=== PATIENT | male | born 1950 | race Caucasian/White ===

== ENCOUNTER 2017-02-08 11:38 | Observation (INO) ==
[2017-02-08] MEDS ORDERED: NALOXONE 0.4 MG/ML VIAL IV STA (12:05)
[2017-02-08] MEDS ORDERED: SODIUM CHLORIDE 0.9% 1,000 ML IV STA ×2 (12:05→14:38)
--- NOTE | 2017-02-08 12:24 | XRay Report ---
XR chest 1V portable Indication: Altered mental status Comparison: Chest x-ray dated June 09, 2016 Technique: Single frontal view of the chest Findings: The cardiomediastinal silhouette is stable in configuration. Chronic change of the lungs without focal consolidation, pleural effusion, or pneumothorax. Visualized osseous and surrounding soft tissue structures appear grossly unchanged. IMPRESSION: Stable chest x-ray without acute cardiopulmonary process demonstrated. PROCEDURE INTERPRETED AT [facility] DEPARTMENT OF RADIOLOGY Final Report Signed by: Dr Aditya Herman
--- NOTE | 2017-02-08 12:26 | CT Report ---
CT head/brain wo con Indication: Mental status changes Comparison: CT brain dated June 09, 2015 Technique: Multiple axial tomographic images of the brain were obtained without the use of intravenous contrast. Findings: Midline structures are nondisplaced. There is no acute intracranial hemorrhage or evidence of hydrocephalus. Moderate periventricular and subcortical hypoattenuation noted which is nonspecific but consistent with chronic microvascular ischemic change. Old lacunar infarcts of bilateral basal ganglia and left webber radiata frontal lobe. Patchy ethmoid opacification. Mastoid air cells are clear. IMPRESSION: No acute intracranial abnormality demonstrated. Chronic findings as detailed above. The CT exam was performed using one or more of the following dose reduction techniques: Automated exposure control, adjustment of the mA and/or kV according to patient size, or use of iterative reconstruction technique. PROCEDURE INTERPRETED AT [facility] DEPARTMENT OF RADIOLOGY Final Report Signed by: Dr Aditya Herman
[2017-02-08] MEDS ORDERED: NALOXONE 0.4 MG/ML VIAL ONE (12:30)
[2017-02-08 12:44] LABS: Basophils # 0.1 10*3/uL (0.0-0.2); Basophils % 0.8 % (0.0-0.8); Eosinophils # 0.4 10*3/uL (0.0-0.87); Eosinophils % 4.3 % (0.00-10.9); Hematocrit 34.1 VOL% (42.0-52.0); Hemoglobin 11.6 GM/DL (14.0-18.0); Immature Granulocytes % 0.8 %; Immature Granulocytes Absolute 0.08 #; Lymphocytes # 2.8 10*3/uL (1.4-4.0); Lymphocytes % 28.9 % (21.2-54.2); Mean Corpuscular Hemoglobin 29 PG (27-34); Mean Corpuscular Volume 85.9 FL (87-102); Mean Platelet Volume 10.8 FL (9.6-12.0); Monocytes # 0.8 10*3/uL (0.11-0.8); Neutrophils # 5.6 10*3/uL (1.4-7.4); Neutrophils % 57.2 % (38.7-73.9); Platelet Count 176 T/CUMM (130-400); Red Blood Count 3.97 MC/CUMM (3.8-5.5); Red Cell Distribution Width 13.3 % (9.3-17.3); White Blood Count 9.8 T/CUMM (4-12)
[2017-02-08 13:08] LABS: Barbiturates Screen,Urine Negative (Negative); Benzodiazepines Screen,Urine Positive (Negative); Cannabinoid Screen,Urine Negative (Negative); Opiate Screen,Urine Positive (Negative); Phencyclidine Screen,Urine Negative (Negative)
[2017-02-08 13:24] LABS: Alanine Aminotransferase 18 U/L (16-61); Albumin 3.1 G/DL (3.4-5.0); Alkaline Phosphatase 44 U/L (45-117); Aspartate Amino Transferase 13 U/L (0-37); Bilirubin,Total < 0.39 MG/DL (0.2-1.0); Blood Urea Nitrogen 17 MG/DL (7-18); Calcium 8.4 MG/DL (8.5-10.1); Glucose 130 MG/DL (74-106); Magnesium 1.8 MG/DL (1.8-2.4); Osmolality,Calculated 282.4 MOS/KG (273-304); Potassium 3.6 MMOL/L (3.5-5.1); Sodium 140 MMOL/L (136-145); Total Protein 6.1 G/DL (6.4-8.3)
--- NOTE | 2017-02-08 14:37 | Emergency Department Note ---
Melvi Caldwell Hilary, am scribing for, and in the presence of, Osman Hampton MD 12:05. Memo Caldwell Phillip K, MD, personally performed the services described in this documentation, ascribed by Dary Ogden in my presence, and it is both accurate and complete [id number] . Arrival - Arrival Chief Complaint: Altered Mental Status Stated Complaint: altered mental status ED Nursing Triage Note: Brought in per EMS from [facility] with c/o altered mental status. Patient admits to taking Zanaflex x 2, Xanax x 1 this am. Was in process of being admitted to [facility] and became unresponsive and hypotensive 56/36. Arousable to verbal stimuli. Mode of Arrival: Stretcher Limitations: No Limitations Source: Patient, RN Notes Reviewed - History of Present Illness HPI Narrative: Pt is a 66 y/o male brought into the ED via EMS from [facility] with c/ o AMS. Pt was in the process of being admitted to [facility] and became unresponsive and hypotensive. Pt admits to taking Zanaflex x2, Xanax x1 this AM. No other complaints or problems stated in the ED. Allergies/Adverse Reactions: Allergies Allergy/AdvReac Type Severity Reaction Status Date / Time ketorolac [From Toradol] AdvReac Severe Flushing Verified 02/08/17 11:45 Home Medications: Home Medications Medication Instructions Recorded Confirmed Type Albuterol Sulfate [Proair HFA] 2 puff INH Q6H PRN 08/11/15 02/08/17 History Atorvastatin [Lipitor] 40 mg PO BEDTIME 08/11/15 02/08/17 History Gabapentin 600 mg PO BID 08/11/15 02/08/17 History HYDROcodone/ACETAMIN 10-325 [Eldena 10 mg PO Q6HR PRN 08/11/15 02/08/17 History 10-325] Lisinopril 20 mg PO DAILY 08/11/15 02/08/17 History Metformin HCl 1,000 mg PO BID 08/11/15 02/08/17 History Sertraline [Zoloft] 100 mg PO BID 08/11/15 02/08/17 History sitaGLIPtin [Januvia] 100 mg PO DAILY 08/11/15 02/08/17 History Insulin Detemir [Levemir] 20 units SUBCUT BEDTIME 10/29/16 02/08/17 History Ticagrelor [Brilinta] 90 mg PO BID 10/29/16 02/08/17 History QUEtiapine [SEROquel] 100 mg PO TID #90 tablet 11/10/16 02/08/17 Rx Zaleplon [Sonata] 5 mg PO BEDTIME PRN #30 capsule 11/10/16 02/08/17 Rx traZODone [Desyrel] 50 mg PO TID #90 tablet 11/10/16 02/08/17 Rx ALPRAZolam [Alprazolam] 1 mg PO BID PRN 02/08/17 02/08/17 History Finasteride 5 mg PO DAILY 02/08/17 02/08/17 History Gabapentin 1,200 mg PO BEDTIME 02/08/17 02/08/17 History OXcarbazepine [Oxcarbazepine] 300 mg PO BID 02/08/17 02/08/17 History Thiothixene 10 mg PO TID 02/08/17 02/08/17 History Tizanidine HCl 4 mg PO BEDTIME 02/08/17 02/08/17 History Review of System - Review of System ROS unobtainable: due to mental status 12 point system: reviewed and no additional remarkable complaints except as stated Medical,Surgical,& Family Hx - Medical History Cardio: History of: CAD (Cardiac stent), Hypertension Psychological: History of: Anxiety Disorders, Depression No history of: Behavior Problems ("I DON'T KNOW IF I HAVE OR NOT..."), Violent Behavior, Psychiatric Problems Neurology: No history of: Seizures Endocrine: History of: Diabetes Mellitus (IDDM), Diabetes Mellitus (NIDDM), Dyslipidemia Respiratory: History of: Bronchitis, COPD Genitourinary: History of: Prostate Problems (DIFFICULTY URINATING) Musculoskeletal: History of: Amputation (Right AKA), Back/Neck Problems - Surgical History Cardiac Surgeries: Sugical HX of: Cardiac Catheterization (has had stents of coronary arteries) Orthopedic Surgeries: Surgical HX of;: Orthopedic Surgery (PLATE IN LEFT HIP 2010. Patient has right [id number] amputation) - Family History Family History: Reports;: Family Heart Disease - Social History Smoking Status: Current every day smoker Frequency of Alcohol Use: Unknown Type of Drug Use: Unknown Exam Vital Signs: Vital Signs Temperature 97.1 F L 02/08/17 11:42 Pulse Rate 89 02/08/17 11:42 Respiratory Rate 16 02/08/17 11:42 Blood Pressure 71/43 02/08/17 11:42 O2 Sat by Pulse Oximetry 94 L 02/08/17 11:38 - General General appearance: in no apparent distress, lethargic - Head Head exam: Present: atraumatic, normocephalic - Eye Eye exam: Present: normal appearance, PERRL, EOMI - ENT ENT exam: Present: mucous membranes dry, TM's normal bilaterally. Absent: mucous membranes moist - Neck Neck exam: Present: full ROM, trachea midline. Absent: tenderness - Chest Chest inspection: Present: symmetric chest wall rise. Absent: tenderness - Respiratory Respiratory exam: Present: normal lung sounds bilaterally. Absent: respiratory distress - Cardiovascular Cardiovascular exam: Present: regular rate, normal rhythm, normal heart sounds. Absent: murmur, rubs, gallop - Abdominal Exam Abdominal exam: Present: soft, normal bowel sounds. Absent: distention, tenderness - Extremities Exam Extremities exam: Present: full ROM, other (right above knee amputation ). Absent: tenderness - Back Exam Back exam: Present: full ROM. Absent: tenderness - Neurological Exam Neurological exam: Present: alert, oriented X3, CN II-XII intact. Absent: motor sensory deficit - Psychiatric Psychiatric exam: Present: normal affect, normal mood - Skin Skin exam: Present: warm, dry, intact, normal color. Absent: rash Course Course Narrative: Admit to the hospitalist Results - Labs CBC & BMP: 02/08/17 12:23 02/08/17 12:23 Lab Results: I have reviewed the patients labs Labs: Laboratory Tests 02/08/17 12:23 WBC 9.8 RBC 3.97 Hgb 11.6 L Hct 34.1 L MCV 85.9 L Laboratory Tests 02/08/17 02/08/17 12:23 12:23 Sodium 140 Potassium 3.6 Chloride 103 Carbon Dioxide 27 Glucose 130 H Calcium 8.4 L Alkaline Phosphatase 44 L Total Protein 6.1 L Albumin 3.1 L Albumin/Globulin Ratio 1.0 L Urine Opiates Screen Positive H U Benzodiazepines Scrn Positive H Serum Alcohol < 15 L - Diagnostic Findings Procedure: Chest x-ray: report reviewed by me (Stable chest x-ray without acute cardiopulmonary process demonstrated. ), CT: report reviewed by me (head/brain: No acute intracranial abnormality demonstrated. ) Disposition Clinical Impression: Hypotension, Altered mental status Case discussed with: patient Disposition: Still a Patient Condition: Guarded Additional Instructions: Admit to the hospitalist
[2017-02-08] MEDS ORDERED: ACETAMINOPHEN 325 MG TABLET PO PRN (16:38)
[2017-02-08] MEDS ORDERED: ONDANSETRON 4 MG/2 ML VIAL IV PRN (16:38)
[2017-02-08] MEDS ORDERED: DEXTROSE 50% 25 GM/50 ML VIAL IV PRN (16:48)
[2017-02-08] MEDS ORDERED: GLUCAGON 1 MG VIAL IM PRN (16:48)
[2017-02-08] MEDS: SODIUM CHLORIDE 0.9% 1,000 ML IV SCH (16:58)
[2017-02-08] MEDS ORDERED: ENOXAPARIN 40 MG/0.4 ML SYRINGE SUBCUT SCH (17:00)
--- NOTE | 2017-02-08 17:13 | Hospitalist History & Physical ---
Assessment and Plan (1) Suicidal ideation Status: Acute Current Visit: Yes (2) Major depressive disorder Status: Acute Current Visit: No (3) Anxiety disorder Status: Acute Current Visit: No (4) History of right above knee amputation Status: Acute Current Visit: No (5) Hypotension Status: Acute Current Visit: Yes (6) Altered mental status Status: Acute Assessment and plan: Our plan for this patient will be admission to ICU. Patient will be closely observed. Will consult case management for assistance. We will continue with IV fluids. Check labs in the morning. Hopefully if everything is okay patient can be referred to [facility] tomorrow. We will hold some of his sedating medications at this time. Current Visit: Yes History of Present Illness Chief complaint: Hypotensive decreased responsiveness History of present illness: Mr. Luna is a 66 year old male with past medical history of coronary artery disease, diabetes, depression and prescription drug overuse presents to our ER today. Patient lives with her sister. She feels like she has to watch him all the time. She said he was fine this morning she got in the shower but when she got out he was lying down on the bed. He was very drowsy and hard to arouse. Today was the day he was supposed to be admitted to [facility]. Patient took some Zanaflex and some Xanax. Patient's family seems to be very angry with his doctor prescribing him Xanax. They claim that they did not know that he had any more Xanax. They say typically he takes his months prescription in the first 3 or 4 days. And this I want to take run through Xanax he takes [place]'s or other medications that he is prescribed. He does seem to overindulge in these medications. Apparently they were taken amount to [facility] and shaking him and in his blood pressure was low and they referred him to our emergency room. Patient received 2 L of normal saline while in the emergency room he is still lethargic I was consulted to admit him. I was looking to the paperwork in the chart and apparently patient is expressed desire to hurt himself. I am consulted to admit him for decreased responsiveness suicidal ideation and altered mental status Home Medications Medication Instructions Recorded Confirmed Type Albuterol Sulfate [Proair HFA] 2 puff INH Q6H PRN 08/11/15 02/08/17 History Atorvastatin [Lipitor] 40 mg PO BEDTIME 08/11/15 02/08/17 History Gabapentin 600 mg PO BID 08/11/15 02/08/17 History HYDROcodone/ACETAMIN 10-325 [[place] 10 mg PO Q6HR PRN 08/11/15 02/08/17 History 10-325] Lisinopril 20 mg PO DAILY 08/11/15 02/08/17 History Metformin HCl 1,000 mg PO BID 08/11/15 02/08/17 History Sertraline [Zoloft] 100 mg PO BID 08/11/15 02/08/17 History sitaGLIPtin [Januvia] 100 mg PO DAILY 08/11/15 02/08/17 History Insulin Detemir [Levemir] 20 units SUBCUT BEDTIME 10/29/16 02/08/17 History Ticagrelor [Brilinta] 90 mg PO BID 10/29/16 02/08/17 History QUEtiapine [SEROquel] 100 mg PO TID #90 tablet 11/10/16 02/08/17 Rx Zaleplon [Sonata] 5 mg PO BEDTIME PRN #30 capsule 11/10/16 02/08/17 Rx traZODone [Desyrel] 50 mg PO TID #90 tablet 11/10/16 02/08/17 Rx ALPRAZolam [Alprazolam] 1 mg PO BID PRN 02/08/17 02/08/17 History Finasteride 5 mg PO DAILY 02/08/17 02/08/17 History Gabapentin 1,200 mg PO BEDTIME 02/08/17 02/08/17 History OXcarbazepine [Oxcarbazepine] 300 mg PO BID 02/08/17 02/08/17 History Thiothixene 10 mg PO TID 02/08/17 02/08/17 History Tizanidine HCl 4 mg PO BEDTIME 02/08/17 02/08/17 History Allergies Allergy/AdvReac Type Severity Reaction Status Date / Time ketorolac [From Toradol] AdvReac Severe Flushing Verified 02/08/17 11:45 Medical,Surgical,& Family Hx - Medical History Cardio: History of: CAD (Cardiac stent), Hypertension, Cardiovascular Problems ( stents) Psychological: History of: Anxiety Disorders, Depression, Previous Suicide Attempt No history of: Behavior Problems ("I DON'T KNOW IF I HAVE OR NOT..."), Violent Behavior, Psychiatric Problems Neurology: No history of: Seizures Endocrine: History of: Diabetes Mellitus (IDDM), Diabetes Mellitus (NIDDM), Dyslipidemia Respiratory: History of: Bronchitis, COPD Genitourinary: History of: Prostate Problems (DIFFICULTY URINATING) Musculoskeletal: History of: Amputation (Right AKA), Back/Neck Problems - Surgical History Cardiac Surgeries: Sugical HX of: Cardiac Catheterization (has had stents of coronary arteries) Orthopedic Surgeries: Surgical HX of;: Orthopedic Surgery (PLATE IN LEFT HIP 2010. Patient has right [id number] amputation) - Family History Family History: Reports;: Family Diabetes, Family Heart Disease - Social History Smoking Status: Current every day smoker Frequency of Alcohol Use: Unknown Type of Drug Use: Unknown ROS unobtainable: due to mental status Exam - Constitutional Vitals: Period Temp Pulse Resp BP Sys/Buchanan Pulse Ox Last 24 Hr 13 - General General appearance: in no apparent distress, lethargic - Head Head exam: Present: atraumatic, normocephalic - Eye Eye exam: Present: normal appearance, PERRL, EOMI - ENT ENT exam: Present: mucous membranes dry, TM's normal bilaterally. Absent: mucous membranes moist - Neck Neck exam: Present: full ROM, trachea midline - Chest Chest inspection: Present: symmetric chest wall rise. - Respiratory Respiratory exam: Present: normal lung sounds bilaterally - Cardiovascular Cardiovascular exam: Present: regular rate, normal rhythm, normal heart sounds. - Abdominal Exam Abdominal exam: Present: soft, normal bowel sounds. Absent: distention, tenderness - Extremities Exam Extremities exam: Present: full ROM, other (right above knee amputation ). - Back Exam Back exam: Present: full ROM. - Neurological Exam Neurological exam: Present: alert, oriented X3, CN II-XII intact. - Psychiatric Psychiatric exam: Present: normal affect, normal mood - Skin Skin exam: Present: warm, dry, intact, normal color Results - Labs CBC & BMP: 02/08/17 12:23 02/08/17 12:23
[2017-02-08] MEDS ORDERED: ALBUTEROL 2.5 MG/3 ML NEB RESP TX PRN (19:00)
[2017-02-08] MEDS ORDERED: ATORVASTATIN 40 MG TABLET PO SCH (21:00)
[2017-02-08] MEDS: TICAGRELOR 90 MG TABLET PO SCH (21:42)
[2017-02-08] MEDS: INSULIN REGULAR 100 UNIT/ML SUBCUT SCH (21:42)
[2017-02-08] MEDS: QUEtiapine 100 MG TABLET PO SCH (21:45)
[2017-02-08] MEDS: OXcarbazepine 300 MG TABLET PO SCH (21:49)
[2017-02-08] MEDS: SERTRALINE 100 MG TABLET PO SCH (21:49)
[2017-02-09] MEDS: SODIUM CHLORIDE 0.9% 1,000 ML IV SCH (01:06)
[2017-02-09 05:01] LABS: Basophils # 0.1 10*3/uL (0.0-0.2); Eosinophils # 0.4 10*3/uL (0.0-0.87); Eosinophils % 4.9 % (0.00-10.9); Hematocrit 34.7 VOL% (42.0-52.0); Hemoglobin 11.6 GM/DL (14.0-18.0); Immature Granulocytes % 0.9 %; Immature Granulocytes Absolute 0.07 #; Lymphocytes # 1.9 10*3/uL (1.4-4.0); Lymphocytes % 23.4 % (21.2-54.2); Mean Corpuscular HGB Conc 33.4 GM/DL (32-36); Mean Corpuscular Hemoglobin 28 PG (27-34); Mean Platelet Volume 11.5 FL (9.6-12.0); Monocytes # 0.7 10*3/uL (0.11-0.8); Monocytes % 8.7 % (1.7-12.7); Neutrophils % 61.1 % (38.7-73.9); Platelet Count 189 T/CUMM (130-400); Red Blood Count 4.08 MC/CUMM (3.8-5.5); Red Cell Distribution Width 13.2 % (9.3-17.3); White Blood Count 8.2 T/CUMM (4-12)
[2017-02-09 05:28] LABS: Osmolality,Calculated 282.3 MOS/KG (273-304); Potassium 4.1 MMOL/L (3.5-5.1)
--- NOTE | 2017-02-09 06:01 | EKG Report ---
Stationary ECG Study [facility] ER Test Date: 02/08/2017 12:52:25 PM Pat Name: VICTOR M LOREDO Department: Room: 117 Gender: M [employer] Manager: ISAIAH Yañez : 1950 Requested by: Osman Slaughter Order Number: [id number] Reading MD: MATEUSZ PATIÑO Intervals [place] Rate: 75 P: 55 PA: 134 QRS: -50 QRSD: 122 T: 69 QT: 407 QTc: 435 Interpretive Statements SINUS RHYTHM LEFT ANTERIOR FASCICULAR BLOCK MILD NST Electronically Signed On 02-09-17 08:49:44 CDT by MATEUSZ PATIÑO [email or web address]
[2017-02-09] MEDS: OXcarbazepine 300 MG TABLET PO SCH (08:11)
[2017-02-09] MEDS: SERTRALINE 100 MG TABLET PO SCH (08:11)
[2017-02-09] MEDS: QUEtiapine 100 MG TABLET PO SCH (08:11)
[2017-02-09] MEDS: TICAGRELOR 90 MG TABLET PO SCH (08:11)
[2017-02-09] MEDS: INSULIN REGULAR 100 UNIT/ML SUBCUT SCH ×2 (08:12→12:28)
[2017-02-09] MEDS ORDERED: PANTOPRAZOLE 40 MG TABLET PO SCH (09:00)
[2017-02-09] MEDS ORDERED: FINASTERIDE 5 MG TABLET PO SCH (09:00)
[2017-02-09] MEDS ORDERED: LISINOPRIL 20 MG TABLET PO SCH (09:00)
[2017-02-09] MEDS ORDERED: NICOTINE 21 MG/24 HR PATCH TRANSDERM SCH (09:00)
[2017-02-09] MEDS ORDERED: sitaGLIPtin 100 MG TABLET PO SCH (09:00)
[2017-02-09] MEDS ORDERED: ALPRAZolam 0.5 MG TABLET PO PRN (10:25)
[2017-02-09] MEDS ORDERED: GABAPENTIN 600 MG TABLET PO SCH (10:30)
--- NOTE | 2017-02-09 11:00 | Hospitalist Progress Note ---
Assessment and Plan (1) Suicidal ideation Status: Acute Assessment and plan: No longer having suicidal ideations. We will have [facility] assess. Current Visit: Yes (2) History of prescription drug abuse Status: Acute Assessment and plan: Consult [facility] Current Visit: Yes (3) Essential hypertension Status: Acute Assessment and plan: Hypotensive on admission which is now resolved. Hep-Lock IV fluids and start him back on lisinopril Current Visit: No (4) unspecified mood disorder Status: Acute Assessment and plan: Continue Zoloft, Seroquel, Trileptal and thiothixene Current Visit: No (5) unspecified anxiety disorder Status: Acute Assessment and plan: cont xanax bid, prn will lower dose Current Visit: No (6) poor coping skills problem solving skill Status: Acute Assessment and plan: needs counseling Current Visit: No (7) Hypotension Status: Acute Assessment and plan: resolved HL IVF Current Visit: Yes (8) Altered mental status Status: Acute Assessment and plan: resolved Current Visit: Yes (9) IDDM (insulin dependent diabetes mellitus) Status: Acute Assessment and plan: hold lantus, cont januvia Current Visit: Yes Hospitalist: Subjective Interval history: [facility] has accepted patient but changed their mind when they read the note that he has a history of drug abuse. They have denied him now. Will ask [facility] if they are willing to take him. Patient reports he is not actively suicidal. He seems very depressed though. His hypotension has resolved and we have Hep-Lock his IV fluids. Exam - Constitutional Vitals: Period Temp Pulse Resp BP Sys/Buchanan Pulse Ox Last 24 Hr 97.6 F-98.3 F 72-92 7-23 111-185/48-88 94-100 Exam: Heart Rate-[RRR] Lungs-[CTAB] GI-[+bs soft, NT] Ext-[no edema] Neuro [Motor 5/5], [alert and oriented times 3] psych [depressed mood and affect] General [no acute distress] Results - Labs CBC & BMP: 02/09/17 04:12 02/09/17 04:12 Lab Results: I have reviewed the past 24 hour labs
[2017-02-09] MEDS: ALBUTEROL/IPRATROPIUM 3 ML NEB RESP TX SCH ×2 (11:35→16:03)
[2017-02-09] MEDS ORDERED: ZIPRASIDONE 20 MG/1 ML VIAL IM ONE (16:32)
[2017-02-09] MEDS ORDERED: SERTRALINE 50 MG TABLET PO SCH (16:51)
[2017-02-09 16:54] VITALS: BP 164/75
--- NOTE | 2017-02-09 16:57 | Discharge Summary ---
Hospital Course - Hospital Course Hospital Course: 66-year-old male with a history of prescription drug abuse admitted to the hospital last night due to altered mental status and hypotension. Sisters have told the social work specialist that they want to give him get him some help for his prescription drug abuse. We asked [facility] to look at him that his blood pressure did come back to normal and his altered mental status had resolved. Dr. Browne refused to take him as he does not deal with people who need detox. Patient is on multiple medications that were prescribed by a psychiatrist but he has not taken several of them in [address] Gallegos is his primary care doctor. Both him and the sisters deny suicidal ideation. I do not believe he needs a hold. [place] has come to see him but he does not prefer to go to [facility] because they will not allow him to smoke. Because patient is not actively suicidal he is stable to be discharged home in the care of his sisters. Patient needs a follow-up with [facility] as an outpatient and with Dr. Gallegos in the next few days. - Time spent with patient Time with patient DS: Greater than 30 minutes (50 min) Diagnosis - Discharge Diagnosis (1) Suicidal ideation Status: Acute (2) History of prescription drug abuse Status: Acute (3) Essential hypertension Status: Acute (4) unspecified mood disorder Status: Acute (5) unspecified anxiety disorder Status: Acute (6) poor coping skills problem solving skill Status: Acute (7) Hypotension Status: Acute (8) Altered mental status Status: Acute (9) IDDM (insulin dependent diabetes mellitus) Status: Acute Discharge Plan - Discharge Data Disposition: Disch To Home/Self Care Condition at Discharge: Stable Discharge Diet: heart healthy Activity: resume usual activities as tolerated Hygiene: no restrictions Weight Bearing at Discharge: full weight bearing - Discharge Medications Continue Albuterol Sulfate [Proair HFA] 2 puff INH Q6H PRN PRN Reason: Shortness Of Breath/Wheezing Atorvastatin [Lipitor] 40 mg PO BEDTIME Lisinopril 20 mg PO DAILY sitaGLIPtin [Januvia] 100 mg PO DAILY Metformin HCl 1,000 mg PO BID Gabapentin 600 mg PO BID Finasteride 5 mg PO DAILY OXcarbazepine [Oxcarbazepine] 300 mg PO BID Ticagrelor [Brilinta] 90 mg PO BID Changed ALPRAZolam [Alprazolam] 0.5 mg PO BID PRN #0 PRN Reason: Anxiety Insulin Detemir [Levemir] 10 units SUBCUT BEDTIME #0 Sertraline [Zoloft] 50 mg PO BID #0 traZODone [Desyrel] 50 mg PO BEDTIME #90 tablet QUEtiapine [SEROquel] 100 mg PO BEDTIME #90 tablet Discontinued HYDROcodone/ACETAMIN 10-325 [[place] 10-325] 10 mg PO Q6HR PRN PRN Reason: Pain Gabapentin 1,200 mg PO BEDTIME Thiothixene 10 mg PO TID Tizanidine HCl 4 mg PO BEDTIME Zaleplon [Sonata] 5 mg PO BEDTIME PRN #30 capsule PRN Reason: Sleep - Follow Up or Referral Follow Up: Evangelina Gallegos MD [Physician] - [address] [facility] [Other] - 1 Week - Forms/Instructions Exam - Constitutional Vitals: Period Temp Pulse Resp BP Sys/Buchanan Pulse Ox Last 24 Hr 97.6 F-98.6 F 70-94 7-26 111-185/48-136 92-100 Exam: see note from today Discharge Results Procedures and tests throughout hospitalization: Pending Orders 02/08/17 16:50 MRSA Surveillence, Inf Control Routine Labs on day of discharge: Labs from last 24 hours 02/09/17 02/09/17 02/09/17 11:33 04:12 04:12 WBC 8.2 RBC 4.08 Hgb 11.6 L Hct 34.7 L MCV 85.0 L MCH 28 MCHC 33.4 RDW 13.2 Plt Count 189 MPV 11.5 Neut % (Auto) 61.1 Lymph % (Auto) 23.4 Kaufman % (Auto) 8.7 Eos % (Auto) 4.9 Baso % (Auto) 1.0 H Neut # (Auto) 5.0 Lymph # (Auto) 1.9 Kaufman # (Auto) 0.7 Eos # (Auto) 0.4 Baso # (Auto) 0.1 Immature Gran % 0.9 Nucleated RBC % 0.0 Immature Gran # 0.07 Nucleated RBCs # 0.00 Sodium 141 Potassium 4.1 Chloride 107 Carbon Dioxide 26 Anion Gap 12.1 BUN 14 Creatinine 0.90 GFR Calculation 98 BUN/Creatinine Ratio 15.00 Glucose 123 H POC Glucose 161 H Calculated Osmolality 282.3 Calcium 8.0 L 02/08/17 21:42 WBC RBC Hgb Hct MCV MCH MCHC RDW Plt Count MPV Neut % (Auto) Lymph % (Auto) Kaufman % (Auto) Eos % (Auto) Baso % (Auto) Neut # (Auto) Lymph # (Auto) Kaufman # (Auto) Eos # (Auto) Baso # (Auto) Immature Gran % Nucleated RBC % Immature Gran # Nucleated RBCs # Sodium Potassium Chloride Carbon Dioxide Anion Gap BUN Creatinine GFR Calculation BUN/Creatinine Ratio Glucose POC Glucose 129 H Calculated Osmolality Calcium DS: Provider Date of admission: 02/08/17 15:53 Primary care physician: Cristal Segura MD Attending physician on admission: Micah Araiza MD Consults: 02/08/17 16:42 Consult to Case Mgmt/Social Srvs [CONS] Routine Reason for Case Mgmt/Social Srvs: Psychiatric Management Consult Comment: [facility] Discharging clinician: Rebecca Zuniga MD
[2017-02-09] MEDS ORDERED: QUEtiapine 100 MG TABLET PO SCH (21:00)
[2017-02-09] MEDS ORDERED: INSULIN GLARGINE 100 UNIT/ML SUBCUT SCH (21:00)
== END 2017-02-09 17:15 | disposition home or self-care (01) ==
LOC: EDBD → EDUNIT# → N.EDINP 11:38 → N.ED 11:38 → SUATTDRO 15:53 → N.ICU 16:13 → N.4E 02-09 15:11
PROVIDERS: ADMIT Internal Medicine; ATTEND Internal Medicine

== ENCOUNTER 2017-05-24 16:36 | Observation (INO) ==
[2017-05-24] MEDS ORDERED: NITROGLYCERIN 2% OINT 1 INCH/GM PACK TOP STA (16:48)
[2017-05-24] MEDS ORDERED: ENOXAPARIN 100 MG/ML SYRINGE SUBCUT STA (16:48)
--- NOTE | 2017-05-24 16:51 | EKG Report ---
Stationary ECG Study [facility] ER Test Date: 05/24/2017 4:43:38 PM Pat Name: VICTOR M LOREDO Department: Room: Gender: M Tax Attorney: : 1950 Requested by: Darryl Bahena Order Number: [id number] Reading MD: ABIGAIL RICHMOND Intervals [place] Rate: 76 P: 63 NE: 130 QRS: -14 QRSD: 118 T: 74 QT: 366 QTc: 397 Interpretive Statements SINUS RHYTHM INCOMPLETE RIGHT BUNDLE BRANCH BLOCK Electronically Signed On 05-24-17 20:15:58 CDT by ABIGAIL RICHMOND [id number]
[2017-05-24] MEDS ORDERED: ENOXAPARIN 100 MG/ML SYRINGE SUBCUT ONE (16:55)
[2017-05-24] MEDS ORDERED: NITROGLYCERIN 2% OINT 1 INCH/GM PACK TOP ONE (16:55)
--- NOTE | 2017-05-24 16:58 | Emergency Department Note ---
Ervin Caldwell Gwan, am scribing for, and in the presence of, Darryl Granados MD 16:53 . Roberta Caldwell James D, MD, personally performed the services described in this documentation, ascribed by Yaneth Mueller in my presence, and it is both accurate and complete . 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 pt went to dr gallardo office earlier and was told he had a light mi and is scheduled for a heart cath on . 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 Patient stated that he is scheduled to get a heart catheterization done by Dr. Latif on 05/26/2017. Patient continued to note that his chest pain dissolved in route after being administered 2 NTG. During exam, patient stated that he is asymptomatic. He confirmed that he has a SHx of smoking .5 to 1ppd cigarettes. No other problems/complaints reported in ED. Onset (ago): hour(s) Consistency: constant Severity: moderate Allergies/Adverse Reactions: Allergies Allergy/AdvReac Type Severity Reaction Status Date / Time codeine Allergy HIVES Verified 04/27/17 17:09 ketorolac [From Toradol] AdvReac Severe Flushing Verified 02/18/17 19:09 Home Medications: Home Medications Medication Instructions Recorded Confirmed Type Atorvastatin [Lipitor] 40 mg PO BEDTIME 08/11/15 05/24/17 History Gabapentin 400 mg PO TID 08/11/15 05/24/17 History Lisinopril 20 mg PO QAM 08/11/15 05/24/17 History Metformin HCl 1,000 mg PO BID W/MEALS 08/11/15 05/24/17 History sitaGLIPtin [Januvia] 100 mg PO QAM 08/11/15 05/24/17 History QUEtiapine [SEROquel] 100 mg PO BEDTIME #90 tablet 02/09/17 05/24/17 Rx Buspirone HCl 10 mg PO TID 04/29/17 05/24/17 History Hydrocodone/Acetaminophen [[place] 1 each PO Q6H PRN 04/29/17 05/24/17 History 10-325 Tablet] Carvedilol [Carvedilol] 3.125 mg PO BID 05/24/17 05/24/17 History Insulin Detemir [Levemir] 20 units SUBCUT BEDTIME 05/24/17 05/24/17 History Nitroglycerin Sl Tab [Nitrostat] 0.4 mg SL Q5M PRN 05/24/17 05/24/17 History Omeprazole 20 mg PO DAILY PRN 05/24/17 05/24/17 History Sertraline HCl [Sertraline HCl] 150 mg PO QAM 05/24/17 05/24/17 History Tizanidine HCl [Tizanidine HCl] 2 mg PO BEDTIME 05/24/17 05/24/17 History Review of System - Review of System 12 point system: reviewed and no additional remarkable complaints except as stated - Review of System Constitutional: Absent: chills, fever Eyes: Absent: discharge, pain Respiratory: Present: as per HPI, other (shortness of breathe) Cardiovascular: Present: as per HPI, chest pain. Absent: palpitations Gastrointestinal: Absent: abdominal pain, nausea, diarrhea Medical,Surgical,& Family Hx - Medical History Cardio: History of: CAD (Cardiac stent), Hypertension, [place] (stent placement x3), Cardiovascular Problems (stents) Psychological: History of: Anxiety Disorders, Depression, Previous Suicide Attempt, Psychiatric/Substance Abuse Tx No history of: Violent Behavior, Psychiatric Problems Comment Only: Behavior Problems ("I DON'T KNOW IF I HAVE OR NOT...") Neurology: No history of: Seizures Endocrine: History of: Diabetes Mellitus (IDDM), Diabetes Mellitus (NIDDM), Dyslipidemia Respiratory: History of: Bronchitis, COPD Genitourinary: History of: Prostate Problems (DIFFICULTY URINATING) Musculoskeletal: History of: Amputation (RIGHT AKA), Back/Neck Problems - Surgical History Cardiac Surgeries: Sugical HX of: Cardiac Catheterization (STENTS X3) Orthopedic Surgeries: Surgical HX of;: Orthopedic Surgery (PLATE IN LEFT HIP 2010. Patient has right [id number] amputation) - Family History Family History: Reports;: Family Diabetes, Family Heart Disease - Social History Smoking Status: Current every day smoker Frequency of Alcohol Use: None Type of Drug Use: None Exam Physical Examination: GENERAL: This is a chronically ill-appearing white male, smells of cigarette smoke, in no apparent distress. VITAL SIGNS: HEENT: Head is normocephalic and atraumatic. Pupils are equally round and reactive to light. Extraocular movement are intact. Oropharynx is benign with moist mucous membranes. NECK: Neck is soft and supple without tenderness. There are no masses. There is no lymphadenopathy. LUNGS: Lungs are clear to auscultation bilaterally. Chest rises symmetrically. There is no chest wall tenderness. CV: Heart is regular rate and rhythm without murmurs, rubs, or gallops. ABDOMEN: Abdomen is soft, non-tender to palpation. There are no abnormal masses palpated. There is no organomegaly. Bowel sounds are present and active. SKIN: Skin is warm and dry. No rash. EXTREMITIES: Right AKA. There is no pedal edema. NEUROLOGIC: Awake, alert, and oriented x4. Cranial nerves II through XII are grossly intact. There are no motorsensory deficits. PSYCHIATRIC: Normal affect. Normal mood. Vital Signs: Vital Signs Temperature 98.4 F 05/24/17 16:38 Pulse Rate 70 05/24/17 17:31 Respiratory Rate 21 05/24/17 17:31 Blood Pressure 134/69 05/24/17 17:31 O2 Sat by Pulse Oximetry 100 05/24/17 17:31 Course - Consultations Consultation #1: Discussed with Dr. Vidal. Patient will be admitted to Dr. Latif. Initial orders written for him. Cardiology will assume patient's care upon [facility] to the [facility]. Time: 18:15 Results - Labs CBC & BMP: 05/24/17 17:36 Lab Results: I have reviewed the patients labs Labs: Laboratory Tests 05/24/17 17:36 Troponin I < 0.015 - EKG EKG results: interpreted by ALAYNAD - Impressions EKG: Normal sinus rhythm with a rate of 76, incomplete right bundle branch block , ST segment depression inferiorly and laterally. - Diagnostic Findings Procedure: Chest x-ray: image reviewed by me (Hyperinflation bilaterally without infiltrates.) Disposition Clinical Impression: Coronary artery disease, Diabetes mellitus, Nicotine addiction, narcotic seeking behavior Case discussed with: patient Disposition: Still a Patient
[2017-05-24] MEDS ORDERED: ALBUTEROL 1.25 MG/3 ML NEB RESP TX STA (17:09)
[2017-05-24 17:46] LABS: Basophils # 0.1 10*3/uL (0.0-0.2); Basophils % 0.8 % (0.0-0.8); Eosinophils # 0.2 10*3/uL (0.0-0.87); Eosinophils % 1.9 % (0.00-10.9); Hematocrit 33.2 VOL% (42.0-52.0); Immature Granulocytes % 0.4 %; Immature Granulocytes Absolute 0.05 #; Lymphocytes # 2.7 10*3/uL (1.4-4.0); Lymphocytes % 24.3 % (21.2-54.2); Mean Corpuscular HGB Conc 36.1 GM/DL (32-36); Mean Corpuscular Hemoglobin 29 PG (27-34); Mean Corpuscular Volume 80.8 FL (87-102); Monocytes # 1.1 10*3/uL (0.11-0.8); Monocytes % 9.5 % (1.7-12.7); Neutrophils # 7.1 10*3/uL (1.4-7.4); Neutrophils % 63.1 % (38.7-73.9); Platelet Count 241 T/CUMM (130-400); Red Blood Count 4.11 MC/CUMM (3.8-5.5); Red Cell Distribution Width 12.8 % (9.3-17.3); White Blood Count 11.2 T/CUMM (4-12)
[2017-05-24 17:58] LABS: PT Patient Result 10.7 SECS
--- NOTE | 2017-05-24 18:01 | XRay Report ---
Exam: XR chest 1V portable Indication: Chest pain dyspnea Comparison study: 04/29/2017 Findings: The heart, mediastinum and bony structures are stable from prior. There is no focal consolidation, pneumothorax or pleural effusion identified. Bone anchors noted within the left proximal humerus. Impression: No acute cardiopulmonary process. PROCEDURE INTERPRETED AT [facility] DEPARTMENT OF RADIOLOGY Final Report Signed by: Nathan Garcia
[2017-05-24 18:13] LABS: Blood Urea Nitrogen 20 MG/DL (7-18); Calcium 9.2 MG/DL (8.5-10.1); Glucose 96 MG/DL (74-106); Osmolality,Calculated 253.5 MOS/KG (273-304); Potassium 4.4 MMOL/L (3.5-5.1); Sodium 125 MMOL/L (136-145); Troponin I Only < 0.015 NG/ML (0.00-0.045)
[2017-05-24] MEDS ORDERED: GLUCAGON 1 MG VIAL IM PRN (19:56)
[2017-05-24] MEDS ORDERED: MAGNESIUM SULF RIDER 2 GM in PREMIX 1 EACH IV PRN (19:56)
[2017-05-24] MEDS ORDERED: ALBUTEROL 2.5 MG/3 ML NEB RESP TX PRN (19:56)
[2017-05-24] MEDS ORDERED: MAGNESIUM SULF RIDER 4 GM in PREMIX 1 EACH IV PRN (19:56)
[2017-05-24] MEDS ORDERED: ONDANSETRON 4 MG/2 ML VIAL IV PRN (19:56)
[2017-05-24] MEDS ORDERED: DEXTROSE 50% 25 GM/50 ML SYRINGE IV PRN (19:56)
[2017-05-24] MEDS: SODIUM CHLORIDE 0.9% 1,000 ML IV SCH (22:45)
[2017-05-24] MEDS: INSULIN LISPRO 100 UNIT/ML SUBCUT SCH (22:52)
--- NOTE | 2017-05-25 06:56 | EKG Report ---
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
--- NOTE | 2017-05-25 06:57 | EKG Report ---
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
[2017-05-25] MEDS: SODIUM CHLORIDE 0.9% 1,000 ML IV SCH ×2 (07:02→15:29)
[2017-05-25] MEDS ORDERED: POTASSIUM CHLORIDE RIDER 10 MEQ in PREMIX 1 EACH IV PRN (07:28)
[2017-05-25] MEDS ORDERED: diphenhydrAMINE CAP 50 MG CAPSULE ONE (08:22)
[2017-05-25] MEDS ORDERED: DIAZEPAM 5 MG TABLET ONE (08:23)
[2017-05-25] MEDS ORDERED: ASPIRIN CHEW 81 MG TABLET PO ONE ×3 (09:00→10:04)
[2017-05-25] MEDS ORDERED: diphenhydrAMINE CAP 25 MG CAPSULE PO ONE (09:30)
[2017-05-25] MEDS ORDERED: DIAZEPAM 5 MG TABLET PO ONE (09:30)
[2017-05-25] MEDS ORDERED: NON-FORMULARY MEDICATION (Omeprazole [Omeprazole] 20 MG) PO PRN (09:49)
[2017-05-25] MEDS ORDERED: NITROGLYCERIN SL 0.4 MG TABLET SL PRN (09:49)
[2017-05-25] MEDS ORDERED: MEPERIDINE 25 MG/1 ML VIAL ONE (10:10)
[2017-05-25] MEDS ORDERED: MIDAZOLAM 2 MG/2 ML VIAL ONE (10:10)
--- NOTE | 2017-05-25 10:11 | History and Physical Update ---
Sedation H&P Update - History and Physical H&P was reviewed, the patient examined and there: are no changes in the patients condition since last H&P was completed. - Dictation Physical: refer to H&P completed by admitting physician - Physical Exam Mental Status: alert and oriented Heart: regular rate and rhythm Lung: clear to auscultation Abdomen: within normal limits Vitals: within normal limits History and Physical Changes: He has a right AKA. Right femoral pulse is 2+. Left femoral pulse 2+. Foot pulses are trace to 1+. - Sedation Plan for Sedation: minimal Patient Consent: Procedure disscussed with patient and patinet has consented., Risks and benefits were discussed with patient,including infection,, bleeding, injury to surrounding structures, seizure, temporary nerve, Patient understands and accepts potential risks/benefits and agrees to, proceed. (Left heart cath and possible PTCA or stent were discussed with the patient. The risk of the procedure include but are not limited to a small risk of injury to the vessel, abnormal heart rhythm, stroke, heart attack, need for emergent surgery, contrast reaction, restenosis, infection, or . The patient voices understanding, agrees with the plan, and desires to proceed with the heart catheterization.) ASA Class: II Airway Assessment: Class II: Soft palate, uvula, fauces visible
[2017-05-25] MEDS ORDERED: LIDOCAINE 1% 20 ML VIAL ONE ×3 (10:13→10:42)
--- NOTE | 2017-05-25 10:16 | Cardiology History & Physical ---
Jim Caldwell Lesley, BENJAMIN, am scribing for, and in the presence of, Jian Latif MD 10:15. Assessment and Plan - Time spent with patient Time spent with patient: Greater than 30 minutes (record review, assessment, and documentation) (1) Chest pain Status: Acute Assessment and plan: Progressive chest pain, known CAD, a component of anxiety Plan/recommendation: Admit to telemetry Continue Plavix Left heart cath and possible PTCA or stent. It will be done one day early because he came in earlier because of anxiety The risks, benefits, and alternatives discussed with the patient. He understands and wished to proceed Left heart cath and possible PTCA or stent were discussed with the patient. The risk of the procedure include but are not limited to a small risk of injury to the vessel, abnormal heart rhythm, stroke, heart attack, need for emergent surgery, contrast reaction, restenosis, infection, or . The patient voices understanding, agrees with the plan, and desires to proceed with the heart catheterization. Current Visit: Yes (2) Coronary artery disease Status: Chronic Assessment and plan: SEE PLAN LISTED BELOW Current Visit: Yes (3) Diabetes mellitus Status: Chronic Assessment and plan: SEE PLAN LISTED BELOW Current Visit: Yes (4) Nicotine addiction Status: Chronic Assessment and plan: SEE PLAN LISTED BELOW Current Visit: Yes (5) Anxiety Status: Chronic Assessment and plan: SEE PLAN LISTED BELOW Current Visit: No (6) High risk medication use Status: Chronic Assessment and plan: SEE PLAN LISTED BELOW Current Visit: Yes (7) Hyponatremia Status: Acute Assessment and plan: SEE PLAN LISTED BELOW Current Visit: Yes History of Present Illness Chief complaint: chest pain 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 Luna is a 66 year old male, known to Dr. Latif. He was seen by Dr. Latif in clinic 05/20/2017 and planned for heart cath this week. The patient came in through the emergency room yesterday with complaints of chest pain, anxiety, and shortness of breath. The patient reported that he took 2 sublingual nitroglycerin with some relief in pain. He does not define aggravating factors, and the pain was alleviated with nitroglycerin. He reports the pain was a 5 on the numeric pain scale. Cardiac risk factors include smoker (1 ppd), 3 prior coronary stents, diabetes, hypertension, dyslipidemia, heart murmur, chronic anticoagulation. He does have a positive family history of coronary artery disease and diabetes. Past surgical history includes coronary artery stent placement, cardiac cath, cholecystectomy, above- knee amputation of the right lower extremity. Past medical history significant for anxiety, panic attack, hyponatremia and hypomagnesemia, and psych issues. He does not report an allergy to contrast. C done 07/2015 revealed mild disease of LAD and prox mid circumflex, stent placed to RCA, LVEF 55%. Patient came to the emergency room with complaints of chest pain, shortness of breath, and anxiety. He did take 2 nitroglycerin sublingually with some relief in his chest pain. He reports today that he believes he was having an anxiety attack. The patient denies nausea, vomiting, orthopnea, PND, edema, heart palpitations, syncope, cough, wheezing, hematemesis, hemoptysis, melena. since admission on telemetry, his blood pressures been well controlled, heart rate in the 70s and noted a sinus rhythm from account solutions analyst and EKG. Chest x-ray revealed no acute cardiopulmonary process. Patient reports he did well through the night, denies chest pain and shortness of breath. Labs reviewed: Myoglobin 12, hematocrit 33, this mild anemia seems to be stable compared to lab home previous admissions. Sodium 125, potassium 4.4, BUN 20, creatinine 0.9, glucose 96. Cardiac biomarkers cycled and have remained negative. The patient has been held n.p.o. overnight and will undergo a left heart cath today by Dr. Latif. Risks of the procedure have been discussed with the patient. ASSESSMENT/PLAN: 1. CHEST PAIN - currently free of chest pain, plan for [facility] today. Cardiac biomarkers negative. 2. CAD - continue to monitor and continue medications. C 07/2015 revealed mild disease of LAD and prox mid circumflex, stent placed to RCA, LVEF 55%. 3. TOBACCO ABUSE - Merits of smoking cessation discussed and encouraged with patient. 4. ANXIETY - continue current plan of care, he is a patient at [facility]. 5. ANTICOAGULATION - chronic, has been off of Brilinta for some time. 6. HYPONATREMIA - chronic, psych meds? 7. DIABETES - ACCUCHECKS with SSI. Home Medications Medication Instructions Recorded Confirmed Type Atorvastatin [Lipitor] 40 mg PO BEDTIME 08/11/15 05/24/17 History Gabapentin 400 mg PO TID 08/11/15 05/24/17 History Lisinopril 20 mg PO QAM 08/11/15 05/24/17 History Metformin HCl 1,000 mg PO BID W/MEALS 08/11/15 05/24/17 History sitaGLIPtin [Januvia] 100 mg PO QAM 08/11/15 05/24/17 History QUEtiapine [SEROquel] 100 mg PO BEDTIME #90 tablet 02/09/17 05/24/17 Rx Buspirone HCl 10 mg PO TID 04/29/17 05/24/17 History Hydrocodone/Acetaminophen [[place] 1 each PO Q6H PRN 04/29/17 05/24/17 History 10-325 Tablet] Carvedilol [Carvedilol] 3.125 mg PO BID 05/24/17 05/24/17 History Insulin Detemir [Levemir] 20 units SUBCUT BEDTIME 05/24/17 05/24/17 History Nitroglycerin Sl Tab [Nitrostat] 0.4 mg SL Q5M PRN 05/24/17 05/24/17 History Omeprazole 20 mg PO DAILY PRN 05/24/17 05/24/17 History Sertraline HCl [Sertraline HCl] 150 mg PO QAM 05/24/17 05/24/17 History Tizanidine HCl [Tizanidine HCl] 2 mg PO BEDTIME 05/24/17 05/24/17 History Allergies Allergy/AdvReac Type Severity Reaction Status Date / Time codeine Allergy HIVES Verified 04/27/17 17:09 ketorolac [From Toradol] AdvReac Severe Flushing Verified 02/18/17 19:09 - Constitutional Constitutional: Present: daytime sleepiness. Absent: frequent falls, headache(s ), lethargy - EENT Nose, mouth and throat: Absent: dysphagia, epistaxis, headache(s) - Cardiovascular Cardiovascular: Present: chest pain at rest, dyspnea. Absent: diaphoresis, dyspnea on exertion, edema, lightheadedness, orthopnea, palpitations, PND - Respiratory Respiratory: Present: dyspnea. Absent: cough, hemoptysis, dyspnea on exertion, wheezing - Gastrointestinal Gastrointestinal: Absent: abdominal pain, change in bowel habits, coffee ground emesis, constipation, hematemesis, melena, nausea, vomiting - Genitourinary Genitourinary: Absent: difficulty urinating, dysuria, flank pain, hematuria - Neurological Neurological: Absent: abnormal gait, abnormal speech, behavioral changes - Psychiatric Psychiatric: Present: anxiety, panic attacks - Endocrine Endocrine: Absent: cold intolerance, fatigue - Hematologic/Lymphatic Hematologic/Lymphatic: Absent: easy bleeding Medical,Surgical,& Family Hx - Medical History Cardio: History of: CAD (Cardiac stent), Hypertension, [place] (stent placement x3), Cardiovascular Problems (stents) Psychological: History of: Anxiety Disorders, Depression, Previous Suicide Attempt, Psychiatric/Substance Abuse Tx No history of: Violent Behavior, Psychiatric Problems Comment Only: Behavior Problems ("I DON'T KNOW IF I HAVE OR NOT...") Neurology: No history of: Seizures Endocrine: History of: Diabetes Mellitus (IDDM), Diabetes Mellitus (NIDDM), Dyslipidemia Respiratory: History of: Bronchitis, COPD Genitourinary: History of: Prostate Problems (DIFFICULTY URINATING) Musculoskeletal: History of: Amputation (RIGHT AKA), Back/Neck Problems - Surgical History Cardiac Surgeries: Sugical HX of: Cardiac Catheterization (STENTS X3) Thoracic Surgeries: Patient denies;: Lobectomy Neurologic Surgeries: Patient denies: Neurologic Surgery Abdominal Surgeries: Surgical HX of: Appendectomy Orthopedic Surgeries: Surgical HX of;: Orthopedic Surgery (PLATE IN LEFT HIP 2010. Patient has right [id number] amputation) - Family History Family History: Reports;: Family Diabetes, Family Heart Disease - Social History Smoking Status: Current every day smoker Have you smoked in the last 12 months: Yes Time spent discussing smoking cessation with patient: 3 to 10 minutes Frequency of Alcohol Use: None Type of Drug Use: None Marital Status: Lives With:: Spouse Cardiology Physical Exam - Constitutional Vitals: Vital Signs Temp Pulse Resp BP Pulse Ox 97.7 F 73 18 99/47 93 L 05/25/17 04:09 05/25/17 04:09 05/25/17 04:09 05/25/17 04:09 05/25/17 04:09 Intake and Output 05/24/17 05/25/17 05/25/17 23:59 07:59 15:59 Intake Total 1000 / 1000 Balance 1000 / 1000 Intake: IV 1000 / 1000 Ns 1,000 ml @ 125 mls/hr 1000 / 1000 IV .Q8H MARK Rx#: [id number] Other: # Voids 1 Weight 148 lb 1.6 oz 148 lb 1.6 oz Patient Weight 05/25/17 23:59 Weight 148 lb 1.6 oz Exam: General: Appears well with no apparent distress. Pleasant and cooperative. Appears comfortable. HEENT: PERRL, normocephalic, atraumatic. Mucous membranes moist. No jaundice noted. Conjunctiva moist and clear, sclerae anicteric. Neck: No JVD/HJR, no thyromegaly or lymphadenopathy noted. No carotid bruit appreciated. Cardiac: Regular rate and rhythm. No murmur rub or gallop. PMI is nondisplaced. Lungs: Clear to auscultation without accessory muscle use to assist the respiratory pattern. No oxygen required. Abdomen: Soft, bowel sounds normoactive. Nontender and nondistended. No abdominal bruit or thrill noted. No masses noted. Musculoskeletal: No fluid collection. Full range of motion is noted. Right AKA amputation. Extremities: No clubbing, cyanosis noted. No edema noted. Upper extremity pulses 2+. Lower extremity pulses 2+. Capillary refill less than 3 seconds. Has a left AKA. Femoral pulses are 2+. Distal pulses are trace to 1+. Skin: Warm and dry. No unusual lesions or rashes. No skin breakdown appreciated. Neuro: Awake, alert and oriented 3. Moves all extremities well without hemiparesis or paralysis. No essential tremor is appreciated. Result/EKG - Labs CBC & BMP: 05/24/17 17:36 05/24/17 17:36 Lab Results: I have reviewed the past 24 hour labs Labs: Laboratory Results - last 24 hr 05/24/17 05/24/17 05/24/17 17:36 17:36 17:36 WBC 11.2 RBC 4.11 Hgb 12.0 L Hct 33.2 L MCV 80.8 L MCH 29 MCHC 36.1 H RDW 12.8 Plt Count 241 MPV 10.0 Neut % (Auto) 63.1 Lymph % (Auto) 24.3 [place] % (Auto) 9.5 Eos % (Auto) 1.9 Baso % (Auto) 0.8 Neut # (Auto) 7.1 Lymph # (Auto) 2.7 [place] # (Auto) 1.1 H Eos # (Auto) 0.2 Baso # (Auto) 0.1 Immature Gran % 0.4 Nucleated RBC % 0.0 Immature Gran # 0.05 Nucleated RBCs # 0.00 Immature Plt Fraction 0.0 INR 1.0 PT Patient/Control Mix 10.7 Circ Anticoag PTT 31.0 Sodium 125 L Potassium 4.4 Chloride 92 L Carbon Dioxide 23 Anion Gap 14.4 BUN 20 H Creatinine 0.90 GFR Calculation 97 BUN/Creatinine Ratio 22.00 H Glucose 96 POC Glucose Calculated Osmolality 253.5 L Calcium 9.2 Troponin I < 0.015 05/24/17 05/24/17 05/24/17 20:19 21:22 23:49 WBC RBC Hgb Hct MCV MCH MCHC RDW Plt Count MPV Neut % (Auto) Lymph % (Auto) [place] % (Auto) Eos % (Auto) Baso % (Auto) Neut # (Auto) Lymph # (Auto) [place] # (Auto) Eos # (Auto) Baso # (Auto) Immature Gran % Nucleated RBC % Immature Gran # Nucleated RBCs # Immature Plt Fraction INR PT Patient/Control Mix Circ Anticoag PTT Sodium Potassium Chloride Carbon Dioxide Anion Gap BUN Creatinine GFR Calculation BUN/Creatinine Ratio Glucose POC Glucose 111 H Calculated Osmolality Calcium Troponin I < 0.015 0.016 - Diagnostic Findings Procedure: Chest x-ray: report reviewed by me - EKG EKG results: interpreted by me, sinus rhythm I, Jian Latif MD, personally performed the services described in this documentation, ascribed by Shanna Fernandez NP in my presence, and it is both accurate and complete .
[2017-05-25] MEDS ORDERED: HEPARIN 5,000 UNIT/1 ML VIAL ONE (10:24)
[2017-05-25] MEDS: INSULIN LISPRO 100 UNIT/ML SUBCUT SCH ×4 (11:07→21:49)
--- NOTE | 2017-05-25 11:31 | Operative Note ---
Date of procedure: 05/25/17 Procedure Preformed: Left heart cath--via the right brachial artery-I cannot access the right or left femoral artery Coronary angiography Left ventriculography Supravalvular aortography manual hold of the left femoral artery puncture site, the right femoral artery , and the right brachial artery-successful hemostasis Surgeon / Physician: Jian Latif Dust Box Tender: Rao Deleon Post-op diagnosis: same (Progressive chest pain, known CAD, prior coronary stents, smoker, anxiety, chronic pain) Findings: Impression: No significant critical coronary disease Widely patent coronary stents The tightest areas would be in the right coronary prior to a PDA with there is a 50-6% narrowing. There are other mild to moderate areas of disease Mild global left ventricle systolic dysfunction, LVEF 50% Moderate elevation of LVEDP, 20-25 mmHg Mildly ectatic aortic root without significant regurgitation, follow-through to the distal aorta suggested it is occluded in the iliacs on the left and may be slightly higher on the right. Manual hold of the right brachial artery, left femoral artery culture site, and right femoral artery puncture site. Plan/recommendations: The patient will have risk factors optimized. The patient will be on antiplatelet medications to include aspirin indefinitely and Plavix or Brilinta for at least a year. Follow-up will be scheduled. Addenda: I saw the patient post-cath. the groin puncture site and distal pulse are stable. vital signs are stable and the patient will be observed closely overnight. Specimens: none sent Estimated blood loss: minimal Condition: stable Anesthesia: local, conscious sedation Disposition: floor
--- NOTE | 2017-05-25 13:30 | EKG Report ---
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
[2017-05-25] MEDS: busPIRone 10 MG TABLET PO SCH ×2 (14:40→21:33)
[2017-05-25] MEDS: GABAPENTIN 400 MG CAPSULE PO SCH ×2 (14:40→21:33)
[2017-05-25] MEDS ORDERED: LISINOPRIL 20 MG TABLET PO SCH (16:08)
[2017-05-25] MEDS ORDERED: LISINOPRIL 20 MG TABLET PO ONE (16:15)
[2017-05-25] MEDS ORDERED: metFORMIN 500 MG TABLET PO SCH (17:00)
--- NOTE | 2017-05-25 19:21 | Cardiology Operative Report ---
Date of Procedure:: 05/25/17 Post-op diagnosis: same (Progressive chest pain, known CAD, prior coronary stents, smoker, anxiety, chronic pain) Procedure: Initialization Date: 05/25/17 11:24 Date of procedure: 05/25/17 Procedure Preformed: Left heart cath--via the right brachial artery-I cannot access the right or left femoral artery Coronary angiography Left ventriculography Supravalvular aortography manual hold of the left femoral artery puncture site, the right femoral artery , and the right brachial artery-successful hemostasis Surgeon / Physician: Jian Latif Life Skills Educator: Rao Deleon Post-op diagnosis: same (Progressive chest pain, known CAD, prior coronary stents, smoker, anxiety, chronic pain) procedure: The patient was prepped and draped in usual manner. I could not enter the right femoral artery. A trial of the left femoral artery. I entered it but he came to the point of occlusion. I then removed this may state she can help pressure. I then went to the right brachial artery. I entered using the mini stick sheath and then used a long sheath. It required a Adriano wire to get into the central part area from the periphery. There was some tortuosities in the innominate or neck arteries. I used a sheath and then used a JL4 and engaged left coronary. Multiple views were taken of the left coronary. I then exchanged for a JR4. Multiple views of the right coronary were taken. I then exchanged for an angled pigtail. I crossed the valve. Left ventricular end- diastolic pressures measured. Left ventriculography was done. Left ventricle pullback was done. The catheters were then removed from the patient. Angiogram of the right femoral artery was done either from the follow-through from the LV gram or a separate injection in the right femoral artery. Angio- Seal was done and it was successful. Please see the cath data sheets for the details of catheters used. Complications: None Hemodynamic data: LVEDP was 20 - 25 mmHg. Angiographic data: The left main coronary was large and had 40% distal, smooth narrowing. The left anterior descending artery was large and had a diagonal septal popped corn oven attendant. There were minimal luminal irregularities in this vessel. The left circumflex system was moderate to large and had a small obtuse marginal and a large post lateral branch. There is an ostial 20% narrowing. Otherwise there are minimal luminal irregularities in the circumflex. The right coronary artery was large in size, dominant vessel with the PDA. At the site of the stent in the proximal right coronary, there is no significant narrowing. Just prior to the PDA, there was a 40% eccentric narrowing. More proximal to that area was a 40-50% narrowing. In one view it appeared to be slightly more narrowed, but it may be a Mach effect. The midportion of the PDA had a 50% narrowing. There is a small vessel at that point. STARK left ventriculography revealed near normal global/regional left ventricular systolic function. Overall ejection fraction was at least 50%. There is no significant mitral regurgitation. Angiogram of the right femoral artery revealed the puncture site to be in a large vessel, above the bifurcation. It was suitable for Angio-Seal. Impression: No significant critical coronary disease Widely patent coronary stents The tightest areas would be in the right coronary prior to a PDA with there is a 50-60% narrowing. There are other mild to moderate areas of disease Mild global left ventricle systolic dysfunction, LVEF 50% Moderate elevation of LVEDP, 20-25 mmHg Mildly ectatic aortic root without significant regurgitation, follow-through to the distal aorta suggested it is occluded in the iliacs --on the left and may be slightly higher on the right. Manual hold of the right brachial artery, left femoral artery puncture site, and right femoral artery puncture site. Plan/recommendations: The angiogram does not show a cardiac/coronary explanation for his chest pain. I will reassure the patient. It could be anxiety related could be GI or muscle skeletal. Will treat for all 3 of these. The patient will have risk factors optimized. The patient will be on antiplatelet medications to include aspirin indefinitely and Plavix or Brilinta for at least a year. Follow-up will be scheduled. Addenda: I saw the patient post-cath. the groin puncture site and distal pulse are stable. vital signs are stable and the patient will be observed closely overnight. Specimens: none sent Estimated blood loss: minimal Condition: stable Anesthesia: local, conscious sedation Disposition: floor Anesthesia: local, minimal conscious sedation Surgeon / Physician: Jian Latif Life Skills Educator: other Estimated blood loss: minimal Specimens: none sent Condition: stable Disposition: floor
[2017-05-25] MEDS ORDERED: ATORVASTATIN 40 MG TABLET PO SCH (21:00)
[2017-05-25] MEDS ORDERED: INSULIN GLARGINE 100 UNIT/ML SUBCUT SCH (21:00)
[2017-05-25] MEDS ORDERED: QUEtiapine 100 MG TABLET PO SCH (21:00)
[2017-05-25] MEDS ORDERED: tiZANidine 4 MG TABLET PO SCH (21:00)
[2017-05-25] MEDS: CARVEDILOL 3.125 MG TABLET PO SCH (21:34)
[2017-05-26 05:19] LABS: Basophils # 0.1 10*3/uL (0.0-0.2); Basophils % 0.7 % (0.0-0.8); Eosinophils # 0.3 10*3/uL (0.0-0.87); Eosinophils % 2.7 % (0.00-10.9); Hematocrit 27.3 VOL% (42.0-52.0); Immature Granulocytes % 0.7 %; Immature Granulocytes Absolute 0.08 #; Lymphocytes # 2.4 10*3/uL (1.4-4.0); Lymphocytes % 20.6 % (21.2-54.2); Mean Corpuscular HGB Conc 34.4 GM/DL (32-36); Mean Corpuscular Hemoglobin 29 PG (27-34); Mean Corpuscular Volume 83.5 FL (87-102); Mean Platelet Volume 10.4 FL (9.6-12.0); Monocytes # 0.9 10*3/uL (0.11-0.8); Monocytes % 7.5 % (1.7-12.7); Neutrophils % 67.8 % (38.7-73.9); Platelet Count 214 T/CUMM (130-400); Red Cell Distribution Width 13.1 % (9.3-17.3); White Blood Count 11.8 T/CUMM (4-12)
[2017-05-26 05:34] LABS: Hemoglobin 9.4 GM/DL (14.0-18.0); Red Blood Count 3.27 MC/CUMM (3.8-5.5)
[2017-05-26 05:52] LABS: Calcium 8.4 MG/DL (8.5-10.1); Magnesium 1.5 MG/DL (1.8-2.4); Osmolality,Calculated 270.4 MOS/KG (273-304); Potassium 4.6 MMOL/L (3.5-5.1)
[2017-05-26 05:54] LABS: Calcium 8.4 MG/DL (8.5-10.1); Osmolality,Calculated 272.2 MOS/KG (273-304); Potassium 4.6 MMOL/L (3.5-5.1)
--- NOTE | 2017-05-26 07:25 | EKG Report ---
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
[2017-05-26 08:11] VITALS: BP 100/56
[2017-05-26] MEDS: CARVEDILOL 3.125 MG TABLET PO SCH (08:17)
[2017-05-26] MEDS: GABAPENTIN 400 MG CAPSULE PO SCH (08:17)
[2017-05-26] MEDS: busPIRone 10 MG TABLET PO SCH (08:21)
[2017-05-26] MEDS: INSULIN LISPRO 100 UNIT/ML SUBCUT SCH (08:25)
[2017-05-26] MEDS ORDERED: SERTRALINE 50 MG TABLET PO SCH (09:00)
[2017-05-26] MEDS ORDERED: LISINOPRIL 20 MG TABLET PO SCH (09:00)
[2017-05-26] MEDS ORDERED: sitaGLIPtin 100 MG TABLET PO SCH (09:00)
[2017-05-26] MEDS ORDERED: ASPIRIN CHEW 81 MG TABLET PO SCH (09:00)
[2017-05-26] MEDS ORDERED: PANTOPRAZOLE 40 MG TABLET PO SCH (09:00)
--- NOTE | 2017-05-26 12:50 | Discharge Summary ---
Jim Caldwell Lesley, BENJAMIN, am scribing for, and in the presence of, Leela Guzman NP 12:50. Hospital Course - Hospital Course Hospital Course: RESEARCH AND INSIGHTS EXECUTIVE: Dr. Latif Summary: Mr. Luna is a 66 year old male, seen by Dr. Latif in clinic 05/20/2017 and planned for heart cath this week. The patient came in through the emergency room yesterday with complaints of chest pain, anxiety, and shortness of breath. The patient reported that he took 2 sublingual nitroglycerin with some relief in pain. The patient was admitted and underwent LHC on 05/25/17. Cardiac biomarkers remained negative. The cath revealed no significant critical coronary artery disease, and widely patent coronary stents. Mild global left ventricle systolic dysfunction, LVEF 50% with moderate elevation of LVEDP, 20- 25 mmHg, mildly ectatic aortic root without significant regurgitation, follow- through to the distal aorta suggested it is occluded in the iliacs --on the left and may be slightly higher on the right. The right coronary prior to PDA with 50-60% narrowing, there are other mild to moderate areas of disease. Cath attempted unsuccessfully and bilateral groins, follow-through to the distal aorta suggested occluded bilateral iliacs. Will set up outpatient workup with Dr. Macias for this issue. Bilateral groins assessed today, site soft without hematoma, no bruit auscultated, dressings removed, pedal pulse palpable on the left, AKA on the right. Right brachial artery site soft, small hematoma noted under the skin, no bruit auscultated, brachial and radial pulse palpable. Labs reviewed: Hemoglobin 9.4 hematocrit 27.3, this anemia seems to be stable compared to lab from previous admissions. Will set outpatient workup with gastroenterology for anemia due to his chronic anticoagulation therapy. Discuss the importance of smoking cessation with the patient and his spouse this morning prior to discharge. Will offer local smoking cessation program if available upon discharge, as the patient expressed a financial barrier to getting smoking cessation aids/meds. DISCHARGE MEDICATIONS: Aspirin 81 mg daily Januvia 100 mg p.o. every morning Metformin 1000 mg p.o. twice daily Nitroglycerin sublingual tabs as needed Monopril 20 mg p.o. every morning Carvedilol 3.125 mg p.o. twice daily Lipitor 40 mg p.o. nightly Brilinta 90 mg p.o. twice daily Mag-Ox twice daily - Time spent with patient Time with patient DS: Less than 30 minutes (record review, assessment, and documentation) Time spent discussing smoking cessation with patient: 3 to 10 minutes Diagnosis - Discharge Diagnosis (1) Chest pain Status: Resolved (2) Coronary artery disease Status: Chronic (3) Diabetes mellitus Status: Chronic (4) Nicotine addiction Status: Chronic (5) Anxiety Status: Chronic (6) High risk medication use Status: Chronic (7) Hyponatremia Status: Chronic (8) Hypomagnesemia Status: Chronic (9) Hypertension Status: Chronic (10) Dyslipidemia Status: Chronic Specialty Discharge - Follow Up or Referrals Follow up with: Jian Latif MD [Physician] - 06/08/17 1:30 pm (cbc, bmp with mag, and EKG prior to appointment) Darío Macias MD [Physician] - (PAD workup, suspected occluded bilateral iliac arteries s/p recent heart catheterization. First available appointment) Riley Landeros MD [Physician] - (anemia workup, pt. on anticoagulants chronically First available appointment) Discharge Plan - Discharge Data Disposition: Disch To Home/Self Care Condition at Discharge: Stable Discharge Diet: heart healthy Activity: resume usual activities as tolerated (post cath instructions) Hygiene: may shower Weight Bearing at Discharge: full weight bearing, other (use right arm as little as possible for 2 days) Driving: no restrictions Contact your physician if you experience:: fever over 101, Redness or swelling, Bleeding Wound / Dressing Care Instructions: post cath instructions - Discharge Medications New Carvedilol [Coreg] 3.125 mg PO BID tablet Magnesium Oxide [Magox 400] 400 mg PO BID #60 tablet Sertraline [Zoloft] 150 mg PO QAM tablet Ticagrelor [Brilinta] 90 mg PO BID #60 tablet Aspirin Chew Tab 81 mg PO DAILY #30 tablet Continue Atorvastatin [Lipitor] 40 mg PO BEDTIME Lisinopril 20 mg PO QAM sitaGLIPtin [Januvia] 100 mg PO QAM Metformin HCl 1,000 mg PO BID W/MEALS Gabapentin 400 mg PO TID Buspirone HCl 10 mg PO TID Hydrocodone/Acetaminophen [[place] 10-325 Tablet] 1 each PO Q6H PRN PRN Reason: Pain Nitroglycerin Sl Tab [Nitrostat] 0.4 mg SL Q5M PRN PRN Reason: Chest Pain Carvedilol 3.125 mg PO BID Tizanidine HCl 2 mg PO BEDTIME Insulin Detemir [Levemir] 20 units SUBCUT BEDTIME QUEtiapine [SEROquel] 100 mg PO BEDTIME #90 tablet Omeprazole 20 mg PO DAILY PRN PRN Reason: GERD Discontinued Sertraline HCl [Sertraline HCl] 150 mg PO QAM - Follow Up or Referral Follow Up: Jian Latif MD [Physician] - 06/08/17 1:30 pm (cbc, bmp with mag, and EKG prior to appointment) Darío Macias MD [Physician] - (PAD workup, suspected occluded bilateral iliac arteries s/p recent heart catheterization. First available appointment) Riley Landeros MD [Physician] - (anemia workup, pt. on anticoagulants chronically First available appointment) - Forms/Instructions Instructions: Left Heart Catheterization (DC) Exam - Constitutional Vitals: Period Temp Pulse Resp BP Sys/Buchanan Pulse Ox Last 24 Hr 97 F-98.0 F 61-79 18-20 94-179/53-92 93-97 Exam: General: Appears well with no apparent distress. Pleasant and cooperative. Appears comfortable. HEENT: PERRL, normocephalic, atraumatic. Mucous membranes moist. No jaundice noted. Conjunctiva moist and clear, sclerae anicteric. Neck: No JVD/HJR, no thyromegaly or lymphadenopathy noted. No carotid bruit appreciated. Cardiac: Regular rate and rhythm. No murmur rub or gallop. Lungs: Clear to auscultation without accessory muscle use to assist the respiratory pattern. No oxygen required. Abdomen: Soft, bowel sounds normoactive. Nontender and nondistended. No abdominal bruit or thrill noted. No masses noted. Musculoskeletal: No fluid collection. Full range of motion is noted. Extremities: No clubbing, cyanosis noted. No edema noted. Upper extremity pulses 2+. Lower extremity pulses 2+. Capillary refill less than 3 seconds. Right brachial soft, small hematoma noted and marked. Pulse 2+. Skin: No unusual lesions or rashes. No skin breakdown appreciated. Neuro: Awake, alert and oriented 3. Moves all extremities well without hemiparesis or paralysis. No essential tremor is appreciated. Discharge Results Labs on day of discharge: Labs from last 24 hours 05/26/17 05/26/17 05/26/17 07:40 04:31 04:31 WBC RBC Hgb Hct MCV MCH MCHC RDW Plt Count MPV Neut % (Auto) Lymph % (Auto) [place] % (Auto) Eos % (Auto) Baso % (Auto) Neut # (Auto) Lymph # (Auto) [place] # (Auto) Eos # (Auto) Baso # (Auto) Immature Gran % Nucleated RBC % Immature Gran # Nucleated RBCs # Immature Plt Fraction Sodium 134 L 133 L Potassium 4.6 4.6 Chloride 102 102 Carbon Dioxide 24 25 Anion Gap 12.6 10.6 BUN 17 17 Creatinine 0.80 0.80 GFR Calculation 102 102 BUN/Creatinine Ratio 21.00 H 21.00 H Glucose 146 H 148 H POC Glucose 129 H Calculated Osmolality 272.2 L 270.4 L Calcium 8.4 L 8.4 L Magnesium 1.5 L 05/26/17 05/25/17 05/25/17 04:31 20:38 17:09 WBC 11.8 RBC 3.27 L D Hgb 9.4 L D Hct 27.3 L MCV 83.5 L MCH 29 MCHC 34.4 RDW 13.1 Plt Count 214 MPV 10.4 Neut % (Auto) 67.8 Lymph % (Auto) 20.6 L [place] % (Auto) 7.5 Eos % (Auto) 2.7 Baso % (Auto) 0.7 Neut # (Auto) 8.0 H Lymph # (Auto) 2.4 [place] # (Auto) 0.9 H Eos # (Auto) 0.3 Baso # (Auto) 0.1 Immature Gran % 0.7 Nucleated RBC % 0.0 Immature Gran # 0.08 Nucleated RBCs # 0.00 Immature Plt Fraction 0.0 Sodium Potassium Chloride Carbon Dioxide Anion Gap BUN Creatinine GFR Calculation BUN/Creatinine Ratio Glucose POC Glucose 213 H 123 H Calculated Osmolality Calcium Magnesium DS: Provider Consults: 05/25/17 05:47 Consult to Pastoral Services [CONS] Routine Comment: Pastoral Screen: Request Metal Sheet Roller Operator Visit Pastoral Screen Source of Request: Patient Expected date of discharge: 05/26/17 Thomas Caldwell Bonnie E, NP, personally performed the services described in this documentation, ascribed by Vincent,Shanna, LINUX DEVOPS ENGINEER in my presence, and it is both accurate and complete 250 .
== END 2017-05-26 11:25 | disposition home or self-care (01) ==
LOC: EDBD → EDUNIT# → N.EDINP 16:36 → N.ED 16:36 → N.EDINP 19:27 → N.TELEN 19:55
PROVIDERS: ADMIT Internal Medicine Cardiovascular Disease; ATTEND Internal Medicine Cardiovascular Disease
PROC: CLCCHCL (ICD-10-PCS; 2017-05-25 10:45)

== ENCOUNTER 2017-10-01 11:44 | Inpatient (IN) ==
[2017-10-01] MEDS ORDERED: NICOTINE 21 MG/24 HR PATCH TRANSDERM ONE (14:14)
[2017-10-01] MEDS ORDERED: hydrOXYzine HCL 25 MG/1 ML VIAL IM ONE (14:15)
[2017-10-01] MEDS ORDERED: HydrOXYzine PAMOATE 25 MG CAPSULE ONE ×2 (14:59→15:04)
[2017-10-01 15:04] LABS: Basophils # 0.1 10*3/uL (0.0-0.2); Basophils % 0.9 % (0.0-0.8); Eosinophils # 0.3 10*3/uL (0.0-0.87); Hemoglobin 12.8 GM/DL (14.0-18.0); Immature Granulocytes % 0.7 %; Immature Granulocytes Absolute 0.07 #; Lymphocytes % 20.4 % (21.2-54.2); Mean Corpuscular HGB Conc 32.8 GM/DL (32-36); Mean Corpuscular Hemoglobin 28 PG (27-34); Mean Corpuscular Volume 84.8 FL (87-102); Mean Platelet Volume 10.6 FL (9.6-12.0); Monocytes # 0.7 10*3/uL (0.11-0.8); Monocytes % 7.6 % (1.7-12.7); Neutrophils # 6.6 10*3/uL (1.4-7.4); Neutrophils % 67.4 % (38.7-73.9); Platelet Count 187 T/CUMM (130-400); Red Cell Distribution Width 14.6 % (9.3-17.3); White Blood Count 9.7 T/CUMM (4-12)
[2017-10-01 15:15] LABS: Alanine Aminotransferase 32 U/L (16-61); Albumin 3.8 G/DL (3.4-5.0); Alkaline Phosphatase 44 U/L (45-117); Aspartate Amino Transferase 19 U/L (0-37); Bilirubin,Total < 0.39 MG/DL (0.2-1.0); Blood Urea Nitrogen 12 MG/DL (7-18); Calcium 9.1 MG/DL (8.5-10.1); Glucose 102 MG/DL (74-106); Magnesium 1.8 MG/DL (1.8-2.4); Osmolality,Calculated 265.4 MOS/KG (273-304); Sodium 133 MMOL/L (136-145); Total Protein 7.2 G/DL (6.4-8.3); Troponin I Only < 0.015 NG/ML (0.00-0.045)
[2017-10-01 16:33] LABS: Apearance,Urine Slightly Hazy (Clear); Bilirubin,Urine Negative (Negative); Blood, Urine Negative (Negative); Glucose,Urine (UA) Negative (Negative); Ketones,Urine Negative (Negative); Nitrite,Urine Positive (Negative); Protein,Urine Negative; RBC,Urine <1 /HPF (0-4); Squamous Epithelial Cell,Urine Few /HPF (0-10); Urine Color Yellow (Yellow); Urine Urobilinogen < 2.0 EU/DL (0.2-1.0); WBC,Urine 3 /HPF (0-6)
[2017-10-01 16:34] LABS: Bacteria,Urine Many /HPF (Few); Mucus,Urine Few /LPF (Occasional)
[2017-10-01 16:39] LABS: Barbiturates Screen,Urine Negative (Negative); Benzodiazepines Screen,Urine Negative (Negative); Cannabinoid Screen,Urine Negative (Negative); Opiate Screen,Urine Positive (Negative); Phencyclidine Screen,Urine Negative (Negative)
[2017-10-01] MEDS ORDERED: ONDANSETRON 4 MG/2 ML VIAL IV PRN (18:18)
[2017-10-01] MEDS: cephALEXin 500 MG CAPSULE PO SCH (20:46)
[2017-10-01] MEDS: SERTRALINE 100 MG TABLET PO SCH (20:46)
[2017-10-01] MEDS: CARVEDILOL 3.125 MG TABLET PO SCH (20:47)
[2017-10-01] MEDS: hydrOXYzine HCL 25 MG/1 ML VIAL IM PRN (21:08)
[2017-10-01] MEDS: SODIUM CHLORIDE 0.9% 1,000 ML IV SCH (22:00)
[2017-10-01] MEDS: CLORAZEPATE 3.75 MG TABLET PO PRN (23:05)
[2017-10-02] MEDS: hydrOXYzine HCL 25 MG/1 ML VIAL IM PRN (03:37)
[2017-10-02 05:51] LABS: Basophils # 0.1 10*3/uL (0.0-0.2); Basophils % 1.1 % (0.0-0.8); Eosinophils # 0.3 10*3/uL (0.0-0.87); Eosinophils % 3.3 % (0.00-10.9); Hematocrit 34.8 VOL% (42.0-52.0); Hemoglobin 11.4 GM/DL (14.0-18.0); Immature Granulocytes % 0.5 %; Immature Granulocytes Absolute 0.05 #; Lymphocytes % 21.3 % (21.2-54.2); Mean Corpuscular HGB Conc 32.8 GM/DL (32-36); Mean Corpuscular Hemoglobin 28 PG (27-34); Mean Corpuscular Volume 85.1 FL (87-102); Mean Platelet Volume 11.7 FL (9.6-12.0); Monocytes # 0.8 10*3/uL (0.11-0.8); Monocytes % 8.9 % (1.7-12.7); Neutrophils # 6.1 10*3/uL (1.4-7.4); Neutrophils % 64.9 % (38.7-73.9); Platelet Count 174 T/CUMM (130-400); Red Blood Count 4.09 MC/CUMM (3.8-5.5); Red Cell Distribution Width 14.5 % (9.3-17.3); White Blood Count 9.4 T/CUMM (4-12)
[2017-10-02 06:27] LABS: Calcium 8.6 MG/DL (8.5-10.1); Magnesium 1.7 MG/DL (1.8-2.4); Osmolality,Calculated 273.4 MOS/KG (273-304); Potassium 4.3 MMOL/L (3.5-5.1)
[2017-10-02] MEDS ORDERED: ALBUTEROL 2.5 MG/3 ML NEB RESP TX PRN (08:10)
[2017-10-02] MEDS ORDERED: NITROGLYCERIN SL 0.4 MG TABLET SL PRN (08:10)
[2017-10-02] MEDS: cephALEXin 500 MG CAPSULE PO SCH ×2 (08:50→20:02)
[2017-10-02] MEDS: INSULIN REGULAR 100 UNIT/ML SUBCUT SCH ×2 (08:50→20:08)
[2017-10-02] MEDS: MAGNESIUM OXIDE 400 MG TABLET PO SCH ×2 (08:50→20:02)
[2017-10-02] MEDS: MULTIVITAMIN (CENTRUM) TABLET PO SCH (08:50)
[2017-10-02] MEDS: ASPIRIN CHEW 81 MG TABLET PO SCH (08:51)
[2017-10-02] MEDS: GABAPENTIN 600 MG TABLET PO SCH ×2 (08:51→20:02)
[2017-10-02] MEDS: PANTOPRAZOLE 40 MG TABLET PO SCH (08:51)
[2017-10-02] MEDS: LISINOPRIL 5 MG TABLET PO SCH (08:51)
[2017-10-02] MEDS: CARVEDILOL 3.125 MG TABLET PO SCH ×2 (08:51→20:02)
[2017-10-02] MEDS: SODIUM CHLORIDE 0.9% 1,000 ML IV SCH ×3 (08:52→23:46)
[2017-10-02] MEDS ORDERED: TICAGRELOR 60 MG PO SCH (09:00)
[2017-10-02] MEDS ORDERED: INFLUENZA VIRUS VACCINE 0.5 ML SYRINGE IM ONE (09:00)
[2017-10-02] MEDS ORDERED: PNEUMOCOCCAL VACCINE (13 VALENT) 0.5 ML SYRINGE IM ONE (09:00)
[2017-10-02] MEDS ORDERED: PANTOPRAZOLE 40 MG TABLET PO SCH (09:00)
[2017-10-02] MEDS: metFORMIN 500 MG TABLET PO SCH (16:49)
[2017-10-02] MEDS: SERTRALINE 100 MG TABLET PO SCH (20:02)
[2017-10-02] MEDS ORDERED: ATORVASTATIN 40 MG TABLET PO SCH (21:00)
[2017-10-03] MEDS: ASPIRIN CHEW 81 MG TABLET PO SCH (08:10)
[2017-10-03] MEDS: MULTIVITAMIN (CENTRUM) TABLET PO SCH (08:10)
[2017-10-03] MEDS: GABAPENTIN 600 MG TABLET PO SCH (08:10)
[2017-10-03] MEDS: metFORMIN 500 MG TABLET PO SCH (08:10)
[2017-10-03] MEDS: MAGNESIUM OXIDE 400 MG TABLET PO SCH (08:10)
[2017-10-03] MEDS: cephALEXin 500 MG CAPSULE PO SCH (08:10)
[2017-10-03] MEDS: LISINOPRIL 5 MG TABLET PO SCH (08:11)
[2017-10-03] MEDS: PANTOPRAZOLE 40 MG TABLET PO SCH (08:11)
[2017-10-03] MEDS: CARVEDILOL 3.125 MG TABLET PO SCH (08:11)
[2017-10-03] MEDS: CLORAZEPATE 3.75 MG TABLET PO PRN (09:51)
[2017-10-03] MEDS: INSULIN REGULAR 100 UNIT/ML SUBCUT SCH (09:58)
[2017-10-03] MEDS ORDERED: MAGNESIUM CITRATE 300 ML BOTTLE PO ONE (11:27)
[2017-10-03 15:28] VITALS: BP 130/72
== END 2017-10-03 15:20 | DRG 880 ==
LOC: EDBD → EDUNIT# → N.ED 11:44 → N.EDINP 18:00 → N.CC 18:09
PROVIDERS: ADMIT Internal Medicine; ATTEND Internal Medicine

== ENCOUNTER 2017-11-30 08:12 | Observation (INO) ==
[2017-11-30] MEDS ORDERED: CHARCOAL AQUEOUS 25 GM/120 ML BOTTLE ONE (08:29)
[2017-11-30] MEDS ORDERED: CHARCOAL AQUEOUS 25 GM/120 ML BOTTLE PO STA (08:30)
[2017-11-30 08:53] LABS: Basophils # 0.1 10*3/uL (0.0-0.2); Eosinophils # 0.4 10*3/uL (0.0-0.87); Hematocrit 35.8 VOL% (42.0-52.0); Immature Granulocytes % 0.4 %; Immature Granulocytes Absolute 0.04 #; Lymphocytes # 1.4 10*3/uL (1.4-4.0); Lymphocytes % 15.3 % (21.2-54.2); Mean Corpuscular HGB Conc 33.5 GM/DL (32-36); Mean Corpuscular Hemoglobin 28 PG (27-34); Mean Corpuscular Volume 84.2 FL (87-102); Mean Platelet Volume 11.1 FL (9.6-12.0); Monocytes # 0.7 10*3/uL (0.11-0.8); Monocytes % 7.3 % (1.7-12.7); Neutrophils # 6.6 10*3/uL (1.4-7.4); Platelet Count 169 T/CUMM (130-400); Red Blood Count 4.25 MC/CUMM (3.8-5.5); Red Cell Distribution Width 13.2 % (9.3-17.3); White Blood Count 9.2 T/CUMM (4-12)
[2017-11-30] MEDS ORDERED: SODIUM CHLORIDE 0.9% 1,000 ML IV STA (08:57)
[2017-11-30 09:24] LABS: Alanine Aminotransferase 28 U/L (16-61); Albumin 3.7 G/DL (3.4-5.0); Alkaline Phosphatase 54 U/L (45-117); Aspartate Amino Transferase 18 U/L (0-37); Bilirubin,Total < 0.39 MG/DL (0.2-1.0); Blood Urea Nitrogen 23 MG/DL (7-18); Calcium 9.1 MG/DL (8.5-10.1); Glucose 168 MG/DL (74-106); Osmolality,Calculated 277.1 MOS/KG (273-304); Sodium 135 MMOL/L (136-145); Total Protein 7.3 G/DL (6.4-8.3)
[2017-11-30 10:59] LABS: Barbiturates Screen,Urine Negative (Negative); Benzodiazepines Screen,Urine Negative (Negative); Cannabinoid Screen,Urine Negative (Negative); Opiate Screen,Urine Positive (Negative); Phencyclidine Screen,Urine Negative (Negative)
[2017-11-30] MEDS ORDERED: ONDANSETRON 4 MG/2 ML VIAL IV PRN (12:06)
[2017-11-30] MEDS ORDERED: DEXTROSE 50% 25 GM/50 ML VIAL IV PRN (12:06)
[2017-11-30] MEDS ORDERED: GLUCAGON 1 MG VIAL IM PRN (12:06)
[2017-11-30] MEDS ORDERED: SODIUM CHLORIDE 0.9% 1,000 ML IV SCH (12:30)
[2017-11-30] MEDS: SODIUM CHLORIDE 0.9% 1,000 ML IV SCH ×2 (12:55→17:01)
[2017-11-30] MEDS ORDERED: ALBUTEROL 2.5 MG/3 ML NEB RESP TX PRN (13:00)
[2017-11-30] MEDS ORDERED: NIFEdipine 10 MG CAPSULE PO PRN (16:33)
[2017-11-30] MEDS: INSULIN LISPRO 100 UNIT/ML SUBCUT SCH ×3 (18:49→21:38)
[2017-11-30] MEDS: sitaGLIPtin 100 MG TABLET PO SCH (18:53)
[2017-11-30] MEDS ORDERED: POLYETHYLENE GLYCOL POWDER 17 GM PACK PO ONE (18:57)
[2017-11-30] MEDS: NICOTINE 21 MG/24 HR PATCH TRANSDERM SCH (19:39)
[2017-11-30] MEDS ORDERED: Ticagrelor [Brilinta] 60 MG PO SCH (21:00)
[2017-11-30] MEDS ORDERED: SERTRALINE 100 MG TABLET PO SCH (21:00)
[2017-11-30] MEDS ORDERED: traZODone 50 MG TABLET PO SCH (21:00)
[2017-11-30] MEDS ORDERED: ATORVASTATIN 40 MG TABLET PO SCH (21:00)
[2017-11-30] MEDS: MAGNESIUM OXIDE 400 MG TABLET PO SCH (21:26)
[2017-11-30] MEDS: GABAPENTIN 600 MG TABLET PO SCH (21:26)
[2017-12-01] MEDS ORDERED: tiZANidine 4 MG TABLET PO PRN (00:36)
[2017-12-01 06:24] LABS: Albumin 3.5 G/DL (3.4-5.0); Bilirubin,Total 0.4 MG/DL (0.2-1.0); Calcium 8.9 MG/DL (8.5-10.1); Osmolality,Calculated 287.1 MOS/KG (273-304); Total Protein 6.8 G/DL (6.4-8.3)
[2017-12-01] MEDS: INSULIN LISPRO 100 UNIT/ML SUBCUT SCH ×2 (08:56→12:13)
[2017-12-01] MEDS: GABAPENTIN 600 MG TABLET PO SCH ×2 (08:58→15:22)
[2017-12-01] MEDS: NICOTINE 21 MG/24 HR PATCH TRANSDERM SCH (08:58)
[2017-12-01] MEDS: sitaGLIPtin 100 MG TABLET PO SCH (08:58)
[2017-12-01] MEDS: MAGNESIUM OXIDE 400 MG TABLET PO SCH (08:58)
[2017-12-01] MEDS ORDERED: ASPIRIN CHEW 81 MG TABLET PO SCH (09:00)
[2017-12-01] MEDS ORDERED: MULTIVITAMIN (CENTRUM) TABLET PO SCH (09:00)
[2017-12-01] MEDS ORDERED: PANTOPRAZOLE 40 MG TABLET PO SCH (09:00)
[2017-12-01] MEDS ORDERED: LISINOPRIL 5 MG TABLET PO SCH (09:00)
[2017-12-01] MEDS ORDERED: POLYETHYLENE GLYCOL POWDER 17 GM PACK PO SCH (09:00)
[2017-12-01] MEDS ORDERED: CLORAZEPATE 3.75 MG TABLET PO PRN (09:19)
[2017-12-01] MEDS ORDERED: TUBERCULIN SKIN TEST 0.1 ML SYRINGE INTRADERM ONE (10:00)
[2017-12-01 12:10] VITALS: BP 132/59
== END 2017-12-01 16:13 | disposition swing bed (61) ==
LOC: EDUNIT# → EDBD → N.EDINP 08:12 → N.ED 08:12 → N.ICU 12:25 → N.2E 20:09
PROVIDERS: ADMIT Internal Medicine; ATTEND Family Medicine

== ENCOUNTER 2018-07-12 14:52 | Observation (INO) ==
[2018-07-12 16:43] LABS: Basophils # 0.1 10*3/uL (0.0-0.2); Basophils % 0.8 % (0.0-0.8); Eosinophils # 0.3 10*3/uL (0.0-0.87); Eosinophils % 3.2 % (0.00-10.9); Hematocrit 38.2 VOL% (42.0-52.0); Hemoglobin 12.7 GM/DL (14.0-18.0); Immature Granulocytes % 0.5 %; Immature Granulocytes Absolute 0.05 #; Lymphocytes # 2.5 10*3/uL (1.4-4.0); Mean Corpuscular HGB Conc 33.2 GM/DL (32-36); Mean Corpuscular Hemoglobin 28 PG (27-34); Mean Corpuscular Volume 84.5 FL (87-102); Mean Platelet Volume 11.4 FL (9.6-12.0); Monocytes # 0.8 10*3/uL (0.11-0.8); Monocytes % 8.1 % (1.7-12.7); Neutrophils # 6.5 10*3/uL (1.4-7.4); Neutrophils % 63.4 % (38.7-73.9); Platelet Count 171 T/CUMM (130-400); Red Blood Count 4.52 MC/CUMM (3.8-5.5); Red Cell Distribution Width 13.4 % (9.3-17.3); White Blood Count 10.3 T/CUMM (4-12)
[2018-07-12 16:53] LABS: Apearance,Urine Slightly Hazy (Clear); Bilirubin,Urine Negative (Negative); Blood, Urine Negative (Negative); Glucose,Urine (UA) Negative (Negative); Ketones,Urine 5 mg/dL (Negative); Mucus,Urine Occasional /LPF (Occasional); Nitrite,Urine Positive (Negative); Protein,Urine Negative; RBC,Urine 5 /HPF (0-4); Urine Color Yellow (Yellow); Urine Specific Gravity 1.013 (1.001-1.035); Urine Urobilinogen < 2.0 EU/DL (0.2-1.0); WBC,Urine 49 /HPF (0-6)
[2018-07-12 17:05] LABS: Barbiturates Screen,Urine Negative (Negative); Benzodiazepines Screen,Urine Positive (Negative); Cannabinoid Screen,Urine Negative (Negative); Opiate Screen,Urine Negative (Negative); Phencyclidine Screen,Urine Negative (Negative)
[2018-07-12 17:09] LABS: Albumin 3.8 G/DL (3.4-5.0); Bilirubin,Total 0.4 MG/DL (0.2-1.0); Calcium 9.2 MG/DL (8.5-10.1); Osmolality,Calculated 278.5 MOS/KG (273-304); Potassium 3.8 MMOL/L (3.5-5.1); Total Protein 7.7 G/DL (6.4-8.3)
[2018-07-12] MEDS ORDERED: cefTRIAXone 1,000 MG in SODIUM CHLORIDE 0.9% 100 ML IV STA (17:24)
[2018-07-12] MEDS ORDERED: ONDANSETRON 4 MG/2 ML VIAL IV PRN (19:02)
[2018-07-12] MEDS ORDERED: ACETAMINOPHEN 325 MG TABLET PO PRN (19:02)
[2018-07-12] MEDS ORDERED: GLUCAGON 1 MG VIAL IM PRN (19:02)
[2018-07-12] MEDS ORDERED: DEXTROSE 50% 25 GM/50 ML VIAL IV PRN (19:02)
[2018-07-12] MEDS ORDERED: ALPRAZolam 0.5 MG TABLET PO PRN (20:49)
[2018-07-12] MEDS: SODIUM CHLORIDE 0.9% 1,000 ML IV SCH (21:02)
[2018-07-12] MEDS: DOCUSATE SODIUM 100 MG CAPSULE PO SCH (21:02)
[2018-07-12] MEDS: INSULIN LISPRO 100 UNIT/ML SUBCUT SCH (21:03)
[2018-07-12] MEDS ORDERED: NICOTINE 21 MG/24 HR PATCH TRANSDERM PRN (22:02)
[2018-07-13] MEDS ORDERED: traZODone 50 MG TABLET PO PRN (01:10)
[2018-07-13] MEDS ORDERED: CLORAZEPATE 3.75 MG TABLET PO PRN (01:11)
[2018-07-13] MEDS: SODIUM CHLORIDE 0.9% 1,000 ML IV SCH (05:17)
[2018-07-13] MEDS ORDERED: PANTOPRAZOLE 40 MG TABLET PO SCH (09:00)
[2018-07-13] MEDS: DOCUSATE SODIUM 100 MG CAPSULE PO SCH (09:10)
[2018-07-13] MEDS: INSULIN LISPRO 100 UNIT/ML SUBCUT SCH ×2 (09:10→12:36)
[2018-07-13] MEDS ORDERED: GABAPENTIN 600 MG TABLET PO PRN (09:27)
[2018-07-13] MEDS ORDERED: hydrALAZINE 20 MG/1 ML VIAL IV PRN (09:30)
[2018-07-13] MEDS ORDERED: BISACODYL 10 MG SUPP RECTAL PRN (09:33)
[2018-07-13] MEDS ORDERED: ALBUTEROL 2.5 MG/3 ML NEB RESP TX PRN (10:00)
[2018-07-13] MEDS ORDERED: cefTRIAXone 1,000 MG in SYRINGE 1 EACH IV SCH (11:00)
[2018-07-13 11:54] VITALS: BP 160/84
[2018-07-13] MEDS ORDERED: CARVEDILOL 3.125 MG TABLET PO SCH (17:00)
[2018-07-13] MEDS ORDERED: ATORVASTATIN 40 MG TABLET PO SCH (21:00)
[2018-07-14] MEDS ORDERED: ASPIRIN CHEW 81 MG TABLET PO SCH (09:00)
[2018-07-14] MEDS ORDERED: BRILINTA 60MG PO SCH (09:00)
[2018-07-14] MEDS ORDERED: LISINOPRIL 10 MG TABLET PO SCH (09:00)
[2018-07-14] MEDS ORDERED: sitaGLIPtin 100 MG TABLET PO SCH (09:00)
== END 2018-07-13 13:00 | disposition hospice, home (50) ==
LOC: EDBD → EDUNIT# → N.EDINP 14:52 → N.ED 14:52 → N.2E 18:36
PROVIDERS: ADMIT Family Medicine; ATTEND Family Medicine

== ENCOUNTER 2018-08-02 11:23 | Inpatient (IN) ==
[2018-08-02] MEDS ORDERED: PANTOPRAZOLE 40 MG VIAL IV STA (11:35)
[2018-08-02] MEDS ORDERED: SODIUM CHLORIDE 0.9% 1,000 ML IV STA (11:35)
[2018-08-02] MEDS ORDERED: LIDOCAINE 1%/EPI INJ 20 ML VIAL ONE (12:18)
[2018-08-02] MEDS ORDERED: ONDANSETRON 4 MG/2 ML VIAL ONE (12:23)
[2018-08-02] MEDS ORDERED: ONDANSETRON 4 MG/2 ML VIAL IV STA (12:25)
[2018-08-02 12:45] LABS: Basophils # 0.1 10*3/uL (0.0-0.2); Basophils % 0.7 % (0.0-0.8); Eosinophils # 0.5 10*3/uL (0.0-0.87); Eosinophils % 4.2 % (0.00-10.9); Hematocrit 37.3 VOL% (42.0-52.0); Hemoglobin 11.8 GM/DL (14.0-18.0); Immature Granulocytes % 0.6 %; Immature Granulocytes Absolute 0.06 #; Lymphocytes % 18.5 % (21.2-54.2); Mean Corpuscular HGB Conc 31.6 GM/DL (32-36); Mean Corpuscular Hemoglobin 28 PG (27-34); Mean Corpuscular Volume 87.1 FL (87-102); Mean Platelet Volume 11.8 FL (9.6-12.0); Monocytes # 0.8 10*3/uL (0.11-0.8); Monocytes % 7.1 % (1.7-12.7); Neutrophils # 7.4 10*3/uL (1.4-7.4); Neutrophils % 68.9 % (38.7-73.9); Platelet Count 163 T/CUMM (130-400); Red Blood Count 4.28 MC/CUMM (3.8-5.5); Red Cell Distribution Width 13.3 % (9.3-17.3); White Blood Count 10.7 T/CUMM (4-12)
[2018-08-02 12:48] LABS: PT Patient Result 10.5 SECS; Partial Thromboplastin Time 26.2 SECS (0-40)
[2018-08-02 12:53] LABS: Alanine Aminotransferase 37 U/L (16-61); Albumin 3.7 G/DL (3.4-5.0); Alkaline Phosphatase 35 U/L (45-117); Aspartate Amino Transferase 18 U/L (0-37); Bilirubin,Total < 0.39 MG/DL (0.2-1.0); Blood Urea Nitrogen 15 MG/DL (7-18); Calcium 9.1 MG/DL (8.5-10.1); Glucose 142 MG/DL (74-106); Osmolality,Calculated 275.8 MOS/KG (273-304); Potassium 4.2 MMOL/L (3.5-5.1); Sodium 137 MMOL/L (136-145); Total Protein 7.3 G/DL (6.4-8.3)
[2018-08-02] MEDS ORDERED: ONDANSETRON 4 MG/2 ML VIAL IV PRN (14:00)
[2018-08-02] MEDS ORDERED: ACETAMINOPHEN 325 MG TABLET PO PRN (14:00)
[2018-08-02] MEDS: SODIUM CHLORIDE 0.9% 1,000 ML IV SCH (14:43)
[2018-08-02] MEDS ORDERED: ALBUTEROL 2.5 MG/3 ML NEB RESP TX PRN (15:50)
[2018-08-02] MEDS ORDERED: NITROGLYCERIN SL 0.4 MG TABLET SL PRN (15:50)
[2018-08-02] MEDS ORDERED: GABAPENTIN 600 MG TABLET PO PRN (15:50)
[2018-08-02] MEDS: GABAPENTIN 100 MG CAPSULE PO SCH ×2 (16:46→21:58)
[2018-08-02] MEDS: ACETAMINOPHEN 325 MG TABLET PO SCH ×2 (16:46→21:53)
[2018-08-02] MEDS ORDERED: DEXTROSE 50% 25 GM/50 ML VIAL IV PRN (16:52)
[2018-08-02] MEDS ORDERED: GLUCAGON 1 MG VIAL IM PRN (16:52)
[2018-08-02] MEDS ORDERED: ALPRAZolam 0.5 MG TABLET PO ONE (19:49)
[2018-08-02] MEDS ORDERED: TAMSULOSIN 0.4 MG CAPSULE PO SCH (21:00)
[2018-08-02] MEDS: CARVEDILOL 3.125 MG TABLET PO SCH (21:56)
[2018-08-02] MEDS: DOCUSATE SODIUM 100 MG CAPSULE PO SCH (21:56)
[2018-08-02] MEDS: traZODone 50 MG TABLET PO SCH (21:57)
[2018-08-02] MEDS: MAGNESIUM OXIDE 400 MG TABLET PO SCH (21:57)
[2018-08-02] MEDS: TAMSULOSIN 0.4 MG CAPSULE PO SCH (21:57)
[2018-08-02] MEDS: ATORVASTATIN 40 MG TABLET PO SCH (21:58)
[2018-08-02] MEDS: INSULIN LISPRO 100 UNIT/ML SUBCUT SCH (21:58)
[2018-08-03] MEDS: SODIUM CHLORIDE 0.9% 1,000 ML IV SCH ×3 (00:55→20:45)
[2018-08-03 04:37] LABS: Basophils # 0.1 10*3/uL (0.0-0.2); Basophils % 0.9 % (0.0-0.8); Eosinophils # 0.5 10*3/uL (0.0-0.87); Eosinophils % 7.1 % (0.00-10.9); Hematocrit 33.6 VOL% (42.0-52.0); Hemoglobin 10.6 GM/DL (14.0-18.0); Immature Granulocytes % 0.5 %; Immature Granulocytes Absolute 0.04 #; Lymphocytes # 2.2 10*3/uL (1.4-4.0); Lymphocytes % 28.6 % (21.2-54.2); Mean Corpuscular HGB Conc 31.5 GM/DL (32-36); Mean Corpuscular Hemoglobin 28 PG (27-34); Mean Corpuscular Volume 87.7 FL (87-102); Mean Platelet Volume 11.5 FL (9.6-12.0); Monocytes # 0.7 10*3/uL (0.11-0.8); Monocytes % 8.8 % (1.7-12.7); Neutrophils # 4.1 10*3/uL (1.4-7.4); Neutrophils % 54.1 % (38.7-73.9); Platelet Count 133 T/CUMM (130-400); Red Blood Count 3.83 MC/CUMM (3.8-5.5); Red Cell Distribution Width 13.6 % (9.3-17.3); White Blood Count 7.6 T/CUMM (4-12)
[2018-08-03 05:11] LABS: Calcium 8.5 MG/DL (8.5-10.1); Osmolality,Calculated 279.4 MOS/KG (273-304); Potassium 4.4 MMOL/L (3.5-5.1)
[2018-08-03 05:14] LABS: Troponin I < 0.015 NG/ML (0.00-0.045)
[2018-08-03] MEDS: INSULIN LISPRO 100 UNIT/ML SUBCUT SCH ×4 (07:43→20:50)
[2018-08-03] MEDS: GABAPENTIN 100 MG CAPSULE PO SCH ×3 (08:22→20:47)
[2018-08-03] MEDS: SERTRALINE 100 MG TABLET PO SCH (08:22)
[2018-08-03] MEDS: PANTOPRAZOLE 40 MG TABLET PO SCH (08:23)
[2018-08-03] MEDS: MAGNESIUM OXIDE 400 MG TABLET PO SCH ×2 (08:23→20:47)
[2018-08-03] MEDS: CARVEDILOL 3.125 MG TABLET PO SCH ×2 (08:23→20:47)
[2018-08-03] MEDS: ACETAMINOPHEN 325 MG TABLET PO SCH ×2 (08:23→20:47)
[2018-08-03] MEDS: LISINOPRIL 10 MG TABLET PO SCH (08:23)
[2018-08-03] MEDS: TAMSULOSIN 0.4 MG CAPSULE PO SCH (08:23)
[2018-08-03] MEDS: DOCUSATE SODIUM 100 MG CAPSULE PO SCH ×2 (08:23→20:47)
[2018-08-03] MEDS: traZODone 50 MG TABLET PO SCH (20:47)
[2018-08-03] MEDS: ATORVASTATIN 40 MG TABLET PO SCH (20:47)
[2018-08-04] MEDS: SODIUM CHLORIDE 0.9% 1,000 ML IV SCH (03:20)
[2018-08-04 04:24] LABS: Basophils # 0.1 10*3/uL (0.0-0.2); Eosinophils # 0.5 10*3/uL (0.0-0.87); Eosinophils % 6.4 % (0.00-10.9); Hematocrit 34.6 VOL% (42.0-52.0); Hemoglobin 10.9 GM/DL (14.0-18.0); Immature Granulocytes % 0.5 %; Immature Granulocytes Absolute 0.04 #; Lymphocytes # 2.2 10*3/uL (1.4-4.0); Lymphocytes % 27.4 % (21.2-54.2); Mean Corpuscular HGB Conc 31.5 GM/DL (32-36); Mean Corpuscular Hemoglobin 28 PG (27-34); Mean Corpuscular Volume 87.2 FL (87-102); Mean Platelet Volume 11.4 FL (9.6-12.0); Monocytes # 0.6 10*3/uL (0.11-0.8); Monocytes % 7.2 % (1.7-12.7); Neutrophils # 4.7 10*3/uL (1.4-7.4); Neutrophils % 57.5 % (38.7-73.9); Platelet Count 151 T/CUMM (130-400); Red Blood Count 3.97 MC/CUMM (3.8-5.5); Red Cell Distribution Width 13.3 % (9.3-17.3); White Blood Count 8.1 T/CUMM (4-12)
[2018-08-04] MEDS: MAGNESIUM OXIDE 400 MG TABLET PO SCH (08:55)
[2018-08-04] MEDS: CARVEDILOL 3.125 MG TABLET PO SCH (08:55)
[2018-08-04] MEDS: DOCUSATE SODIUM 100 MG CAPSULE PO SCH (08:55)
[2018-08-04] MEDS: GABAPENTIN 100 MG CAPSULE PO SCH (08:55)
[2018-08-04] MEDS: SERTRALINE 100 MG TABLET PO SCH (08:55)
[2018-08-04] MEDS: TAMSULOSIN 0.4 MG CAPSULE PO SCH (08:56)
[2018-08-04] MEDS: INSULIN LISPRO 100 UNIT/ML SUBCUT SCH ×2 (08:56→12:28)
[2018-08-04] MEDS: PANTOPRAZOLE 40 MG TABLET PO SCH (08:56)
[2018-08-04] MEDS: LISINOPRIL 10 MG TABLET PO SCH (08:56)
[2018-08-04] MEDS: ACETAMINOPHEN 325 MG TABLET PO SCH (08:56)
[2018-08-04] MEDS ORDERED: ASPIRIN EC 81 MG TABLET PO SCH (09:00)
[2018-08-04] MEDS ORDERED: POLYETHYLENE GLYCOL POWDER 17 GM PACK PO PRN (10:13)
[2018-08-04] MEDS ORDERED: BISACODYL 10 MG SUPP RECTAL ONE (10:14)
[2018-08-04] MEDS ORDERED: MAGNESIUM SULF RIDER 2 GM in PREMIX 1 EACH IV PRN (10:34)
[2018-08-04] MEDS ORDERED: MAGNESIUM SULF RIDER 4 GM in PREMIX 1 EACH IV PRN (10:34)
[2018-08-04 13:30] VITALS: BP 161/79
== END 2018-08-04 13:55 | disposition home health service (06) | DRG 813 ==
LOC: EDUNIT# → EDBD → N.ED 11:23 → N.EDINP 12:41 → N.5E 14:18
PROVIDERS: ADMIT Family Medicine; ATTEND Family Medicine

== ENCOUNTER 2019-02-06 05:37 | Inpatient (IN) ==
[2018-12-27 11:56] LABS: Basophils # 0.1 10*3/uL (0.0-0.2); Basophils % 0.9 % (0.0-0.8); Eosinophils # 0.8 10*3/uL (0.0-0.87); Eosinophils % 8.1 % (0.00-10.9); Hematocrit 37.7 VOL% (42.0-52.0); Hemoglobin 12.2 GM/DL (14.0-18.0); Immature Granulocytes % 0.5 %; Immature Granulocytes Absolute 0.05 #; Lymphocytes % 21.3 % (21.2-54.2); Mean Corpuscular HGB Conc 32.4 GM/DL (32-36); Mean Corpuscular Volume 86.7 FL (87-102); Mean Platelet Volume 11.5 FL (9.6-12.0); Monocytes % 6.4 % (1.7-12.7); Neutrophils % 62.8 % (38.7-73.9); Platelet Count 169 T/CUMM (130-400); Red Blood Count 4.35 MC/CUMM (3.8-5.5); Red Cell Distribution Width 14.1 % (9.3-17.3); White Blood Count 9.4 T/CUMM (4-12)
[2018-12-27 12:07] LABS: Apearance,Urine CLEAR (Clear); Bilirubin,Urine Negative (Negative); Blood, Urine Negative (Negative); Glucose,Urine (UA) 50 mg/dL (Negative); Ketones,Urine Negative (Negative); Nitrite,Urine Negative (Negative); Protein,Urine Negative; Urine Color Yellow (Yellow); Urine Specific Gravity 1.013 (1.001-1.035); Urine Urobilinogen < 2.0 EU/DL (0.2-1.0); WBC,Urine <1 /HPF (0-6)
[2018-12-27 12:27] LABS: Calcium 9.1 MG/DL (8.5-10.1); Osmolality,Calculated 274.2 MOS/KG (273-304)
[~2019-02-06 05:37] MED LIST: LEVOFLOXACIN INJ 500 MG in PREMIX 1 EACH IV ONE
[2019-02-06] MEDS ORDERED: LEVOFLOXACIN INJ 100 ML IV ONE (06:42)
[2019-02-06] MEDS ORDERED: LEVOFLOXACIN INJ 500 MG in PREMIX 1 EACH IV ONE (06:57)
[2019-02-06] MEDS ORDERED: LACTATED RINGERS 1,000 ML IV SCH (07:00)
[2019-02-06] MEDS ORDERED: PROPOFOL 200 MG/20 ML VIAL IV ONE (08:05)
[2019-02-06] MEDS ORDERED: MIDAZOLAM 2 MG/2 ML VIAL ONE (08:05)
[2019-02-06] MEDS ORDERED: SEVOFLURANE 1 UNIT/15 MINUTE INH ONE (08:05)
[2019-02-06] MEDS ORDERED: ETOMIDATE 40 MG/20 ML VIAL IV ONE (08:06)
[2019-02-06] MEDS ORDERED: ONDANSETRON 4 MG/2 ML VIAL ONE (08:06)
[2019-02-06] MEDS ORDERED: FLUMAZENIL 0.5 MG/5 ML VIAL IV ONE (08:06)
[2019-02-06] MEDS ORDERED: NALOXONE 0.4 MG/ML VIAL ONE (08:06)
[2019-02-06] MEDS ORDERED: EPINEPHrine 1 MG/10 ML SYRINGE ONE (08:06)
[2019-02-06] MEDS ORDERED: SUCCINYLCHOLINE 200 MG/10 ML VIAL ONE (08:06)
[2019-02-06] MEDS ORDERED: ROCURONIUM 100 MG/10 ML VIAL IV ONE (08:06)
[2019-02-06] MEDS ORDERED: fentaNYL 100 MCG/2 ML VIAL ONE (08:06)
[2019-02-06 09:53] VITALS: BP 95/50
[2019-02-06] MEDS ORDERED: GLUCAGON 1 MG VIAL IM PRN (11:55)
[2019-02-06] MEDS ORDERED: DEXTROSE 50% 25 GM/50 ML SYRINGE IV PRN (11:55)
[2019-02-06] MEDS ORDERED: DOCUSATE SODIUM 100 MG CAPSULE PO PRN (12:40)
[2019-02-06] MEDS ORDERED: ALBUTEROL 2.5 MG/3 ML NEB RESP TX PRN (12:40)
[2019-02-06 14:18] LABS: CKMB % 6.3 %
[2019-02-06 14:22] LABS: Troponin I 1.54 NG/ML (0.00-0.045)
[2019-02-06] MEDS ORDERED: NON-FORMULARY MEDICATION (Ticagrelor [Brilinta] 60 MG) PO SCH (15:00)
[2019-02-06 15:53] LABS: CKMB % 5.7 %
[2019-02-06 16:04] LABS: Troponin I 1.62 NG/ML (0.00-0.045)
[2019-02-06] MEDS: INSULIN LISPRO 100 UNIT/ML SUBCUT SCH ×2 (16:59→20:39)
[2019-02-06] MEDS: MAGNESIUM OXIDE 400 MG TABLET PO SCH (20:40)
[2019-02-06] MEDS: Ticagrelor [Brilinta] 60 MG PO SCH (20:41)
[2019-02-06] MEDS ORDERED: ATORVASTATIN 40 MG TABLET PO SCH (21:00)
[2019-02-07 03:16] LABS: Basophils # 0.1 10*3/uL (0.0-0.2); Basophils % 0.5 % (0.0-0.8); Eosinophils # 0.7 10*3/uL (0.0-0.87); Eosinophils % 4.9 % (0.00-10.9); Hematocrit 38.4 VOL% (42.0-52.0); Hemoglobin 12.6 GM/DL (14.0-18.0); Immature Granulocytes % 0.6 %; Immature Granulocytes Absolute 0.08 #; Lymphocytes # 2.5 10*3/uL (1.4-4.0); Lymphocytes % 19.1 % (21.2-54.2); Mean Corpuscular HGB Conc 32.8 GM/DL (32-36); Mean Corpuscular Volume 85.7 FL (87-102); Monocytes % 7.2 % (1.7-12.7); Neutrophils % 67.7 % (38.7-73.9); Platelet Count 168 T/CUMM (130-400); Red Blood Count 4.48 MC/CUMM (3.8-5.5); Red Cell Distribution Width 13.2 % (9.3-17.3); White Blood Count 13.2 T/CUMM (4-12)
[2019-02-07 03:33] LABS: Calcium 9.2 MG/DL (8.5-10.1); Osmolality,Calculated 274.1 MOS/KG (273-304)
[2019-02-07] MEDS: INSULIN LISPRO 100 UNIT/ML SUBCUT SCH ×3 (08:52→17:31)
[2019-02-07] MEDS: MAGNESIUM OXIDE 400 MG TABLET PO SCH (08:53)
[2019-02-07] MEDS: Ticagrelor [Brilinta] 60 MG PO SCH (08:54)
[2019-02-07] MEDS ORDERED: ASPIRIN CHEW 81 MG TABLET PO SCH (09:00)
[2019-02-07] MEDS ORDERED: TAMSULOSIN 0.4 MG CAPSULE PO SCH (21:00)
[2019-02-08] MEDS ORDERED: DUTASTERIDE 0.5 MG CAPSULE PO SCH (09:00)
[2019-02-08] MEDS ORDERED: DULoxetine 30 MG CAPSULE PO SCH (09:00)
== END 2019-02-07 17:15 | disposition home health service (06) | DRG 297 ==
LOC: N.OR 05:37 → N.SDSINP 05:38 → N.CC 07:50
PROVIDERS: ADMIT Family Medicine; ATTEND Family Medicine

== ENCOUNTER 2019-02-21 15:43 | Inpatient (IN) ==
[2019-02-21 17:34] LABS: Basophils # 0.1 10*3/uL (0.0-0.2); Basophils % 0.8 % (0.0-0.8); Eosinophils # 0.5 10*3/uL (0.0-0.87); Eosinophils % 5.3 % (0.00-10.9); Hematocrit 35.6 VOL% (42.0-52.0); Hemoglobin 11.9 GM/DL (14.0-18.0); Immature Granulocytes % 0.4 %; Immature Granulocytes Absolute 0.03 #; Lymphocytes # 2.1 10*3/uL (1.4-4.0); Lymphocytes % 24.5 % (21.2-54.2); Mean Corpuscular HGB Conc 33.4 GM/DL (32-36); Mean Corpuscular Volume 84.4 FL (87-102); Mean Platelet Volume 10.8 FL (9.6-12.0); Monocytes % 7.7 % (1.7-12.7); Neutrophils % 61.3 % (38.7-73.9); Platelet Count 198 T/CUMM (130-400); Red Blood Count 4.22 MC/CUMM (3.8-5.5); Red Cell Distribution Width 13.4 % (9.3-17.3); White Blood Count 8.6 T/CUMM (4-12)
[2019-02-21] MEDS ORDERED: ENOXAPARIN 80 MG/0.8 ML SYRINGE SUBCUT STA (17:34)
[2019-02-21] MEDS ORDERED: GLUCAGON 1 MG VIAL IM PRN (17:39)
[2019-02-21] MEDS ORDERED: ONDANSETRON 4 MG/2 ML VIAL IV PRN (17:39)
[2019-02-21] MEDS ORDERED: DEXTROSE 50% 25 GM/50 ML VIAL IV PRN (17:39)
[2019-02-21 17:56] LABS: Alanine Aminotransferase 28 U/L (16-61); Albumin 3.7 G/DL (3.4-5.0); Alkaline Phosphatase 48 U/L (45-117); Aspartate Amino Transferase 19 U/L (0-37); Bilirubin,Total < 0.39 MG/DL (0.2-1.0); Blood Urea Nitrogen 17 MG/DL (7-18); Calcium 9.3 MG/DL (8.5-10.1); Glucose 111 MG/DL (74-106); Osmolality,Calculated 270.2 MOS/KG (273-304); Total Protein 7.5 G/DL (6.4-8.3)
[2019-02-21] MEDS ORDERED: ALBUTEROL 2.5 MG/3 ML NEB RESP TX PRN (20:32)
[2019-02-21] MEDS ORDERED: BENZTROPINE 1 MG TABLET PO PRN (20:32)
[2019-02-21] MEDS ORDERED: NITROGLYCERIN SL 0.4 MG TABLET SL PRN (20:32)
[2019-02-21] MEDS ORDERED: ENOXAPARIN 40 MG/0.4 ML SYRINGE SUBCUT SCH (21:00)
[2019-02-21] MEDS: INSULIN LISPRO 100 UNIT/ML SUBCUT SCH (21:51)
[2019-02-21] MEDS: MAGNESIUM OXIDE 400 MG TABLET PO SCH (21:52)
[2019-02-21] MEDS: traZODone 50 MG TABLET PO PRN (21:52)
[2019-02-21] MEDS: ATORVASTATIN 40 MG TABLET PO SCH (21:52)
[2019-02-21] MEDS: CARVEDILOL 3.125 MG TABLET PO SCH (21:52)
[2019-02-21] MEDS: SENNA 8.6 MG TABLET PO SCH (21:53)
[2019-02-21] MEDS: DOCUSATE SODIUM 100 MG CAPSULE PO SCH (21:53)
[2019-02-21] MEDS: ACETAMINOPHEN 325 MG TABLET PO PRN (21:53)
[2019-02-21] MEDS: TAMSULOSIN 0.4 MG CAPSULE PO SCH (21:53)
[2019-02-21] MEDS: SODIUM CHLORIDE 0.9% 1,000 ML IV SCH (21:55)
[2019-02-21] MEDS: NYSTATIN CREAM 15 GM TUBE TOP SCH (21:55)
[2019-02-22] MEDS: ACETAMINOPHEN 325 MG TABLET PO PRN (03:50)
[2019-02-22] MEDS: SODIUM CHLORIDE 0.9% 1,000 ML IV SCH ×2 (05:07→11:30)
[2019-02-22] MEDS ORDERED: ASPIRIN CHEW 81 MG TABLET PO ONE (07:35)
[2019-02-22] MEDS ORDERED: MAGNESIUM SULF RIDER 2 GM in PREMIX 1 EACH IV PRN (07:40)
[2019-02-22] MEDS ORDERED: POTASSIUM CHLORIDE RIDER 10 MEQ in PREMIX 1 EACH IV PRN (07:40)
[2019-02-22] MEDS ORDERED: metFORMIN 500 MG TABLET PO SCH (08:00)
[2019-02-22] MEDS ORDERED: ENOXAPARIN 80 MG/0.8 ML SYRINGE SUBCUT ONE (08:00)
[2019-02-22 08:07] LABS: PT Patient Result 10.7 SECS
[2019-02-22] MEDS: INSULIN LISPRO 100 UNIT/ML SUBCUT SCH ×4 (08:32→20:49)
[2019-02-22] MEDS ORDERED: TICAGRELOR 90 MG TABLET PO SCH (09:00)
[2019-02-22] MEDS ORDERED: ASPIRIN CHEW 81 MG TABLET PO SCH (09:00)
[2019-02-22] MEDS ORDERED: Ticagrelor [Brilinta] 60 MG PO SCH (09:00)
[2019-02-22] MEDS: PANTOPRAZOLE 40 MG TABLET PO SCH (09:41)
[2019-02-22] MEDS: CARVEDILOL 3.125 MG TABLET PO SCH ×2 (09:42→17:58)
[2019-02-22] MEDS: LISINOPRIL 5 MG TABLET PO SCH (09:42)
[2019-02-22] MEDS: NYSTATIN CREAM 15 GM TUBE TOP SCH ×2 (09:43→21:03)
[2019-02-22] MEDS: FLUTICASONE 50 MCG NASAL SPRAY 16 GM BOTTLE BOTH NARES SCH (09:43)
[2019-02-22] MEDS: sitaGLIPtin 100 MG TABLET PO SCH (09:43)
[2019-02-22] MEDS: MAGNESIUM OXIDE 400 MG TABLET PO SCH ×2 (09:43→20:53)
[2019-02-22] MEDS: DUTASTERIDE 0.5 MG CAPSULE PO SCH (09:44)
[2019-02-22] MEDS: ARIPiprazole 5 MG TABLET PO SCH (09:44)
[2019-02-22] MEDS: DULoxetine 30 MG CAPSULE PO SCH (09:44)
[2019-02-22] MEDS: TAMSULOSIN 0.4 MG CAPSULE PO SCH ×2 (09:44→20:53)
[2019-02-22] MEDS: DOCUSATE SODIUM 100 MG CAPSULE PO SCH ×2 (09:44→21:02)
[2019-02-22] MEDS: NICOTINE 21 MG/24 HR PATCH TRANSDERM SCH (09:47)
[2019-02-22] MEDS ORDERED: diphenhydrAMINE CAP 25 MG CAPSULE PO ONE (13:30)
[2019-02-22] MEDS ORDERED: DIAZEPAM 5 MG TABLET PO ONE (13:30)
[2019-02-22] MEDS ORDERED: LIDOCAINE 1% 20 ML VIAL ONE (15:30)
[2019-02-22] MEDS ORDERED: MIDAZOLAM 2 MG/2 ML VIAL ONE (15:33)
[2019-02-22] MEDS ORDERED: fentaNYL 100 MCG/2 ML VIAL ONE (15:35)
[2019-02-22] MEDS ORDERED: NIFEdipine 10 MG CAPSULE PO ONE (16:15)
[2019-02-22 18:49] LABS: Apearance,Urine CLEAR (Clear); Bilirubin,Urine Negative (Negative); Blood, Urine Negative (Negative); Glucose,Urine (UA) Negative (Negative); Ketones,Urine Negative (Negative); Mucus,Urine Occasional /LPF (Occasional); Nitrite,Urine Positive (Negative); Protein,Urine Negative; RBC,Urine <1 /HPF (0-4); Urine Color Yellow (Yellow); Urine Urobilinogen < 2.0 EU/DL (0.2-1.0); WBC,Urine 1 /HPF (0-6)
[2019-02-22] MEDS: traZODone 50 MG TABLET PO PRN (20:53)
[2019-02-22] MEDS: ATORVASTATIN 40 MG TABLET PO SCH (20:53)
[2019-02-22] MEDS: SENNA 8.6 MG TABLET PO SCH (21:03)
[2019-02-23] MEDS: ACETAMINOPHEN 325 MG TABLET PO PRN (00:17)
[2019-02-23 05:47] LABS: Basophils # 0.1 10*3/uL (0.0-0.2); Basophils % 0.6 % (0.0-0.8); Eosinophils # 0.4 10*3/uL (0.0-0.87); Eosinophils % 4.9 % (0.00-10.9); Hematocrit 32.7 VOL% (42.0-52.0); Hemoglobin 10.4 GM/DL (14.0-18.0); Immature Granulocytes % 0.4 %; Immature Granulocytes Absolute 0.03 #; Lymphocytes # 1.5 10*3/uL (1.4-4.0); Lymphocytes % 18.8 % (21.2-54.2); Mean Corpuscular HGB Conc 31.8 GM/DL (32-36); Mean Platelet Volume 10.4 FL (9.6-12.0); Monocytes % 7.5 % (1.7-12.7); Neutrophils % 67.8 % (38.7-73.9); Platelet Count 171 T/CUMM (130-400); Red Blood Count 3.76 MC/CUMM (3.8-5.5); Red Cell Distribution Width 13.3 % (9.3-17.3)
[2019-02-23 06:32] LABS: Calcium 9.2 MG/DL (8.5-10.1); Osmolality,Calculated 279.5 MOS/KG (273-304)
[2019-02-23 06:34] LABS: Calcium 8.8 MG/DL (8.5-10.1); Osmolality,Calculated 277.7 MOS/KG (273-304)
[2019-02-23] MEDS: INSULIN LISPRO 100 UNIT/ML SUBCUT SCH ×4 (08:19→20:00)
[2019-02-23] MEDS: TAMSULOSIN 0.4 MG CAPSULE PO SCH ×2 (08:54→22:43)
[2019-02-23] MEDS: CARVEDILOL 3.125 MG TABLET PO SCH ×2 (08:54→16:46)
[2019-02-23] MEDS: ASPIRIN EC 325 MG TABLET PO SCH (08:54)
[2019-02-23] MEDS: MAGNESIUM OXIDE 400 MG TABLET PO SCH ×2 (08:54→22:42)
[2019-02-23] MEDS: DUTASTERIDE 0.5 MG CAPSULE PO SCH (08:54)
[2019-02-23] MEDS: LISINOPRIL 5 MG TABLET PO SCH (08:55)
[2019-02-23] MEDS: ARIPiprazole 5 MG TABLET PO SCH (08:55)
[2019-02-23] MEDS: sitaGLIPtin 100 MG TABLET PO SCH (08:55)
[2019-02-23] MEDS: PANTOPRAZOLE 40 MG TABLET PO SCH (08:55)
[2019-02-23] MEDS: DULoxetine 30 MG CAPSULE PO SCH (08:55)
[2019-02-23] MEDS: DOCUSATE SODIUM 100 MG CAPSULE PO SCH ×2 (08:55→22:43)
[2019-02-23] MEDS: NICOTINE 21 MG/24 HR PATCH TRANSDERM SCH (08:56)
[2019-02-23] MEDS: NYSTATIN CREAM 15 GM TUBE TOP SCH ×2 (08:58→22:43)
[2019-02-23] MEDS: FLUTICASONE 50 MCG NASAL SPRAY 16 GM BOTTLE BOTH NARES SCH (08:58)
[2019-02-23] MEDS ORDERED: ASPIRIN CHEW 81 MG TABLET PO SCH (09:00)
[2019-02-23] MEDS: CIPROFLOXACIN 500 MG TABLET PO SCH ×2 (09:10→22:43)
[2019-02-23] MEDS: ENOXAPARIN 30 MG/0.3 ML SYRINGE SUBCUT SCH (12:37)
[2019-02-23] MEDS: traZODone 50 MG TABLET PO PRN (22:41)
[2019-02-23] MEDS: ATORVASTATIN 40 MG TABLET PO SCH (22:43)
[2019-02-23] MEDS: SENNA 8.6 MG TABLET PO SCH (22:43)
[2019-02-24 06:02] LABS: Basophils # 0.1 10*3/uL (0.0-0.2); Basophils % 0.8 % (0.0-0.8); Eosinophils # 0.4 10*3/uL (0.0-0.87); Eosinophils % 6.1 % (0.00-10.9); Hematocrit 33.8 VOL% (42.0-52.0); Immature Granulocytes % 0.3 %; Immature Granulocytes Absolute 0.02 #; Lymphocytes # 1.8 10*3/uL (1.4-4.0); Lymphocytes % 24.5 % (21.2-54.2); Mean Corpuscular HGB Conc 32.5 GM/DL (32-36); Mean Corpuscular Volume 85.8 FL (87-102); Monocytes % 7.7 % (1.7-12.7); Neutrophils % 60.6 % (38.7-73.9); Platelet Count 189 T/CUMM (130-400); Red Blood Count 3.94 MC/CUMM (3.8-5.5); Red Cell Distribution Width 13.2 % (9.3-17.3); White Blood Count 7.3 T/CUMM (4-12)
[2019-02-24 06:21] LABS: Calcium 8.9 MG/DL (8.5-10.1); Osmolality,Calculated 280.5 MOS/KG (273-304)
[2019-02-24] MEDS: DULoxetine 30 MG CAPSULE PO SCH (08:13)
[2019-02-24] MEDS: metFORMIN 500 MG TABLET PO SCH ×2 (08:14→16:32)
[2019-02-24] MEDS: sitaGLIPtin 100 MG TABLET PO SCH (08:14)
[2019-02-24] MEDS: LISINOPRIL 5 MG TABLET PO SCH (08:14)
[2019-02-24] MEDS: ASPIRIN EC 325 MG TABLET PO SCH (08:14)
[2019-02-24] MEDS: PANTOPRAZOLE 40 MG TABLET PO SCH (08:14)
[2019-02-24] MEDS: DUTASTERIDE 0.5 MG CAPSULE PO SCH (08:14)
[2019-02-24] MEDS: ARIPiprazole 5 MG TABLET PO SCH (08:14)
[2019-02-24] MEDS: MAGNESIUM OXIDE 400 MG TABLET PO SCH ×2 (08:15→21:41)
[2019-02-24] MEDS: CIPROFLOXACIN 500 MG TABLET PO SCH ×2 (08:15→21:41)
[2019-02-24] MEDS: TAMSULOSIN 0.4 MG CAPSULE PO SCH ×2 (08:15→21:41)
[2019-02-24] MEDS: CARVEDILOL 3.125 MG TABLET PO SCH ×2 (08:15→16:32)
[2019-02-24] MEDS: DOCUSATE SODIUM 100 MG CAPSULE PO SCH ×2 (08:15→21:41)
[2019-02-24] MEDS: FLUTICASONE 50 MCG NASAL SPRAY 16 GM BOTTLE BOTH NARES SCH (08:18)
[2019-02-24] MEDS: INSULIN LISPRO 100 UNIT/ML SUBCUT SCH ×4 (08:18→21:41)
[2019-02-24] MEDS: NYSTATIN CREAM 15 GM TUBE TOP SCH ×2 (08:18→21:41)
[2019-02-24] MEDS: NICOTINE 21 MG/24 HR PATCH TRANSDERM SCH (08:20)
[2019-02-24] MEDS: ENOXAPARIN 30 MG/0.3 ML SYRINGE SUBCUT SCH (12:03)
[2019-02-24] MEDS ORDERED: CEFEPIME 1,000 MG VIAL IM SCH (15:30)
[2019-02-24] MEDS: CEFEPIME 1,000 MG in SYRINGE 1 EACH IV SCH (16:32)
[2019-02-24] MEDS: traZODone 50 MG TABLET PO PRN (21:40)
[2019-02-24] MEDS: SENNA 8.6 MG TABLET PO SCH (21:41)
[2019-02-24] MEDS: ATORVASTATIN 40 MG TABLET PO SCH (21:41)
[2019-02-25 05:23] LABS: Basophils # 0.1 10*3/uL (0.0-0.2); Basophils % 0.7 % (0.0-0.8); Eosinophils # 0.4 10*3/uL (0.0-0.87); Hematocrit 33.7 VOL% (42.0-52.0); Immature Granulocytes % 0.3 %; Immature Granulocytes Absolute 0.02 #; Lymphocytes # 1.7 10*3/uL (1.4-4.0); Lymphocytes % 25.3 % (21.2-54.2); Mean Corpuscular HGB Conc 32.6 GM/DL (32-36); Mean Corpuscular Volume 85.8 FL (87-102); Mean Platelet Volume 10.3 FL (9.6-12.0); Monocytes % 7.6 % (1.7-12.7); Neutrophils % 60.1 % (38.7-73.9); Platelet Count 163 T/CUMM (130-400); Red Blood Count 3.93 MC/CUMM (3.8-5.5); White Blood Count 6.7 T/CUMM (4-12)
[2019-02-25] MEDS: CEFEPIME 1,000 MG in SYRINGE 1 EACH IV SCH ×2 (05:53→17:00)
[2019-02-25 05:58] LABS: Calcium 9.4 MG/DL (8.5-10.1); Osmolality,Calculated 281.5 MOS/KG (273-304)
[2019-02-25] MEDS: INSULIN LISPRO 100 UNIT/ML SUBCUT SCH ×4 (07:37→20:56)
[2019-02-25] MEDS: DULoxetine 30 MG CAPSULE PO SCH (08:30)
[2019-02-25] MEDS: LISINOPRIL 5 MG TABLET PO SCH (08:30)
[2019-02-25] MEDS: DUTASTERIDE 0.5 MG CAPSULE PO SCH (08:30)
[2019-02-25] MEDS: metFORMIN 500 MG TABLET PO SCH ×2 (08:30→16:59)
[2019-02-25] MEDS: DOCUSATE SODIUM 100 MG CAPSULE PO SCH ×2 (08:31→20:55)
[2019-02-25] MEDS: TAMSULOSIN 0.4 MG CAPSULE PO SCH ×2 (08:31→20:56)
[2019-02-25] MEDS: sitaGLIPtin 100 MG TABLET PO SCH (08:31)
[2019-02-25] MEDS: CIPROFLOXACIN 500 MG TABLET PO SCH ×2 (08:31→20:55)
[2019-02-25] MEDS: CARVEDILOL 3.125 MG TABLET PO SCH ×2 (08:31→16:59)
[2019-02-25] MEDS: ASPIRIN EC 325 MG TABLET PO SCH (08:32)
[2019-02-25] MEDS: FLUTICASONE 50 MCG NASAL SPRAY 16 GM BOTTLE BOTH NARES SCH (08:32)
[2019-02-25] MEDS: MAGNESIUM OXIDE 400 MG TABLET PO SCH ×2 (08:32→20:55)
[2019-02-25] MEDS: PANTOPRAZOLE 40 MG TABLET PO SCH (08:32)
[2019-02-25 08:33] LABS: Eosinophils 3 % (0-10); Lymphocytes 27 % (20-55); Segmented Neutrophils 59 % (50-85); Total Cells Counted 100
[2019-02-25] MEDS: NICOTINE 21 MG/24 HR PATCH TRANSDERM SCH (08:34)
[2019-02-25 08:35] LABS: Anisocytosis 1+; Hypochromasia Slight; Platelet Estimate Normal
[2019-02-25] MEDS: NYSTATIN CREAM 15 GM TUBE TOP SCH ×2 (08:35→20:56)
[2019-02-25] MEDS: ARIPiprazole 5 MG TABLET PO SCH (08:35)
[2019-02-25] MEDS: ENOXAPARIN 30 MG/0.3 ML SYRINGE SUBCUT SCH (12:26)
[2019-02-25] MEDS: GABAPENTIN 600 MG TABLET PO PRN (20:54)
[2019-02-25] MEDS: SENNA 8.6 MG TABLET PO SCH (20:55)
[2019-02-25] MEDS: ATORVASTATIN 40 MG TABLET PO SCH (20:55)
[2019-02-25] MEDS: traZODone 50 MG TABLET PO PRN (21:00)
[2019-02-26 04:17] LABS: Basophils # 0.1 10*3/uL (0.0-0.2); Basophils % 0.8 % (0.0-0.8); Eosinophils # 0.4 10*3/uL (0.0-0.87); Eosinophils % 5.9 % (0.00-10.9); Hematocrit 33.1 VOL% (42.0-52.0); Hemoglobin 10.6 GM/DL (14.0-18.0); Immature Granulocytes % 0.4 %; Immature Granulocytes Absolute 0.03 #; Lymphocytes # 1.9 10*3/uL (1.4-4.0); Lymphocytes % 27.2 % (21.2-54.2); Mean Corpuscular Volume 86.9 FL (87-102); Mean Platelet Volume 10.7 FL (9.6-12.0); Monocytes % 8.8 % (1.7-12.7); Neutrophils % 56.9 % (38.7-73.9); Platelet Count 153 T/CUMM (130-400); Red Blood Count 3.81 MC/CUMM (3.8-5.5); White Blood Count 7.1 T/CUMM (4-12)
[2019-02-26 04:38] LABS: Calcium 9.3 MG/DL (8.5-10.1); Osmolality,Calculated 282.5 MOS/KG (273-304)
[2019-02-26] MEDS: CEFEPIME 1,000 MG in SYRINGE 1 EACH IV SCH ×2 (05:38→17:36)
[2019-02-26] MEDS: INSULIN LISPRO 100 UNIT/ML SUBCUT SCH ×4 (08:06→20:46)
[2019-02-26] MEDS: LISINOPRIL 5 MG TABLET PO SCH (08:33)
[2019-02-26] MEDS: metFORMIN 500 MG TABLET PO SCH ×2 (08:33→17:35)
[2019-02-26] MEDS: ARIPiprazole 5 MG TABLET PO SCH (08:33)
[2019-02-26] MEDS: DULoxetine 30 MG CAPSULE PO SCH (08:33)
[2019-02-26] MEDS: DUTASTERIDE 0.5 MG CAPSULE PO SCH (08:34)
[2019-02-26] MEDS: CARVEDILOL 3.125 MG TABLET PO SCH ×2 (08:34→17:35)
[2019-02-26] MEDS: TAMSULOSIN 0.4 MG CAPSULE PO SCH ×2 (08:34→20:46)
[2019-02-26] MEDS: sitaGLIPtin 100 MG TABLET PO SCH (08:34)
[2019-02-26] MEDS: MAGNESIUM OXIDE 400 MG TABLET PO SCH ×2 (08:34→20:45)
[2019-02-26] MEDS: ASPIRIN EC 325 MG TABLET PO SCH (08:34)
[2019-02-26] MEDS: PANTOPRAZOLE 40 MG TABLET PO SCH (08:35)
[2019-02-26] MEDS: DOCUSATE SODIUM 100 MG CAPSULE PO SCH ×2 (08:35→20:45)
[2019-02-26] MEDS: NICOTINE 21 MG/24 HR PATCH TRANSDERM SCH (08:36)
[2019-02-26] MEDS: NYSTATIN CREAM 15 GM TUBE TOP SCH ×2 (08:38→20:46)
[2019-02-26] MEDS: FLUTICASONE 50 MCG NASAL SPRAY 16 GM BOTTLE BOTH NARES SCH (08:38)
[2019-02-26] MEDS: ENOXAPARIN 30 MG/0.3 ML SYRINGE SUBCUT SCH (12:40)
[2019-02-26] MEDS: ATORVASTATIN 40 MG TABLET PO SCH (20:45)
[2019-02-26] MEDS: SENNA 8.6 MG TABLET PO SCH (20:45)
[2019-02-26] MEDS: traZODone 50 MG TABLET PO PRN (20:45)
[2019-02-26] MEDS: GABAPENTIN 600 MG TABLET PO PRN (20:45)
[2019-02-27] MEDS: CEFEPIME 1,000 MG in SYRINGE 1 EACH IV SCH ×2 (05:03→18:28)
[2019-02-27] MEDS ORDERED: GLUCAGON 1 MG VIAL IM PRN (06:15)
[2019-02-27] MEDS ORDERED: DEXTROSE 50% 25 GM/50 ML VIAL IV PRN (06:15)
[2019-02-27 06:46] LABS: ABG Base Excess 4.6 MMOL/L (-2.5-2.5); ABG HCO3 28.3 MMOL/L (20-26); ABG Oxygen Saturation 86.6 % (95-100); ABG PCO2 45.7 MM HG (35-48); ABG PH 7.421 (7.35-7.45); ABG PO2 52.5 MM HG (80-95); ABG TCO2 26.7 MMOL/L (23-27); Allen Test Positive; Pt O2 Delivery Device Room Air
[2019-02-27] MEDS ORDERED: LACTATED RINGERS 1,000 ML IV SCH (08:30)
[2019-02-27] MEDS: INSULIN LISPRO 100 UNIT/ML SUBCUT SCH ×4 (08:42→21:51)
[2019-02-27] MEDS: metFORMIN 500 MG TABLET PO SCH ×2 (09:58→17:35)
[2019-02-27] MEDS: NICOTINE 21 MG/24 HR PATCH TRANSDERM SCH (09:58)
[2019-02-27] MEDS: ASPIRIN EC 325 MG TABLET PO SCH (09:59)
[2019-02-27] MEDS: DULoxetine 30 MG CAPSULE PO SCH (09:59)
[2019-02-27] MEDS: MAGNESIUM OXIDE 400 MG TABLET PO SCH ×2 (09:59→21:52)
[2019-02-27] MEDS: PANTOPRAZOLE 40 MG TABLET PO SCH (09:59)
[2019-02-27] MEDS: CARVEDILOL 3.125 MG TABLET PO SCH ×2 (09:59→17:35)
[2019-02-27] MEDS: sitaGLIPtin 100 MG TABLET PO SCH (09:59)
[2019-02-27] MEDS: LISINOPRIL 5 MG TABLET PO SCH (09:59)
[2019-02-27] MEDS: DUTASTERIDE 0.5 MG CAPSULE PO SCH (10:00)
[2019-02-27] MEDS: DOCUSATE SODIUM 100 MG CAPSULE PO SCH ×2 (10:00→21:52)
[2019-02-27] MEDS: TAMSULOSIN 0.4 MG CAPSULE PO SCH ×2 (10:00→21:51)
[2019-02-27] MEDS: ARIPiprazole 5 MG TABLET PO SCH (10:00)
[2019-02-27] MEDS: FLUTICASONE 50 MCG NASAL SPRAY 16 GM BOTTLE BOTH NARES SCH (10:05)
[2019-02-27] MEDS: NYSTATIN CREAM 15 GM TUBE TOP SCH ×2 (10:05→21:52)
[2019-02-27] MEDS: CHLORHEXIDINE 0.12% ORAL RINSE 60 ML BOTTLE SWISH/SPIT SCH ×2 (10:05→21:52)
[2019-02-27] MEDS: ENOXAPARIN 30 MG/0.3 ML SYRINGE SUBCUT SCH (13:54)
[2019-02-27] MEDS: CHLORHEXIDINE 4% SOLN 118 ML BOTTLE TOP SCH ×2 (16:17→21:52)
[2019-02-27] MEDS: SODIUM CHLORIDE 0.9% 1,000 ML IV SCH (18:11)
[2019-02-27] MEDS ORDERED: MAGNESIUM SULF RIDER 2 GM in PREMIX 1 EACH IV ONE (21:19)
[2019-02-27] MEDS: ATORVASTATIN 40 MG TABLET PO SCH (21:51)
[2019-02-27] MEDS: traZODone 50 MG TABLET PO PRN (21:51)
[2019-02-27] MEDS: SENNA 8.6 MG TABLET PO SCH (21:54)
[2019-02-28 02:02] LABS: Calcium 8.9 MG/DL (8.5-10.1); Osmolality,Calculated 279.5 MOS/KG (273-304)
[2019-02-28] MEDS ORDERED: PAPAVERINE 60 MG/2 ML VIAL ONE (04:24)
[2019-02-28] MEDS ORDERED: VANCOMYCIN 1,000 MG VIAL ONE (04:25)
[2019-02-28] MEDS ORDERED: CEFUROXIME INJ 1,500 MG in SYRINGE 1 EACH IV ONE (05:00)
[2019-02-28] MEDS ORDERED: SODIUM CHLORIDE 0.9% 0 ML IV ONE (05:05)
[2019-02-28] MEDS: CEFEPIME 1,000 MG in SYRINGE 1 EACH IV SCH (05:18)
[2019-02-28] MEDS ORDERED: DIAZEPAM 5 MG TABLET PO ONE (05:30)
[2019-02-28] MEDS ORDERED: PANTOPRAZOLE 40 MG TABLET PO ONE (05:30)
[2019-02-28] MEDS ORDERED: ALBUTEROL 2.5 MG/3 ML NEB RESP TX ONE (05:30)
[2019-02-28] MEDS: CARVEDILOL 3.125 MG TABLET PO SCH ×2 (05:37→11:03)
[2019-02-28] MEDS: LISINOPRIL 5 MG TABLET PO SCH ×2 (05:38→11:06)
[2019-02-28] MEDS: CHLORHEXIDINE 4% SOLN 118 ML BOTTLE TOP SCH ×2 (05:38→11:05)
[2019-02-28] MEDS ORDERED: SUFentanil 250 MCG/5 ML AMP ONE (05:43)
[2019-02-28] MEDS ORDERED: CALCIUM CHLORIDE 1,000 MG/10 ML VIAL IV ONE (05:43)
[2019-02-28] MEDS ORDERED: MIDAZOLAM 10 MG/2 ML VIAL ONE (05:43)
[2019-02-28] MEDS ORDERED: HEPARIN/NACL 0.9% 2 UNITS/ML 500 ML IV ONE (05:43)
[2019-02-28] MEDS ORDERED: PHENYLEPHRINE DRIP 20 MG/250 ML PREMIX IV ONE (05:43)
[2019-02-28] MEDS ORDERED: MINERAL OIL/PETROLATUM OPH OINT 3.5 GM TUBE ONE (05:44)
[2019-02-28] MEDS ORDERED: AMINOCAPROIC ACID 5,000 MG/20 ML VIAL ONE (05:44)
[2019-02-28] MEDS ORDERED: SODIUM CHLORIDE 0.9% 250 ML IV ONE (05:44)
[2019-02-28] MEDS ORDERED: VECURONIUM 10 MG VIAL IV ONE (05:44)
[2019-02-28] MEDS ORDERED: ePHEDrine 50 MG/ML AMP ONE (05:44)
[2019-02-28] MEDS ORDERED: ETOMIDATE 40 MG/20 ML VIAL IV ONE (05:44)
[2019-02-28] MEDS ORDERED: NITROGLYCERIN DRIP 50 MG/250 ML BOTTLE IV ONE (05:44)
[2019-02-28] MEDS ORDERED: SODIUM CHLORIDE 0.9% 1,000 ML IV ONE (05:44)
[2019-02-28] MEDS ORDERED: LACTATED RINGERS 1,000 ML IV ONE (05:44)
[2019-02-28 07:38] LABS: ABG Base Excess 1.8 MMOL/L (-2.5-2.5); ABG Oxygen Saturation 99.6 % (95-100); ABG PCO2 42.4 MM HG (35-48); ABG PH 7.407 (7.35-7.45); ABG TCO2 24.1 MMOL/L (23-27); Glucose Heart Surgery 150 MG/DL (74-106); Hematocrit Heart Surgery 32.2 PERCENT (42-52); Hemoglobin Heart Surgery 10.4 G/DL (14.0-18.0); Ionized Calcium Arterial 1.19 MMOL/L (1.21-1.46); PCO2 Patient Temp Arterial 42.4 MMHG; PH Patient Temp Arterial 7.407; Patient Temperature 37 CELCIUS; Potassium Heart/CVR 3.9 MMOL/L (3.5-5.1); Sodium Heart/CVR 137 MMOL/L (135-145)
[2019-02-28 08:09] LABS: Apearance,Urine CLEAR (Clear); Bilirubin,Urine Negative (Negative); Blood, Urine Negative (Negative); Glucose,Urine (UA) Negative (Negative); Ketones,Urine Negative (Negative); Mucus,Urine Occasional /LPF (Occasional); Nitrite,Urine Negative (Negative); Protein,Urine Negative; RBC,Urine 4 /HPF (0-4); Squamous Epithelial Cell,Urine Occasional /HPF (0-10); Urine Color Yellow (Yellow); Urine Specific Gravity 1.016 (1.001-1.035); Urine Urobilinogen < 2.0 EU/DL (0.2-1.0); WBC,Urine 1 /HPF (0-6)
[2019-02-28 09:08] LABS: Hemoglobin Heart Surgery 7.4 G/DL (14.0-18.0); PCO2 Patient Temp Venous 35.9 MM HG; PH Patient Temp Venous 7.486; PO2 Patient Temp Venous 37.3 MM HG; Potassium Heart/CVR 4.6 MMOL/L (3.5-5.1); VBG Base Excess 2.9 MEQ/L (0-4); VBG PCO2 39.2 MMHG (41-51); VBG PH 7.456; VBG PO2 42.9 MMHG (17-40)
[2019-02-28 09:39] LABS: Hematocrit Heart Surgery 24.8 PERCENT (42-52); Hemoglobin Heart Surgery 7.9 G/DL (14.0-18.0); PCO2 Patient Temp Venous 32.3 MM HG; PH Patient Temp Venous 7.523; PO2 Patient Temp Venous 31.4 MM HG; Potassium Heart/CVR 4.3 MMOL/L (3.5-5.1); VBG HCO3 27.7 MEQ/L (24-28); VBG Oxygen Saturation 77.1 %; VBG PCO2 37.4 MMHG (41-51); VBG PH 7.478; VBG PO2 38.8 MMHG (17-40)
[2019-02-28] MEDS ORDERED: PHENYLEPHRINE DRIP 40 MG/250 ML PREMIX IV ONE (10:19)
[2019-02-28] MEDS ORDERED: POTASSIUM CHLORIDE RIDER 100 ML IV ONE (10:19)
[2019-02-28] MEDS ORDERED: ALBUMIN 5% 12.5 GM/250 ML VIAL IV ONE (10:19)
[2019-02-28] MEDS ORDERED: MANNITOL 100 GM/500 ML BAG IV ONE (10:34)
[2019-02-28] MEDS ORDERED: ALBUMIN 25% 25 GM/100 ML VIAL IV ONE (10:35)
[2019-02-28] MEDS ORDERED: MAGNESIUM SULFATE 5 GM/10 ML VIAL IV ONE (10:35)
[2019-02-28] MEDS ORDERED: SODIUM BICARBONATE 50 MEQ/50 ML VIAL IV ONE (10:35)
[2019-02-28] MEDS ORDERED: HEPARIN 10,000 UNIT/10 ML VIAL ONE (10:35)
[2019-02-28] MEDS ORDERED: DEXTROSE 5% KCL 20 MEQ 20 MEQ/1,000 ML BAG IV ONE (10:35)
[2019-02-28] MEDS ORDERED: PROTAMINE SULFATE 250 MG/25 ML VIAL IV ONE (10:35)
[2019-02-28] MEDS ORDERED: POTASSIUM CHLORIDE 20 MEQ/10 ML VIAL ONE (10:36)
[2019-02-28] MEDS ORDERED: methylPREDNISolone SOD SUC 1,000 MG/8 ML VIAL ONE (10:36)
[2019-02-28] MEDS ORDERED: FUROSEMIDE 20 MG/2 ML VIAL ONE (10:36)
[2019-02-28] MEDS ORDERED: PROTAMINE SULFATE 50 MG/5 ML VIAL IV ONE ×3 (10:36→11:54)
[2019-02-28 10:41] LABS: ABG Base Excess 2.9 MMOL/L (-2.5-2.5); ABG Oxygen Saturation 99.7 % (95-100); ABG PCO2 39.4 MM HG (35-48); ABG PH 7.445 (7.35-7.45); Glucose Heart Surgery 278 MG/DL (74-106); Hematocrit Heart Surgery 26.7 PERCENT (42-52); Hemoglobin Heart Surgery 8.6 G/DL (14.0-18.0); Ionized Calcium Arterial 1.27 MMOL/L (1.21-1.46); PCO2 Patient Temp Arterial 39.4 MMHG; PH Patient Temp Arterial 7.445; Patient Temperature 37 CELCIUS; Potassium Heart/CVR 4.3 MMOL/L (3.5-5.1); Sodium Heart/CVR 134 MMOL/L (135-145)
[2019-02-28] MEDS: INSULIN LISPRO 100 UNIT/ML SUBCUT SCH ×2 (11:03→11:07)
[2019-02-28] MEDS: ARIPiprazole 5 MG TABLET PO SCH (11:03)
[2019-02-28] MEDS: metFORMIN 500 MG TABLET PO SCH (11:03)
[2019-02-28] MEDS: SODIUM CHLORIDE 0.9% 1,000 ML IV SCH (11:03)
[2019-02-28] MEDS: FLUTICASONE 50 MCG NASAL SPRAY 16 GM BOTTLE BOTH NARES SCH (11:04)
[2019-02-28] MEDS: DUTASTERIDE 0.5 MG CAPSULE PO SCH (11:04)
[2019-02-28] MEDS: ASPIRIN EC 325 MG TABLET PO SCH (11:04)
[2019-02-28] MEDS: DULoxetine 30 MG CAPSULE PO SCH (11:04)
[2019-02-28] MEDS: TAMSULOSIN 0.4 MG CAPSULE PO SCH (11:04)
[2019-02-28] MEDS: DOCUSATE SODIUM 100 MG CAPSULE PO SCH (11:04)
[2019-02-28] MEDS: sitaGLIPtin 100 MG TABLET PO SCH (11:05)
[2019-02-28] MEDS: NYSTATIN CREAM 15 GM TUBE TOP SCH (11:05)
[2019-02-28] MEDS: MAGNESIUM OXIDE 400 MG TABLET PO SCH (11:05)
[2019-02-28] MEDS: CHLORHEXIDINE 0.12% ORAL RINSE 60 ML BOTTLE SWISH/SPIT SCH (11:06)
[2019-02-28] MEDS: PANTOPRAZOLE 40 MG TABLET PO SCH (11:06)
[2019-02-28] MEDS: NICOTINE 21 MG/24 HR PATCH TRANSDERM SCH (11:06)
[2019-02-28] MEDS: LACTATED RINGERS 1,000 ML IV PRN ×3 (11:45→16:30)
[2019-02-28] MEDS ORDERED: MIDAZOLAM 2 MG/2 ML VIAL ONE ×2 (11:48→11:57)
[2019-02-28] MEDS ORDERED: SEVOFLURANE 1 UNIT/15 MINUTE INH ONE (11:49)
[2019-02-28] MEDS: MIDAZOLAM 2 MG/2 ML VIAL IV PRN ×2 (11:50→12:00)
[2019-02-28] MEDS ORDERED: MORPHINE 4 MG/1 ML VIAL IV PRN (12:05)
[2019-02-28] MEDS ORDERED: LACTATED RINGERS 250 ML IV PRN (12:05)
[2019-02-28] MEDS ORDERED: DEXTROSE 50% 25 GM/50 ML VIAL IV PRN ×2 (12:05)
[2019-02-28] MEDS ORDERED: ACETAMINOPHEN 650 MG SUPP RECTAL PRN (12:05)
[2019-02-28] MEDS ORDERED: VECURONIUM 10 MG VIAL IV PRN ×2 (12:05)
[2019-02-28] MEDS ORDERED: INSULIN REGULAR 100 UNIT/ML IV PRN (12:05)
[2019-02-28] MEDS ORDERED: INSULIN REGULAR 100 UNIT/ML IV ONE (12:05)
[2019-02-28] MEDS ORDERED: ONDANSETRON 4 MG/2 ML VIAL IV PRN (12:05)
[2019-02-28] MEDS ORDERED: NITROPRUSSIDE 100 MG in DEXTROSE 5% 250 ML IV PRN (12:05)
[2019-02-28] MEDS ORDERED: MAGNESIUM SULF RIDER 4 GM in PREMIX 1 EACH IV PRN (12:05)
[2019-02-28] MEDS ORDERED: PHENYLEPHRINE DRIP 40 MG/250 ML PREMIX IV PRN (12:05)
[2019-02-28] MEDS ORDERED: CALCIUM CHLORIDE 1,000 MG/10 ML SYRINGE IV PRN (12:05)
[2019-02-28] MEDS ORDERED: SODIUM CHLORIDE 0.45% 1,000 ML IV SCH ×2 (12:05)
[2019-02-28] MEDS ORDERED: INSULIN REGULAR DRIP 100 ML IV SCH (12:05)
[2019-02-28] MEDS ORDERED: MAGNESIUM SULF RIDER 2 GM in PREMIX 1 EACH IV PRN (12:05)
[2019-02-28] MEDS ORDERED: MORPHINE 10 MG/1 ML VIAL IV PRN (12:05)
[2019-02-28 12:12] LABS: ABG Base Excess 1.4 MMOL/L (-2.5-2.5); ABG HCO3 25.7 MMOL/L (20-26); ABG PCO2 42.3 MM HG (35-48); ABG PH 7.401 (7.35-7.45); ABG TCO2 24.3 MMOL/L (23-27); Glucose Heart Surgery 246 MG/DL (74-106); Hematocrit Heart Surgery 27.8 PERCENT (42-52); Potassium Heart/CVR 3.6 MMOL/L (3.5-5.1)
[2019-02-28 12:13] LABS: Basophils % 0.4 % (0.0-0.8); Eosinophils # 0.1 10*3/uL (0.0-0.87); Eosinophils % 1.2 % (0.00-10.9); Hematocrit 27.8 VOL% (42.0-52.0); Hemoglobin 8.8 GM/DL (14.0-18.0); Immature Granulocytes % 0.8 %; Immature Granulocytes Absolute 0.07 #; Lymphocytes # 1.1 10*3/uL (1.4-4.0); Lymphocytes % 12.5 % (21.2-54.2); Mean Corpuscular HGB Conc 31.7 GM/DL (32-36); Monocytes % 5.6 % (1.7-12.7); Neutrophils % 79.5 % (38.7-73.9); Platelet Count 131 T/CUMM (130-400); Red Blood Count 3.16 MC/CUMM (3.8-5.5); White Blood Count 9.1 T/CUMM (4-12)
[2019-02-28] MEDS: ALBUMIN 5% 12.5 GM in PREMIX 1 EACH IV PRN ×2 (12:15→13:50)
[2019-02-28] MEDS: MIDAZOLAM 10 MG/2 ML VIAL IV PRN ×3 (12:20→13:20)
[2019-02-28 12:21] LABS: INR 1.3; Partial Thromboplastin Time 26.6 SECS (0-40)
[2019-02-28 12:47] LABS: CKMB % 5.9 %
[2019-02-28 12:51] LABS: Troponin I 3.61 NG/ML (0.00-0.045)
[2019-02-28 12:58] LABS: Albumin 3.4 G/DL (3.4-5.0); Bilirubin,Total 0.6 MG/DL (0.2-1.0); Calcium 9.4 MG/DL (8.5-10.1); Osmolality,Calculated 284.7 MOS/KG (273-304); Total Protein 5.7 G/DL (6.4-8.3)
[2019-02-28] MEDS: POTASSIUM CHLORIDE RIDER 20 MEQ in PREMIX 1 EACH IV PRN ×4 (13:00→20:37)
[2019-02-28] MEDS ORDERED: NITROPRUSSIDE 50 MG/2 ML VIAL ONE (13:25)
[2019-02-28] MEDS: KETOROLAC 30 MG/1 ML VIAL IV SCH ×3 (13:30→23:25)
[2019-02-28] MEDS: POTASSIUM CHLORIDE RIDER 10 MEQ in PREMIX 1 EACH IV PRN ×2 (13:30→23:30)
[2019-02-28] MEDS ORDERED: PROPOFOL 1,000 MG/100 ML BOTTLE IV ONE (13:44)
[2019-02-28] MEDS: PROPOFOL 1,000 MG/100 ML BOTTLE IV SCH ×2 (14:00→20:49)
[2019-02-28 14:19] LABS: ABG Base Excess -0.2 MMOL/L (-2.5-2.5); ABG HCO3 24.3 MMOL/L (20-26); ABG Oxygen Saturation 99.1 % (95-100); ABG PCO2 44.8 MM HG (35-48); ABG PH 7.362 (7.35-7.45); ABG TCO2 23.2 MMOL/L (23-27); Glucose Heart Surgery 239 MG/DL (74-106); Hematocrit Heart Surgery 31.5 PERCENT (42-52); Hemoglobin Heart Surgery 10.2 G/DL (14.0-18.0); Potassium Heart/CVR 4.1 MMOL/L (3.5-5.1)
[2019-02-28 17:10] LABS: ABG Base Excess 0.2 MMOL/L (-2.5-2.5); ABG HCO3 24.7 MMOL/L (20-26); ABG Oxygen Saturation 98.7 % (95-100); ABG PCO2 43.3 MM HG (35-48); ABG PH 7.379 (7.35-7.45); ABG TCO2 23.1 MMOL/L (23-27); Glucose Heart Surgery 157 MG/DL (74-106); Hemoglobin Heart Surgery 10.7 G/DL (14.0-18.0); Potassium Heart/CVR 4.1 MMOL/L (3.5-5.1)
[2019-02-28] MEDS ORDERED: DEXMEDETOMIDINE 200 MCG in SODIUM CHLORIDE 0.9% 48 ML IV PRN (18:25)
[2019-02-28] MEDS ORDERED: CEFUROXIME INJ 1,500 MG in SYRINGE 1 EACH IV SCH (19:47)
[2019-02-28] MEDS ORDERED: DEXMEDETOMIDINE 400 MCG in SODIUM CHLORIDE 0.9% 96 ML IV PRN (20:00)
[2019-02-28 20:28] LABS: CKMB % 4.3 %
[2019-02-28 20:30] LABS: ABG Base Excess 0.8 MMOL/L (-2.5-2.5); ABG HCO3 25.2 MMOL/L (20-26); ABG Oxygen Saturation 98.7 % (95-100); ABG PCO2 45.3 MM HG (35-48); ABG PH 7.373 (7.35-7.45); Glucose Heart Surgery 109 MG/DL (74-106); Hematocrit Heart Surgery 31.3 PERCENT (42-52); Hemoglobin Heart Surgery 10.1 G/DL (14.0-18.0); Potassium Heart/CVR 4.1 MMOL/L (3.5-5.1)
[2019-02-28 20:33] LABS: Troponin I 3.91 NG/ML (0.00-0.045)
[2019-02-28] MEDS ORDERED: CHLORHEXIDINE 0.12% ORAL RINSE 60 ML BOTTLE SWISH/SPIT SCH (21:00)
[2019-03-01 02:33] LABS: CKMB % 4.4 %
[2019-03-01 02:35] LABS: Troponin I 4.07 NG/ML (0.00-0.045)
[2019-03-01] MEDS: POTASSIUM CHLORIDE RIDER 10 MEQ in PREMIX 1 EACH IV PRN ×2 (02:49→05:55)
[2019-03-01 03:50] LABS: ABG Base Excess 0.8 MMOL/L (-2.5-2.5); ABG HCO3 25.1 MMOL/L (20-26); ABG PCO2 40.8 MM HG (35-48); ABG PH 7.404 (7.35-7.45); ABG TCO2 22.7 MMOL/L (23-27); Glucose Heart Surgery 125 MG/DL (74-106); Hematocrit Heart Surgery 36.4 PERCENT (42-52); Hemoglobin Heart Surgery 11.8 G/DL (14.0-18.0); Potassium Heart/CVR 4.9 MMOL/L (3.5-5.1)
[2019-03-01 04:00] LABS: Basophils % 0.2 % (0.0-0.8); Hematocrit 29.9 VOL% (42.0-52.0); Hemoglobin 9.9 GM/DL (14.0-18.0); Immature Granulocytes % 0.5 %; Immature Granulocytes Absolute 0.06 #; Lymphocytes # 0.9 10*3/uL (1.4-4.0); Lymphocytes % 6.5 % (21.2-54.2); Mean Corpuscular HGB Conc 33.1 GM/DL (32-36); Mean Corpuscular Volume 84.7 FL (87-102); Monocytes % 7.5 % (1.7-12.7); Neutrophils % 85.3 % (38.7-73.9); Platelet Count 116 T/CUMM (130-400); Red Blood Count 3.53 MC/CUMM (3.8-5.5); Red Cell Distribution Width 14.5 % (9.3-17.3); White Blood Count 13.3 T/CUMM (4-12)
[2019-03-01 04:21] LABS: Alanine Aminotransferase 79 U/L (16-61); Albumin 3.4 G/DL (3.4-5.0); Alkaline Phosphatase 37 U/L (45-117); Aspartate Amino Transferase 93 U/L (0-37); Bilirubin,Direct < 0.100 MG/DL (0.0-0.20); Blood Urea Nitrogen 23 MG/DL (7-18); Calcium 9.1 MG/DL (8.5-10.1); Glucose 109 MG/DL (74-106); Osmolality,Calculated 281.5 MOS/KG (273-304); Total Protein 5.6 G/DL (6.4-8.3)
[2019-03-01 04:23] LABS: CKMB % 4.4 %
[2019-03-01 04:26] LABS: Troponin I 4.68 NG/ML (0.00-0.045)
[2019-03-01 04:40] LABS: ABG HCO3 24.4 MMOL/L (20-26); ABG Oxygen Saturation 98.9 % (95-100); ABG PH 7.391 (7.35-7.45); ABG TCO2 22.6 MMOL/L (23-27); Glucose Heart Surgery 120 MG/DL (74-106); Hematocrit Heart Surgery 31.1 PERCENT (42-52); Hemoglobin Heart Surgery 10.1 G/DL (14.0-18.0); Potassium Heart/CVR 4.7 MMOL/L (3.5-5.1)
[2019-03-01 05:29] LABS: ABG Base Excess -0.6 MMOL/L (-2.5-2.5); ABG Oxygen Saturation 98.7 % (95-100); ABG PCO2 44.4 MM HG (35-48); ABG PH 7.361 (7.35-7.45); ABG TCO2 22.2 MMOL/L (23-27); Glucose Heart Surgery 113 MG/DL (74-106); Hematocrit Heart Surgery 38.2 PERCENT (42-52); Hemoglobin Heart Surgery 12.4 G/DL (14.0-18.0); Potassium Heart/CVR 4.5 MMOL/L (3.5-5.1)
[2019-03-01] MEDS ORDERED: FUROSEMIDE 40 MG/4 ML VIAL IV ONE (06:15)
[2019-03-01] MEDS: KETOROLAC 30 MG/1 ML VIAL IV SCH (06:18)
[2019-03-01 06:26] LABS: ABG Base Excess -1.1 MMOL/L (-2.5-2.5); ABG HCO3 23.5 MMOL/L (20-26); ABG Oxygen Saturation 98.2 % (95-100); ABG PCO2 41.8 MM HG (35-48); ABG PH 7.369 (7.35-7.45); Glucose Heart Surgery 100 MG/DL (74-106); Hematocrit Heart Surgery 30.9 PERCENT (42-52); Potassium Heart/CVR 4.8 MMOL/L (3.5-5.1)
[2019-03-01] MEDS ORDERED: GLUCAGON 1 MG VIAL IM PRN ×2 (06:59)
[2019-03-01] MEDS ORDERED: ACETAMINOPHEN 325 MG TABLET PO PRN (06:59)
[2019-03-01] MEDS ORDERED: ALUMINUM/MAGNES/SIMETH MAX STR 30 ML UDCUP PO PRN (06:59)
[2019-03-01] MEDS ORDERED: MAGNESIUM SULF RIDER 4 GM in PREMIX 1 EACH IV PRN (06:59)
[2019-03-01] MEDS ORDERED: ONDANSETRON 4 MG/2 ML VIAL IV PRN (06:59)
[2019-03-01] MEDS ORDERED: MAGNESIUM SULF RIDER 2 GM in PREMIX 1 EACH IV PRN (06:59)
[2019-03-01] MEDS ORDERED: POTASSIUM CHLORIDE 20 MEQ TABLET PO PRN (06:59)
[2019-03-01] MEDS ORDERED: DEXTROSE 50% 25 GM/50 ML VIAL IV PRN ×2 (06:59)
[2019-03-01] MEDS: KETOROLAC 15 MG/1 ML VIAL IV SCH ×3 (07:15→18:11)
[2019-03-01] MEDS: SODIUM CHLOR 0.45% KCL 20 MEQ 20 MEQ/1,000 ML BAG IV SCH (07:44)
[2019-03-01] MEDS: CIPROFLOXACIN 500 MG TABLET PO SCH ×2 (09:28→20:28)
[2019-03-01] MEDS: TAMSULOSIN 0.4 MG CAPSULE PO SCH ×2 (09:28→20:28)
[2019-03-01] MEDS: PANTOPRAZOLE 40 MG TABLET PO SCH (09:28)
[2019-03-01] MEDS: sitaGLIPtin 100 MG TABLET PO SCH (09:29)
[2019-03-01] MEDS: FERROUS SULFATE 325 MG TABLET PO SCH (09:29)
[2019-03-01] MEDS: ATORVASTATIN 40 MG TABLET PO SCH (09:29)
[2019-03-01] MEDS: ASPIRIN EC 325 MG TABLET PO SCH (09:29)
[2019-03-01] MEDS: DOCUSATE SODIUM 100 MG CAPSULE PO SCH (09:29)
[2019-03-01] MEDS: CARVEDILOL 3.125 MG TABLET PO SCH ×2 (09:29→20:28)
[2019-03-01] MEDS: GABAPENTIN 600 MG TABLET PO SCH ×3 (09:29→20:27)
[2019-03-01] MEDS: CHLORHEXIDINE 0.12% ORAL RINSE 60 ML BOTTLE SWISH/SPIT SCH ×2 (09:30→20:29)
[2019-03-01] MEDS: NICOTINE 21 MG/24 HR PATCH TRANSDERM SCH (09:31)
[2019-03-01] MEDS: oxyCODONE/ACETAMINOPHEN 5-325 MG TABLET PO PRN ×3 (10:10→20:32)
[2019-03-01] MEDS: FLUTICASONE 50 MCG NASAL SPRAY 16 GM BOTTLE BOTH NARES SCH (12:32)
[2019-03-01] MEDS: DUTASTERIDE 0.5 MG CAPSULE PO SCH (20:28)
[2019-03-01] MEDS: traZODone 50 MG TABLET PO SCH (20:28)
[2019-03-02] MEDS: ZALEPLON 5 MG CAPSULE PO PRN (00:01)
[2019-03-02] MEDS: KETOROLAC 15 MG/1 ML VIAL IV SCH ×4 (00:05→18:25)
[2019-03-02] MEDS: oxyCODONE/ACETAMINOPHEN 5-325 MG TABLET PO PRN ×3 (03:31→20:53)
[2019-03-02] MEDS ORDERED: FUROSEMIDE 40 MG/4 ML VIAL IV ONE (06:00)
[2019-03-02 06:25] LABS: Basophils # 0.1 10*3/uL (0.0-0.2); Basophils % 0.5 % (0.0-0.8); Eosinophils # 0.1 10*3/uL (0.0-0.87); Eosinophils % 1.3 % (0.00-10.9); Hematocrit 27.1 VOL% (42.0-52.0); Hemoglobin 8.6 GM/DL (14.0-18.0); Immature Granulocytes % 0.7 %; Immature Granulocytes Absolute 0.06 #; Lymphocytes # 1.3 10*3/uL (1.4-4.0); Lymphocytes % 14.3 % (21.2-54.2); Mean Corpuscular HGB Conc 31.7 GM/DL (32-36); Mean Corpuscular Volume 88.9 FL (87-102); Mean Platelet Volume 11.3 FL (9.6-12.0); Monocytes % 10.1 % (1.7-12.7); Neutrophils % 73.1 % (38.7-73.9); Platelet Count 104 T/CUMM (130-400); Red Blood Count 3.05 MC/CUMM (3.8-5.5); Red Cell Distribution Width 14.6 % (9.3-17.3); White Blood Count 9.2 T/CUMM (4-12)
[2019-03-02 06:49] LABS: Albumin 2.8 G/DL (3.4-5.0); Bilirubin,Direct 0.1 MG/DL (0.0-0.20); Bilirubin,Indirect 0.5 MG/DL (0.0-1.0); Bilirubin,Total 0.6 MG/DL (0.2-1.0); CKMB % 1.1 %; Calcium 8.2 MG/DL (8.5-10.1); Osmolality,Calculated 282.8 MOS/KG (273-304); Total Protein 5.4 G/DL (6.4-8.3)
[2019-03-02 06:50] LABS: Troponin I 3.87 NG/ML (0.00-0.045)
[2019-03-02] MEDS: GABAPENTIN 600 MG TABLET PO SCH ×3 (08:45→20:52)
[2019-03-02] MEDS: FLUTICASONE 50 MCG NASAL SPRAY 16 GM BOTTLE BOTH NARES SCH (08:45)
[2019-03-02] MEDS: FERROUS SULFATE 325 MG TABLET PO SCH (08:48)
[2019-03-02] MEDS: PANTOPRAZOLE 40 MG TABLET PO SCH (08:48)
[2019-03-02] MEDS: CARVEDILOL 3.125 MG TABLET PO SCH (08:48)
[2019-03-02] MEDS: CIPROFLOXACIN 500 MG TABLET PO SCH ×2 (08:48→20:52)
[2019-03-02] MEDS: ASPIRIN EC 325 MG TABLET PO SCH (08:48)
[2019-03-02] MEDS: sitaGLIPtin 100 MG TABLET PO SCH (08:49)
[2019-03-02] MEDS: NICOTINE 21 MG/24 HR PATCH TRANSDERM SCH (08:54)
[2019-03-02] MEDS: TAMSULOSIN 0.4 MG CAPSULE PO SCH (09:46)
[2019-03-02] MEDS: DOCUSATE SODIUM 100 MG CAPSULE PO SCH (09:47)
[2019-03-02] MEDS: ATORVASTATIN 40 MG TABLET PO SCH (10:57)
[2019-03-02] MEDS: CHLORHEXIDINE 0.12% ORAL RINSE 60 ML BOTTLE SWISH/SPIT SCH ×2 (10:58→22:52)
[2019-03-02] MEDS ORDERED: TUBERCULIN SKIN TEST 0.1 ML SYRINGE INTRADERM ONE (14:37)
[2019-03-02] MEDS: DULoxetine 30 MG CAPSULE PO SCH (15:41)
[2019-03-02] MEDS: ARIPiprazole 5 MG TABLET PO SCH (17:44)
[2019-03-02] MEDS: DUTASTERIDE 0.5 MG CAPSULE PO SCH (20:52)
[2019-03-02] MEDS: CAPTOPRIL 6.25 MG TABLET PO SCH (20:52)
[2019-03-02] MEDS: INSULIN REGULAR 100 UNIT/ML SUBCUT SCH (20:52)
[2019-03-02] MEDS: CARVEDILOL 6.25 MG TABLET PO SCH (20:53)
[2019-03-02] MEDS: traZODone 50 MG TABLET PO SCH (20:56)
[2019-03-03] MEDS: KETOROLAC 15 MG/1 ML VIAL IV SCH ×4 (00:11→18:36)
[2019-03-03] MEDS: oxyCODONE/ACETAMINOPHEN 5-325 MG TABLET PO PRN ×3 (01:36→21:05)
[2019-03-03 05:18] LABS: Basophils % 0.4 % (0.0-0.8); Eosinophils # 0.3 10*3/uL (0.0-0.87); Eosinophils % 3.7 % (0.00-10.9); Hematocrit 26.8 VOL% (42.0-52.0); Hemoglobin 8.5 GM/DL (14.0-18.0); Immature Granulocytes % 0.9 %; Immature Granulocytes Absolute 0.08 #; Lymphocytes # 1.8 10*3/uL (1.4-4.0); Lymphocytes % 20.4 % (21.2-54.2); Mean Corpuscular HGB Conc 31.7 GM/DL (32-36); Mean Corpuscular Volume 88.7 FL (87-102); Mean Platelet Volume 11.9 FL (9.6-12.0); Monocytes % 9.1 % (1.7-12.7); Neutrophils % 65.5 % (38.7-73.9); Platelet Count 105 T/CUMM (130-400); Red Blood Count 3.02 MC/CUMM (3.8-5.5); Red Cell Distribution Width 14.1 % (9.3-17.3); White Blood Count 8.9 T/CUMM (4-12)
[2019-03-03 05:49] LABS: Alanine Aminotransferase 46 U/L (16-61); Albumin 2.5 G/DL (3.4-5.0); Alkaline Phosphatase 33 U/L (45-117); Aspartate Amino Transferase 36 U/L (0-37); Bilirubin,Direct < 0.100 MG/DL (0.0-0.20); Bilirubin,Indirect 0.7 MG/DL (0.0-1.0); Blood Urea Nitrogen 29 MG/DL (7-18); Calcium 8.2 MG/DL (8.5-10.1); Glucose 190 MG/DL (74-106); Osmolality,Calculated 276.4 MOS/KG (273-304); Total Protein 5.3 G/DL (6.4-8.3)
[2019-03-03] MEDS: sitaGLIPtin 100 MG TABLET PO SCH (09:00)
[2019-03-03] MEDS: INSULIN REGULAR 100 UNIT/ML SUBCUT SCH ×4 (09:01→21:05)
[2019-03-03] MEDS: DULoxetine 30 MG CAPSULE PO SCH (09:02)
[2019-03-03] MEDS: GABAPENTIN 600 MG TABLET PO SCH ×3 (09:03→21:05)
[2019-03-03] MEDS: DOCUSATE SODIUM 100 MG CAPSULE PO SCH (09:03)
[2019-03-03] MEDS: FERROUS SULFATE 325 MG TABLET PO SCH (09:03)
[2019-03-03] MEDS: ASPIRIN EC 325 MG TABLET PO SCH (09:03)
[2019-03-03] MEDS: CIPROFLOXACIN 500 MG TABLET PO SCH ×2 (09:03→21:05)
[2019-03-03] MEDS: FUROSEMIDE 20 MG TABLET PO SCH (09:04)
[2019-03-03] MEDS: ATORVASTATIN 40 MG TABLET PO SCH (09:05)
[2019-03-03] MEDS: CARVEDILOL 6.25 MG TABLET PO SCH ×2 (09:05→21:05)
[2019-03-03] MEDS: NICOTINE 21 MG/24 HR PATCH TRANSDERM SCH (09:05)
[2019-03-03] MEDS: ARIPiprazole 5 MG TABLET PO SCH (09:13)
[2019-03-03] MEDS: CAPTOPRIL 6.25 MG TABLET PO SCH (09:13)
[2019-03-03] MEDS: FLUTICASONE 50 MCG NASAL SPRAY 16 GM BOTTLE BOTH NARES SCH (09:15)
[2019-03-03] MEDS: CHLORHEXIDINE 0.12% ORAL RINSE 60 ML BOTTLE SWISH/SPIT SCH ×2 (09:18→21:04)
[2019-03-03] MEDS: TAMSULOSIN 0.4 MG CAPSULE PO SCH (09:18)
[2019-03-03] MEDS: PANTOPRAZOLE 40 MG TABLET PO SCH (09:22)
[2019-03-03] MEDS: MAGNESIUM HYDROXIDE SUSP 30 ML UDCUP PO PRN (11:44)
[2019-03-03] MEDS: SODIUM CHLOR 0.45% KCL 20 MEQ 20 MEQ/1,000 ML BAG IV SCH (18:03)
[2019-03-03] MEDS: DUTASTERIDE 0.5 MG CAPSULE PO SCH (21:05)
[2019-03-03] MEDS: traZODone 50 MG TABLET PO SCH (21:05)
[2019-03-04] MEDS: KETOROLAC 15 MG/1 ML VIAL IV SCH (02:28)
[2019-03-04] MEDS: INSULIN REGULAR 100 UNIT/ML SUBCUT SCH ×4 (08:03→20:34)
[2019-03-04] MEDS: ARIPiprazole 5 MG TABLET PO SCH (09:22)
[2019-03-04] MEDS: CIPROFLOXACIN 500 MG TABLET PO SCH ×2 (09:23→20:35)
[2019-03-04] MEDS: PANTOPRAZOLE 40 MG TABLET PO SCH (09:23)
[2019-03-04] MEDS: CARVEDILOL 6.25 MG TABLET PO SCH ×2 (09:23→20:35)
[2019-03-04] MEDS: FERROUS SULFATE 325 MG TABLET PO SCH (09:24)
[2019-03-04] MEDS: sitaGLIPtin 100 MG TABLET PO SCH (09:24)
[2019-03-04] MEDS: GABAPENTIN 600 MG TABLET PO SCH ×3 (09:24→20:35)
[2019-03-04] MEDS: DOCUSATE SODIUM 100 MG CAPSULE PO SCH (09:24)
[2019-03-04] MEDS: ASPIRIN EC 325 MG TABLET PO SCH (09:24)
[2019-03-04] MEDS: FUROSEMIDE 20 MG TABLET PO SCH (09:24)
[2019-03-04] MEDS: DULoxetine 30 MG CAPSULE PO SCH (09:24)
[2019-03-04] MEDS: NICOTINE 21 MG/24 HR PATCH TRANSDERM SCH (09:25)
[2019-03-04] MEDS: CHLORHEXIDINE 0.12% ORAL RINSE 60 ML BOTTLE SWISH/SPIT SCH ×2 (09:25→20:35)
[2019-03-04] MEDS: TAMSULOSIN 0.4 MG CAPSULE PO SCH (09:25)
[2019-03-04] MEDS: ATORVASTATIN 40 MG TABLET PO SCH (09:25)
[2019-03-04] MEDS: FLUTICASONE 50 MCG NASAL SPRAY 16 GM BOTTLE BOTH NARES SCH (09:27)
[2019-03-04] MEDS: oxyCODONE/ACETAMINOPHEN 5-325 MG TABLET PO PRN (13:23)
[2019-03-04] MEDS: MAGNESIUM HYDROXIDE SUSP 30 ML UDCUP PO PRN (17:54)
[2019-03-04] MEDS: DUTASTERIDE 0.5 MG CAPSULE PO SCH (20:35)
[2019-03-04] MEDS: traZODone 50 MG TABLET PO SCH (20:35)
[2019-03-05] MEDS: oxyCODONE/ACETAMINOPHEN 5-325 MG TABLET PO PRN ×2 (03:45→14:31)
[2019-03-05 05:02] LABS: Basophils % 0.4 % (0.0-0.8); Eosinophils # 0.3 10*3/uL (0.0-0.87); Eosinophils % 4.2 % (0.00-10.9); Hemoglobin 8.5 GM/DL (14.0-18.0); Immature Granulocytes % 0.6 %; Immature Granulocytes Absolute 0.05 #; Lymphocytes # 1.5 10*3/uL (1.4-4.0); Lymphocytes % 18.2 % (21.2-54.2); Mean Corpuscular HGB Conc 32.7 GM/DL (32-36); Mean Corpuscular Volume 86.7 FL (87-102); Mean Platelet Volume 11.9 FL (9.6-12.0); Monocytes % 11.3 % (1.7-12.7); Neutrophils % 65.3 % (38.7-73.9); Platelet Count 158 T/CUMM (130-400); Red Cell Distribution Width 13.5 % (9.3-17.3); White Blood Count 8.1 T/CUMM (4-12)
[2019-03-05 05:31] LABS: Alanine Aminotransferase 41 U/L (16-61); Albumin 2.6 G/DL (3.4-5.0); Alkaline Phosphatase 52 U/L (45-117); Aspartate Amino Transferase 23 U/L (0-37); Bilirubin,Indirect 0.6 MG/DL (0.0-1.0); Blood Urea Nitrogen 24 MG/DL (7-18); Calcium 8.6 MG/DL (8.5-10.1); Glucose 141 MG/DL (74-106); Osmolality,Calculated 280.7 MOS/KG (273-304); Total Protein 5.7 G/DL (6.4-8.3)
[2019-03-05 05:37] LABS: Troponin I 0.686 NG/ML (0.00-0.045)
[2019-03-05] MEDS ORDERED: POLYETHYLENE GLYCOL POWDER 17 GM PACK PO PRN (06:58)
[2019-03-05] MEDS ORDERED: LACTULOSE 20 GM/30 ML UDCUP PO PRN (06:59)
[2019-03-05] MEDS ORDERED: SODIUM PHOSPHATE ENEMA 133 ML BOTTLE RECTAL PRN (07:30)
[2019-03-05] MEDS: INSULIN REGULAR 100 UNIT/ML SUBCUT SCH ×4 (08:03→20:55)
[2019-03-05] MEDS: CIPROFLOXACIN 500 MG TABLET PO SCH ×2 (09:12→20:57)
[2019-03-05] MEDS: ASPIRIN EC 325 MG TABLET PO SCH (09:12)
[2019-03-05] MEDS: ARIPiprazole 5 MG TABLET PO SCH (09:12)
[2019-03-05] MEDS: GABAPENTIN 600 MG TABLET PO SCH ×3 (09:12→20:56)
[2019-03-05] MEDS: TAMSULOSIN 0.4 MG CAPSULE PO SCH (09:12)
[2019-03-05] MEDS: FUROSEMIDE 20 MG TABLET PO SCH (09:12)
[2019-03-05] MEDS: DULoxetine 30 MG CAPSULE PO SCH (09:12)
[2019-03-05] MEDS: CARVEDILOL 6.25 MG TABLET PO SCH ×2 (09:12→20:56)
[2019-03-05] MEDS: sitaGLIPtin 100 MG TABLET PO SCH (09:12)
[2019-03-05] MEDS: FERROUS SULFATE 325 MG TABLET PO SCH (09:12)
[2019-03-05] MEDS: DOCUSATE SODIUM 100 MG CAPSULE PO SCH (09:12)
[2019-03-05] MEDS: NICOTINE 21 MG/24 HR PATCH TRANSDERM SCH (09:13)
[2019-03-05] MEDS: PANTOPRAZOLE 40 MG TABLET PO SCH (09:13)
[2019-03-05] MEDS: ATORVASTATIN 40 MG TABLET PO SCH (09:13)
[2019-03-05] MEDS: FLUTICASONE 50 MCG NASAL SPRAY 16 GM BOTTLE BOTH NARES SCH (09:16)
[2019-03-05] MEDS: CHLORHEXIDINE 0.12% ORAL RINSE 60 ML BOTTLE SWISH/SPIT SCH ×2 (09:16→20:57)
[2019-03-05] MEDS: LOSARTAN 25 MG TABLET PO SCH ×2 (12:49→20:56)
[2019-03-05] MEDS ORDERED: MAGNESIUM CITRATE 300 ML BOTTLE PO ONE (12:50)
[2019-03-05] MEDS: traZODone 50 MG TABLET PO SCH (20:56)
[2019-03-05] MEDS: DUTASTERIDE 0.5 MG CAPSULE PO SCH (20:57)
[2019-03-05] MEDS ORDERED: KETOROLAC 15 MG/1 ML VIAL IV PRN (23:14)
[2019-03-05] MEDS: ZALEPLON 5 MG CAPSULE PO PRN (23:23)
[2019-03-06 04:51] LABS: Basophils # 0.1 10*3/uL (0.0-0.2); Basophils % 0.5 % (0.0-0.8); Eosinophils # 0.3 10*3/uL (0.0-0.87); Eosinophils % 2.9 % (0.00-10.9); Hematocrit 25.1 VOL% (42.0-52.0); Hemoglobin 7.9 GM/DL (14.0-18.0); Immature Granulocytes % 0.6 %; Immature Granulocytes Absolute 0.06 #; Lymphocytes # 1.2 10*3/uL (1.4-4.0); Lymphocytes % 12.4 % (21.2-54.2); Mean Corpuscular HGB Conc 31.5 GM/DL (32-36); Mean Corpuscular Volume 88.1 FL (87-102); Mean Platelet Volume 11.3 FL (9.6-12.0); Monocytes % 9.6 % (1.7-12.7); Platelet Count 158 T/CUMM (130-400); Red Blood Count 2.85 MC/CUMM (3.8-5.5); Red Cell Distribution Width 13.4 % (9.3-17.3); White Blood Count 9.9 T/CUMM (4-12)
[2019-03-06 05:00] LABS: Alanine Aminotransferase 37 U/L (16-61); Albumin 2.4 G/DL (3.4-5.0); Alkaline Phosphatase 48 U/L (45-117); Aspartate Amino Transferase 19 U/L (0-37); Bilirubin,Direct < 0.100 MG/DL (0.0-0.20); Bilirubin,Indirect 0.6 MG/DL (0.0-1.0); Blood Urea Nitrogen 22 MG/DL (7-18); Calcium 8.6 MG/DL (8.5-10.1); Glucose 154 MG/DL (74-106); Total Protein 5.7 G/DL (6.4-8.3); Troponin I 0.551 NG/ML (0.00-0.045)
[2019-03-06 08:29] VITALS: BP 177/74
[2019-03-06] MEDS: DULoxetine 30 MG CAPSULE PO SCH (08:29)
[2019-03-06] MEDS: TAMSULOSIN 0.4 MG CAPSULE PO SCH (08:30)
[2019-03-06] MEDS: sitaGLIPtin 100 MG TABLET PO SCH (08:30)
[2019-03-06] MEDS: LOSARTAN 25 MG TABLET PO SCH (08:30)
[2019-03-06] MEDS: PANTOPRAZOLE 40 MG TABLET PO SCH (08:30)
[2019-03-06] MEDS: FERROUS SULFATE 325 MG TABLET PO SCH (08:30)
[2019-03-06] MEDS: GABAPENTIN 600 MG TABLET PO SCH (08:30)
[2019-03-06] MEDS: ASPIRIN EC 325 MG TABLET PO SCH (08:30)
[2019-03-06] MEDS: ATORVASTATIN 40 MG TABLET PO SCH (08:30)
[2019-03-06] MEDS: FUROSEMIDE 20 MG TABLET PO SCH (08:30)
[2019-03-06] MEDS: CIPROFLOXACIN 500 MG TABLET PO SCH (08:30)
[2019-03-06] MEDS: CARVEDILOL 6.25 MG TABLET PO SCH (08:30)
[2019-03-06] MEDS: ARIPiprazole 5 MG TABLET PO SCH (08:34)
[2019-03-06] MEDS: INSULIN REGULAR 100 UNIT/ML SUBCUT SCH (08:34)
[2019-03-06] MEDS: DOCUSATE SODIUM 100 MG CAPSULE PO SCH (09:33)
[2019-03-06] MEDS: FLUTICASONE 50 MCG NASAL SPRAY 16 GM BOTTLE BOTH NARES SCH (09:33)
[2019-03-06] MEDS: CHLORHEXIDINE 0.12% ORAL RINSE 60 ML BOTTLE SWISH/SPIT SCH (09:33)
[2019-03-06] MEDS: NICOTINE 21 MG/24 HR PATCH TRANSDERM SCH (09:33)
== END 2019-03-06 12:18 | disposition swing bed (61) | DRG 236 ==
LOC: EDUNIT# → EDBD → N.ED 15:43 → N.EDINP 15:43 → N.TELES 18:15 → N.CVR 02-28 09:20 → N.TELES 03-01 07:39
PROVIDERS: ADMIT Family Medicine; ATTEND Family Medicine
PROC: CLCCHCL (ICD-10-PCS; 2019-02-22 15:45)

== ENCOUNTER 2019-06-30 19:37 | Inpatient (IN) ==
[2019-06-30 20:00] LABS: Basophils # 0.1 10*3/uL (0.0-0.2); Basophils % 0.7 % (0.0-0.8); Eosinophils # 0.5 10*3/uL (0.0-0.87); Eosinophils % 5.1 % (0.00-10.9); Hematocrit 35.5 VOL% (42.0-52.0); Hemoglobin 11.4 GM/DL (14.0-18.0); Immature Granulocytes % 0.6 %; Immature Granulocytes Absolute 0.06 #; Lymphocytes # 2.6 10*3/uL (1.4-4.0); Lymphocytes % 27.4 % (21.2-54.2); Mean Corpuscular HGB Conc 32.1 GM/DL (32-36); Mean Corpuscular Volume 83.9 FL (87-102); Mean Platelet Volume 10.6 FL (9.6-12.0); Monocytes % 5.8 % (1.7-12.7); Neutrophils % 60.4 % (38.7-73.9); Platelet Count 174 T/CUMM (130-400); Red Blood Count 4.23 MC/CUMM (3.8-5.5); Red Cell Distribution Width 14.4 % (9.3-17.3); White Blood Count 9.4 T/CUMM (4-12)
[2019-06-30 20:23] LABS: Calcium 8.4 MG/DL (8.5-10.1); Osmolality,Calculated 284.7 MOS/KG (273-304)
[2019-06-30 20:40] LABS: Apearance,Urine Slightly Hazy (Clear); Bacteria,Urine Many /HPF (Few); Bilirubin,Urine Negative (Negative); Blood, Urine Negative (Negative); Glucose,Urine (UA) Negative (Negative); Hyaline Casts,Urine 4 /LPF (0-3); Ketones,Urine Negative (Negative); Mucus,Urine Occasional /LPF (Occasional); Nitrite,Urine Positive (Negative); Protein,Urine Negative; RBC,Urine 12 /HPF (0-4); Urine Color Yellow (Yellow); Urine Specific Gravity 1.015 (1.001-1.035); Urine Urobilinogen < 2.0 EU/DL (0.2-1.0); WBC,Urine 94 /HPF (0-6)
[2019-06-30] MEDS ORDERED: cefTRIAXone 1,000 MG in SODIUM CHLORIDE 0.9% 100 ML IV STA (20:47)
[2019-06-30] MEDS ORDERED: LACTATED RINGERS 1,000 ML IV ONE (21:49)
[2019-06-30] MEDS ORDERED: ONDANSETRON 4 MG/2 ML VIAL IV PRN (22:17)
[2019-06-30] MEDS ORDERED: GLUCAGON 1 MG VIAL IM PRN (22:17)
[2019-06-30] MEDS ORDERED: ACETAMINOPHEN 325 MG TABLET PO PRN (22:17)
[2019-06-30] MEDS ORDERED: DEXTROSE 50% 25 GM/50 ML VIAL IV PRN (22:17)
[2019-06-30] MEDS ORDERED: LACTATED RINGERS 1,000 ML IV SCH (22:30)
[2019-07-01] MEDS: LACTATED RINGERS 1,000 ML IV SCH ×2 (01:38→16:28)
[2019-07-01 06:06] LABS: Basophils # 0.1 10*3/uL (0.0-0.2); Basophils % 0.9 % (0.0-0.8); Eosinophils # 0.5 10*3/uL (0.0-0.87); Eosinophils % 6.2 % (0.00-10.9); Hematocrit 35.7 VOL% (42.0-52.0); Hemoglobin 11.4 GM/DL (14.0-18.0); Immature Granulocytes % 0.5 %; Immature Granulocytes Absolute 0.04 #; Lymphocytes # 2.5 10*3/uL (1.4-4.0); Lymphocytes % 33.3 % (21.2-54.2); Mean Corpuscular HGB Conc 31.9 GM/DL (32-36); Mean Corpuscular Volume 84.2 FL (87-102); Mean Platelet Volume 11.3 FL (9.6-12.0); Monocytes % 7.4 % (1.7-12.7); Neutrophils % 51.7 % (38.7-73.9); Platelet Count 156 T/CUMM (130-400); Red Blood Count 4.24 MC/CUMM (3.8-5.5); Red Cell Distribution Width 14.5 % (9.3-17.3); White Blood Count 7.4 T/CUMM (4-12)
[2019-07-01 06:26] LABS: Calcium 8.7 MG/DL (8.5-10.1); Osmolality,Calculated 284.1 MOS/KG (273-304)
[2019-07-01] MEDS: DOCUSATE SODIUM 100 MG CAPSULE PO SCH ×2 (09:00→20:09)
[2019-07-01] MEDS: PANTOPRAZOLE 40 MG TABLET PO SCH (09:00)
[2019-07-01] MEDS: LEVOFLOXACIN INJ 750 MG in PREMIX 1 EACH IV SCH (13:46)
[2019-07-01] MEDS: tiZANidine 4 MG TABLET PO SCH ×2 (16:28→20:09)
[2019-07-01] MEDS: INSULIN LISPRO 100 UNIT/ML SUBCUT SCH ×2 (16:31→20:08)
[2019-07-01] MEDS: traZODone 50 MG TABLET PO PRN (20:08)
[2019-07-01] MEDS: DUTASTERIDE 0.5 MG CAPSULE PO SCH (20:09)
[2019-07-01] MEDS: carvediloL 6.25 MG TABLET PO SCH (20:09)
[2019-07-01] MEDS: TAMSULOSIN 0.4 MG CAPSULE PO SCH (20:10)
[2019-07-01] MEDS: ATORVASTATIN 40 MG TABLET PO SCH (20:10)
[2019-07-01] MEDS: TERBINAFINE 1% CREAM 12 GM TUBE TOP SCH (21:41)
[2019-07-02] MEDS: LACTATED RINGERS 1,000 ML IV SCH ×2 (04:15→18:42)
[2019-07-02 04:59] LABS: Basophils # 0.1 10*3/uL (0.0-0.2); Basophils % 0.8 % (0.0-0.8); Eosinophils # 0.4 10*3/uL (0.0-0.87); Eosinophils % 5.3 % (0.00-10.9); Hematocrit 35.7 VOL% (42.0-52.0); Hemoglobin 11.3 GM/DL (14.0-18.0); Immature Granulocytes % 0.5 %; Immature Granulocytes Absolute 0.04 #; Lymphocytes # 2.4 10*3/uL (1.4-4.0); Lymphocytes % 31.2 % (21.2-54.2); Mean Corpuscular HGB Conc 31.7 GM/DL (32-36); Mean Platelet Volume 11.5 FL (9.6-12.0); Monocytes % 8.4 % (1.7-12.7); Neutrophils % 53.8 % (38.7-73.9); Platelet Count 151 T/CUMM (130-400); Red Blood Count 4.25 MC/CUMM (3.8-5.5); Red Cell Distribution Width 14.6 % (9.3-17.3); White Blood Count 7.8 T/CUMM (4-12)
[2019-07-02 05:30] LABS: Albumin 3.2 G/DL (3.4-5.0); Bilirubin,Total 0.5 MG/DL (0.2-1.0); Calcium 9.3 MG/DL (8.5-10.1); Osmolality,Calculated 291.8 MOS/KG (273-304); Risk Ratio 2.4; Total Protein 6.7 G/DL (6.4-8.3); VLDL CHOLESTEROL 12.6 MG/DL
[2019-07-02] MEDS: INSULIN LISPRO 100 UNIT/ML SUBCUT SCH ×4 (09:39→20:03)
[2019-07-02] MEDS: FLUTICASONE 50 MCG NASAL SPRAY 16 GM BOTTLE BOTH NARES SCH (09:40)
[2019-07-02] MEDS: DULoxetine 30 MG CAPSULE PO SCH (09:40)
[2019-07-02] MEDS: DOCUSATE SODIUM 100 MG CAPSULE PO SCH ×2 (09:40→20:03)
[2019-07-02] MEDS: TERBINAFINE 1% CREAM 12 GM TUBE TOP SCH ×2 (09:40→21:48)
[2019-07-02] MEDS: PANTOPRAZOLE 40 MG TABLET PO SCH (09:41)
[2019-07-02] MEDS: LISINOPRIL 10 MG TABLET PO SCH (09:41)
[2019-07-02] MEDS: carvediloL 6.25 MG TABLET PO SCH ×2 (09:41→20:02)
[2019-07-02] MEDS: tiZANidine 4 MG TABLET PO SCH ×3 (09:41→20:03)
[2019-07-02] MEDS: OXcarbazepine 300 MG TABLET PO SCH (09:41)
[2019-07-02] MEDS: TAMSULOSIN 0.4 MG CAPSULE PO SCH ×2 (09:41→20:03)
[2019-07-02] MEDS: GABAPENTIN 600 MG TABLET PO PRN (09:41)
[2019-07-02] MEDS: ASPIRIN CHEW 81 MG TABLET PO SCH (09:41)
[2019-07-02] MEDS: LINACLOTIDE 145 MCG CAPSULE PO SCH (09:42)
[2019-07-02] MEDS: NICOTINE 21 MG/24 HR PATCH TRANSDERM SCH (09:42)
[2019-07-02] MEDS: ARIPiprazole 5 MG TABLET PO SCH (09:47)
[2019-07-02] MEDS: MAGNESIUM CHLORIDE 64 MG TABLET PO SCH ×2 (09:50→21:49)
[2019-07-02] MEDS: NON-FORMULARY MEDICATION (Ticagrelor [Brilinta] 60 MG) PO SCH (09:50)
[2019-07-02] MEDS: LEVOFLOXACIN INJ 750 MG in PREMIX 1 EACH IV SCH (12:44)
[2019-07-02] MEDS: DUTASTERIDE 0.5 MG CAPSULE PO SCH (20:02)
[2019-07-02] MEDS: traZODone 50 MG TABLET PO PRN (20:03)
[2019-07-02] MEDS: ATORVASTATIN 40 MG TABLET PO SCH (20:03)
[2019-07-03] MEDS: GABAPENTIN 600 MG TABLET PO PRN ×2 (00:36→09:06)
[2019-07-03 05:42] LABS: Basophils # 0.1 10*3/uL (0.0-0.2); Basophils % 0.7 % (0.0-0.8); Eosinophils # 0.5 10*3/uL (0.0-0.87); Eosinophils % 5.3 % (0.00-10.9); Hematocrit 35.3 VOL% (42.0-52.0); Hemoglobin 11.5 GM/DL (14.0-18.0); Immature Granulocytes % 0.4 %; Immature Granulocytes Absolute 0.03 #; Lymphocytes # 2.7 10*3/uL (1.4-4.0); Lymphocytes % 31.4 % (21.2-54.2); Mean Corpuscular HGB Conc 32.6 GM/DL (32-36); Mean Corpuscular Volume 82.9 FL (87-102); Monocytes % 9.5 % (1.7-12.7); Neutrophils % 52.7 % (38.7-73.9); Platelet Count 164 T/CUMM (130-400); Red Blood Count 4.26 MC/CUMM (3.8-5.5); Red Cell Distribution Width 14.6 % (9.3-17.3); White Blood Count 8.5 T/CUMM (4-12)
[2019-07-03] MEDS: INSULIN LISPRO 100 UNIT/ML SUBCUT SCH ×2 (08:56→12:44)
[2019-07-03] MEDS: carvediloL 6.25 MG TABLET PO SCH (08:56)
[2019-07-03] MEDS: tiZANidine 4 MG TABLET PO SCH (08:57)
[2019-07-03] MEDS: DOCUSATE SODIUM 100 MG CAPSULE PO SCH (08:57)
[2019-07-03] MEDS: ASPIRIN CHEW 81 MG TABLET PO SCH (08:57)
[2019-07-03] MEDS: OXcarbazepine 300 MG TABLET PO SCH (08:57)
[2019-07-03] MEDS: MAGNESIUM CHLORIDE 64 MG TABLET PO SCH (08:57)
[2019-07-03] MEDS: LISINOPRIL 10 MG TABLET PO SCH (08:57)
[2019-07-03] MEDS: ARIPiprazole 5 MG TABLET PO SCH (08:57)
[2019-07-03] MEDS: TAMSULOSIN 0.4 MG CAPSULE PO SCH (08:57)
[2019-07-03] MEDS: DULoxetine 30 MG CAPSULE PO SCH (08:57)
[2019-07-03] MEDS: PANTOPRAZOLE 40 MG TABLET PO SCH (08:57)
[2019-07-03] MEDS: TERBINAFINE 1% CREAM 12 GM TUBE TOP SCH (08:58)
[2019-07-03] MEDS: LINACLOTIDE 145 MCG CAPSULE PO SCH (08:58)
[2019-07-03] MEDS: NICOTINE 21 MG/24 HR PATCH TRANSDERM SCH (08:58)
[2019-07-03] MEDS: NON-FORMULARY MEDICATION (Ticagrelor [Brilinta] 60 MG) PO SCH (08:59)
[2019-07-03] MEDS: FLUTICASONE 50 MCG NASAL SPRAY 16 GM BOTTLE BOTH NARES SCH (08:59)
[2019-07-03] MEDS: LACTATED RINGERS 1,000 ML IV SCH (09:32)
[2019-07-03] MEDS: LEVOFLOXACIN INJ 750 MG in PREMIX 1 EACH IV SCH (12:58)
[2019-07-03 14:24] VITALS: BP 97/39
== END 2019-07-03 15:43 | disposition home health service (06) | DRG 690 ==
LOC: N.ED 19:37 → N.EDINP 22:17 → N.5E 22:48
PROVIDERS: ADMIT Family Medicine; ATTEND Family Medicine

== ENCOUNTER 2022-09-26 12:52 | Observation (INO) ==
[2022-09-26] MEDS ORDERED: ONDANSETRON 4 MG/2 ML VIAL IV STA ×2 (13:28→16:27)
[2022-09-26 14:00] LABS: Basophils # 0.1 10*3/uL (0.0-0.2); Basophils % 0.6 % (0.0-0.8); Eosinophils # 0.6 10*3/uL (0.0-0.87); Eosinophils % 5.1 % (0.00-10.9); Hematocrit 25.9 VOL% (42.0-52.0); Hemoglobin 8.8 GM/DL (14.0-18.0); Immature Granulocytes % 1.1 %; Immature Granulocytes Absolute 0.13 #; Lymphocytes # 0.9 10*3/uL (1.4-4.0); Lymphocytes % 7.7 % (21.2-54.2); Mean Corpuscular Volume 85.2 FL (87-102); Monocytes # 0.9 10*3/uL (0.11-0.8); Monocytes % 7.6 % (1.7-12.7); Neutrophils % 77.9 % (38.7-73.9); Platelet Count 210 T/CUMM (130-400); Red Blood Count 3.04 MC/CUMM (3.8-5.5); Red Cell Distribution Width 13.2 % (9.3-17.3); White Blood Count 11.6 T/CUMM (4-12)
[2022-09-26 14:22] LABS: Albumin 3.4 G/DL (3.4-5.0); Bilirubin,Total 0.5 MG/DL (0.20-1.00); Calcium 8.4 MG/DL (8.5-10.1); Osmolality,Calculated 229.2 MOS/KG (273-304); Potassium 4.9 MMOL/L (3.5-5.1); Total Protein 6.4 G/DL (6.4-8.2)
[2022-09-26 14:43] LABS: RBC,Urine 24 /HPF (0-4); Squamous Epithelial Cell,Urine Occasional /HPF (0-10); Urine Appearance Clear (Clear); Urine Color Yellow (Yellow)
[2022-09-26 14:44] LABS: Bilirubin,Urine Negative (Negative); Blood, Urine Small mg/dL (Negative); Glucose,Urine (UA) Negative (Negative); Ketones,Urine Negative (Negative); Nitrite,Urine Negative (Negative); Protein,Urine 30 mg/dL (Negative); Urine Specific Gravity 1.015 (1.001-1.035)
[2022-09-26] MEDS ORDERED: GLUCAGON 1 MG VIAL IM PRN ×3 (15:02→16:50)
[2022-09-26] MEDS ORDERED: ACETAMINOPHEN 325 MG TABLET PO PRN ×2 (15:02→16:50)
[2022-09-26] MEDS ORDERED: guaiFENesin/DM ER 600-30 MG TABLET PO PRN (15:02)
[2022-09-26] MEDS ORDERED: ONDANSETRON 4 MG/2 ML VIAL IV PRN ×2 (15:02→16:50)
[2022-09-26] MEDS ORDERED: DEXTROSE 50% 25 GM/50 ML VIAL IV PRN (15:02)
[2022-09-26] MEDS ORDERED: hydrALAZINE 20 MG/1 ML VIAL IV PRN (15:02)
[2022-09-26] MEDS ORDERED: DEXTROSE 10% 250 ML BAG IV PRN ×2 (15:16→16:50)
[2022-09-26] MEDS ORDERED: INSULIN LISPRO 100 UNIT/ML SUBCUT SCH (16:30)
[2022-09-26] MEDS ORDERED: MAGNESIUM SULF RIDER 4 GM/100 ML PREMIX IV PRN (16:50)
[2022-09-26] MEDS ORDERED: POTASSIUM CHLORIDE 20 MEQ TABLET PO PRN (16:50)
[2022-09-26] MEDS ORDERED: POTASSIUM CHLORIDE RIDER 10 MEQ/100 ML PREMIX IV PRN (16:50)
[2022-09-26] MEDS ORDERED: MAGNESIUM SULF RIDER 2 GM/50 ML PREMIX IV PRN (16:50)
[2022-09-26] MEDS ORDERED: LEVOFLOXACIN 750 MG TABLET PO SCH (17:00)
[2022-09-26] MEDS: SODIUM CHLORIDE 0.9% 1,000 ML IV SCH (17:16)
[2022-09-26] MEDS ORDERED: INFLUENZA VIRUS VACCINE 0.5 ML SYRINGE IM ONE (18:38)
[2022-09-26] MEDS: PANTOPRAZOLE 40 MG TABLET PO SCH (18:46)
[2022-09-26] MEDS ORDERED: ALBUTEROL/IPRATROPIUM 3 ML NEB RESP TX SCH (19:00)
[2022-09-26] MEDS: ALBUTEROL/IPRATROPIUM 3 ML NEB RESP TX SCH (19:34)
[2022-09-26] MEDS: DOCUSATE SODIUM 100 MG CAPSULE PO SCH (21:12)
[2022-09-26] MEDS: ATORVASTATIN 40 MG TABLET PO SCH (21:12)
[2022-09-26] MEDS: TAMSULOSIN 0.4 MG CAPSULE PO SCH (21:12)
[2022-09-26] MEDS: cefTRIAXone 1,000 MG in SODIUM CHLORIDE 0.9% 100 ML IV SCH (21:13)
[2022-09-26] MEDS: INSULIN LISPRO 100 UNIT/ML SUBCUT SCH (21:14)
[2022-09-26] MEDS: SODIUM CHLORIDE/POTASSIUM CHLORIDE TABLET PO SCH (21:15)
[2022-09-26] MEDS: ARIPiprazole 5 MG TABLET PO SCH (21:19)
[2022-09-27] MEDS: ALBUTEROL/IPRATROPIUM 3 ML NEB RESP TX SCH ×7 (00:38→23:36)
[2022-09-27] MEDS ORDERED: LORazepam 0.5 MG TABLET PO ONE (00:44)
[2022-09-27] MEDS: SODIUM CHLORIDE 0.9% 1,000 ML IV SCH ×2 (03:34→22:40)
[2022-09-27 05:36] LABS: Basophils # 0.1 10*3/uL (0.0-0.2); Basophils % 0.8 % (0.0-0.8); Eosinophils # 0.6 10*3/uL (0.0-0.87); Eosinophils % 6.7 % (0.00-10.9); Hematocrit 25.2 VOL% (42.0-52.0); Hemoglobin 8.6 GM/DL (14.0-18.0); Immature Granulocytes % 0.8 %; Immature Granulocytes Absolute 0.08 #; Lymphocytes # 1.2 10*3/uL (1.4-4.0); Lymphocytes % 12.2 % (21.2-54.2); Mean Corpuscular HGB Conc 34.1 GM/DL (32-36); Mean Corpuscular Volume 83.4 FL (87-102); Mean Platelet Volume 9.9 FL (9.6-12.0); Monocytes # 0.9 10*3/uL (0.11-0.8); Monocytes % 9.5 % (1.7-12.7); Platelet Count 190 T/CUMM (130-400); Red Blood Count 3.02 MC/CUMM (3.8-5.5); White Blood Count 9.4 T/CUMM (4-12)
[2022-09-27 06:01] LABS: Albumin 3.4 G/DL (3.4-5.0); Bilirubin,Total 0.6 MG/DL (0.20-1.00); Calcium 8.4 MG/DL (8.5-10.1); Osmolality,Calculated 239.3 MOS/KG (273-304); Potassium 4.1 MMOL/L (3.5-5.1); Total Protein 6.6 G/DL (6.4-8.2)
[2022-09-27] MEDS: INSULIN LISPRO 100 UNIT/ML SUBCUT SCH ×4 (08:00→20:12)
[2022-09-27] MEDS: ARIPiprazole 5 MG TABLET PO SCH (08:24)
[2022-09-27] MEDS: SODIUM CHLORIDE/POTASSIUM CHLORIDE TABLET PO SCH ×2 (08:24→20:40)
[2022-09-27] MEDS: DOCUSATE SODIUM 100 MG CAPSULE PO SCH ×3 (08:24→20:42)
[2022-09-27] MEDS: PANTOPRAZOLE 40 MG TABLET PO SCH (08:25)
[2022-09-27] MEDS: TAMSULOSIN 0.4 MG CAPSULE PO SCH ×2 (08:25→20:41)
[2022-09-27] MEDS ORDERED: PANTOPRAZOLE 40 MG TABLET PO SCH (09:00)
[2022-09-27] MEDS: NICOTINE 14 MG/24 HR PATCH TRANSDERM SCH (11:35)
[2022-09-27] MEDS: GABAPENTIN 300 MG CAPSULE PO SCH ×2 (14:20→20:40)
[2022-09-27] MEDS: amLODIPine 2.5 MG TABLET PO SCH ×2 (14:20→20:40)
[2022-09-27] MEDS: cefTRIAXone 1,000 MG in SODIUM CHLORIDE 0.9% 100 ML IV SCH (17:26)
[2022-09-27] MEDS: metFORMIN 500 MG TABLET PO SCH (20:40)
[2022-09-27] MEDS: MAGNESIUM OXIDE 400 MG TABLET PO SCH (20:42)
[2022-09-27] MEDS: ATORVASTATIN 40 MG TABLET PO SCH (20:42)
[2022-09-27] MEDS: carvediloL 6.25 MG TABLET PO SCH (20:42)
[2022-09-28] MEDS: ALBUTEROL/IPRATROPIUM 3 ML NEB RESP TX SCH ×4 (03:04→14:26)
[2022-09-28 05:40] LABS: Basophils # 0.1 10*3/uL (0.0-0.2); Basophils % 0.8 % (0.0-0.8); Eosinophils # 0.6 10*3/uL (0.0-0.87); Eosinophils % 6.6 % (0.00-10.9); Hematocrit 27.4 VOL% (42.0-52.0); Hemoglobin 9.1 GM/DL (14.0-18.0); Immature Granulocytes % 0.7 %; Immature Granulocytes Absolute 0.06 #; Lymphocytes # 1.2 10*3/uL (1.4-4.0); Lymphocytes % 14.6 % (21.2-54.2); Mean Corpuscular HGB Conc 33.2 GM/DL (32-36); Mean Corpuscular Volume 87.8 FL (87-102); Mean Platelet Volume 9.9 FL (9.6-12.0); Monocytes % 11.4 % (1.7-12.7); Neutrophils % 65.9 % (38.7-73.9); Platelet Count 211 T/CUMM (130-400); Red Blood Count 3.12 MC/CUMM (3.8-5.5); Red Cell Distribution Width 13.2 % (9.3-17.3); White Blood Count 8.4 T/CUMM (4-12)
[2022-09-28 06:06] LABS: Alanine Aminotransferase 30 U/L (16-61); Albumin 3.3 G/DL (3.4-5.0); Alkaline Phosphatase 47 U/L (45-117); Aspartate Amino Transferase 18 U/L (0-37); Bilirubin,Total < 0.39 MG/DL (0.20-1.00); Blood Urea Nitrogen 16 MG/DL (7-18); Calcium 8.7 MG/DL (8.5-10.1); Carbon Dioxide 22 MMOL/L (21-32); Chloride 101 MMOL/L (98-107); Glucose 222 MG/DL (74-106); Osmolality,Calculated 267.8 MOS/KG (273-304); Potassium 4.3 MMOL/L (3.5-5.1); Sodium 130 MMOL/L (136-145); Total Protein 6.6 G/DL (6.4-8.2)
[2022-09-28] MEDS: GABAPENTIN 300 MG CAPSULE PO SCH ×2 (08:07→14:16)
[2022-09-28] MEDS: NICOTINE 14 MG/24 HR PATCH TRANSDERM SCH (08:07)
[2022-09-28] MEDS: DOCUSATE SODIUM 100 MG CAPSULE PO SCH ×2 (08:08→08:18)
[2022-09-28] MEDS: metFORMIN 500 MG TABLET PO SCH (08:08)
[2022-09-28] MEDS: amLODIPine 2.5 MG TABLET PO SCH (08:08)
[2022-09-28] MEDS: TAMSULOSIN 0.4 MG CAPSULE PO SCH (08:09)
[2022-09-28] MEDS: carvediloL 6.25 MG TABLET PO SCH (08:09)
[2022-09-28] MEDS: PANTOPRAZOLE 40 MG TABLET PO SCH (08:10)
[2022-09-28] MEDS: MAGNESIUM OXIDE 400 MG TABLET PO SCH (08:10)
[2022-09-28] MEDS: INSULIN LISPRO 100 UNIT/ML SUBCUT SCH ×2 (08:11→12:18)
[2022-09-28] MEDS: ARIPiprazole 5 MG TABLET PO SCH (08:18)
[2022-09-28] MEDS ORDERED: CLOPIDOGREL 75 MG TABLET PO SCH (09:00)
[2022-09-28] MEDS ORDERED: SERTRALINE 50 MG TABLET PO SCH (09:00)
[2022-09-28] MEDS ORDERED: DUTASTERIDE 0.5 MG CAPSULE PO SCH (09:00)
[2022-09-28] MEDS ORDERED: SODIUM CHLORIDE/POTASSIUM CHLORIDE TABLET PO SCH (09:00)
[2022-09-28] MEDS ORDERED: ASPIRIN CHEW 81 MG TABLET PO SCH (09:00)
[2022-09-28] MEDS ORDERED: sitaGLIPtin 100 MG TABLET PO SCH (09:00)
[2022-09-28 12:15] VITALS: BP 156/56
== END 2022-09-28 16:02 | disposition home health service (06) ==
LOC: N.EDINP 12:52 → N.ED 12:52 → N.EDINP 18:15 → N.2W 18:50
PROVIDERS: ADMIT Family Medicine; ATTEND Family Medicine